=== PATIENT | female | born 1940 | race Caucasian/White ===

== ENCOUNTER 2016-06-27 14:27 | Emergency (ER) | payer MEDICARE ==
[~2016-06-27] VITALS: Ht 215.9 cm; Wt 92.4 kg
[~2016-06-27 14:27] MED LIST: CHOL200047 PO; CITA10TA7 PO; DICL100G5 TOP; GLIP5TAB PO; INSU100V12 SQ; LOSA100T44 PO; METO-277 PO; POTA-81 PO; SPIR25TA PO
[2016-06-27 14:30] VITALS: Ht 215.9 cm; Wt 92.4 kg
--- OUTSIDE RECORDS SUMMARY | 2016-06-27 14:31 | XMS REPORT | Continuity of Care Document ---
Author Author [place] [facility] Organization [facility] Address Unknown Phone Unavailable Support Name Relationship Address Phone JUNE, JOHNATHON Yeager DO Caregiver [address] [facility] [address] [facility] [place] [address] Unavailable MUSTAPHALUIS ALFREDO Matos Caregiver [address] [facility] [place] [address] Unavailable PAT BEATTY Next Of Kin [address] [place] [address] Insurance Providers Guarantor La Beatty Address [address] [place] [address] Email DENIED/NO TO PT PORTAL Payer Medicareadvantra Ppo Policy Number [id number] Subscriber's Name La Beatty Relationship 18 Self Group Number [id number] Advance Directives Directive Response Recorded Date/Time Advanced Directives Type None 11/09/15 8:10am Chief Complaint and Reason for Visit Chief Complaint Diabetic Problem Reason for Visit Adjustment disorder [id number] Problems Active Problems Medical Problem Onset Date Status Acute kidney injury Unknown Resolved CKD (chronic kidney disease), stage III Unknown Chronic Carotid stenosis Unknown Chronic Chronic kidney disease (CKD) Unknown Chronic DMII (diabetes mellitus, type 2) Unknown Chronic Degenerative arthritis of left knee Unknown Chronic Depression Unknown Chronic HTN (hypertension) Unknown Chronic Hyperkalemia Unknown Resolved Hyperlipidemia Unknown Chronic Hyperparathyroidism Unknown Chronic Hypertension Unknown Chronic Hyponatremia Unknown Acute Leukocytosis Unknown Resolved Lumbar spondylosis Unknown Chronic ADRIANA (obstructive sleep apnea) Unknown Chronic Obesity (BMI 30-39.9) Unknown Chronic Past Problems Medical Problem Onset Date Adjustment disorder Unknown Diabetes Unknown Fall on same level Unknown Left knee pain Unknown Low back pain Unknown Medications Current Home Medications Medication Dose Units Route Directions Days Qty Instructions Start Date Cholecalciferol (Vitamin D3) (Vitamin D3) 2,000 Unit Capsule 2,000 Unit Oral Daily 02/28/14 Citalopram Hydrobromide (Citalopram Hbr) 10 Mg Tablet 10 Mg Oral Daily 11/09/15 Diclofenac Sodium (Voltaren) 100 Gm Gel..gram. 1 Applic Topically Three Times A Day as needed for Prn Orders 11/09/15 Glipizide (Glipizide Xl) 5 Mg Tab.er.24 5 Mg Oral Twice A Day 11/15 Insulin Detemir (Levemir) 100 Unit/Ml Inj 40 Unit Sub-Q Bedtime 03/14/15 Losartan Potassium 100 Mg Tablet 100 Mg Oral Daily 11/09/15 Metoprolol Succinate 50 Mg Tab.er.24h 50 Mg Oral Daily 03/14/15 Potassium Chloride 20 Meq Tablet.er 40 Meq Oral Give With Breakfast 11/09/15 Spironolactone (Aldactone) 25 Mg Tablet 25 Mg Oral Daily 08/29/08 Past Home Medications Medication Directions Ordered Status Aspirin (Aspirin Ec) 81 Mg Tablet.dr, 1 Tab Oral Bedtime 03/14/15 Discontinued Losartan/Hydrochlorothiazide (Losartan-Hctz 100-12.5 Mg Tab) 1 Each Tablet, 1 Tab Oral Daily 02/28/14 Discontinued Pioglitazone Hcl 45 Mg Tablet, 1 Tab Oral Daily 02/28/14 Discontinued Potassium Gluconate 500 Mg Tablet, 595 Daily 03/01/14 Discontinued Social History Social History Problem Response Recorded Date/Time Onset Date Status Chewing Tobacco Status No 11/09/2015 8:45am Not Applicable Not Applicable Hx Substance Use No 11/09/2015 8:45am Not Applicable Not Applicable Hx Alcohol Use No 11/09/2015 8:45am Not Applicable Not Applicable Has the pt used tobacco in the last 12 months No 04/17/2015 6:37am Not Applicable Not Applicable Tobacco Usage none 04/18/2015 1:08pm Not Applicable Not Applicable Query Response Start Date Stop Date Smoking Status Unknown if ever smoked Hospital Discharge Instructions No hospital discharge instructions. Plan of Care Discharge Date 11/09/15 12:02pm Disposition 01 DISCHARGED HOME, SELF-CARE Condition at Discharge Improved Instructions/Education Provided Adjustment Disorder Prescriptions See Medication Section Referrals LUIS ALFREDO MAN DO Order Date: 1 Week Address: [address] [place] [address] [address] [place], [place] [phone] Note: Additional Instructions/Education Follow up with your doctor. Care Plan and Goals Physician Care Plan Problem: Adjustment disorder Goal: Follow up with primary care provider Instructions: Take medications and follow care plan as discussed/written Functional Status No functional status results. Allergies, Adverse Reactions, Alerts Allergen Type Severity Reaction Status Last Updated No Known Drug Allergies Allergy Unknown Active 11/09/15 Immunizations Query Response on File Recorded Date/Time Hx Influenza Vaccination Y NOVEMBER 2014 04/17/15 6:37am Hx Pneumococcal Vaccination Y PREVNAR 11 FEB 2015 04/17/15 6:37am Hx Influenza Vaccination Y NOVEMBER 2014 04/17/15 6:37am Influenza Vaccine Hx OCT. 201411/09/15 8:45am Vital Signs Acute Vital Signs Vital Response Date/Time Temperature (Fahrenheit) 98.2 deg F (96.8 - 99.1) 11/09/2015 12:02pm Temperature (Calculated Celsius) 36.03565 degrees C (36.0 - 37.3) 11/09/2015 12:02pm Pulse Rate (adult) 55 bpm (60 - 100) 11/09/2015 12:02pm Respiratory Rate 16 breaths/min (10 - 20) 11/09/2015 12:02pm O2 Sat by Pulse Oximetry 92 % (90 - 100) 11/09/2015 12:02pm Blood Pressure 134/62 mm Hg 11/09/2015 12:02pm Height (Feet) 5 feet 11/09/2015 8:10am Height (Inches) 2.00 inches 11/09/2015 8:10am Weight (Kilograms) 91.100 kg 11/09/2015 8:10am Body Mass Index (BMI) 36.0 11/09/2015 8:10am Results Laboratory Results Test Name Result Units Flags Reference Collection Date/Time Result Date/ Time Comments White Blood Count 8.5 T/MM3 4.5-11.0 11/09/2015 8:51am 11/09/2015 8: 58am Red Blood Count 4.32 M/MM3 4.00-5.20 11/09/2015 8:51am 11/09/2015 8: 58am Hemoglobin 12.6 GM/DL -11/09/2015 8:51am 11/09/2015 8:58am Hematocrit 38.1 % 36-46 11/09/2015 8:51am 11/09/2015 8:58am Mean Corpuscular Volume 88.2 UM3 80-100 11/09/2015 8:51am 11/09/2015 8: 58am Mean Corpuscular Hemoglobin 29.2 UUG 26-34 11/09/2015 8:51am 2015 8:58am Mean Corpuscular Hemoglobin Concent 33.1 GM/DL 31-37 11/09/2015 8:5111/09/2015 8:58am RDW Standard Deviation 37.6 FL 36.9-50.2 11/09/2015 8:51am 11/09/2015 8 :58am Platelet Count 300 T/MM3 130-400 11/09/2015 8:51am 11/09/2015 8:58am Mean Platelet Volume 9.2 UM3 L 9.4-12.4 11/09/2015 8:51am 11/09/2015 8: 58am Neutrophils (%) (Auto) 53.3 % 33-66 11/09/2015 8:51am 11/09/2015 8: 58am Lymphocytes (%) (Auto) 36.0 % 23-45 11/09/2015 8:51am 11/09/2015 8: 58am Monocytes (%) (Auto) 9.4 % H 0-9.0 11/09/2015 8:51am 11/09/2015 8:58am Eosinophils (%) (Auto) 0.7 % 0-4 11/09/2015 8:51am 11/09/2015 8:58am Basophils (%) (Auto) 0.4 % 0-2 11/09/2015 8:51am 11/09/2015 8:58am Immature Granulocyte % (Auto) 0.2 % 0.0-0.5 11/09/2015 8:am 2015 8:58am Absolute Neutrophils (auto) 4.5 T/MM3 1.8-7.7 11/09/2015 8:51am 2015 8:58am Absolute Lymphocytes (auto) 3.1 T/MM3 1-4.8 11/09/2015 8:51am 2015 8:58am Absolute Monocytes (auto) 0.8 T/MM3 0-0.8 11/09/2015 8:51am 11/09/2015 8:58am Absolute Eosinophils (auto) 0.1 T/MM3 0-0.5 11/09/2015 8:51am 2015 8:58am Absolute Basophils (auto) 0.0 T/MM3 0-0.2 11/09/2015 8:51am 11/09/2015 8:58am Absolute Immature Granulocyte (auto 0.02 T/MM3 0.00-0.03 11/09/2015 8: 51am 11/09/2015 8:58am Icterus Index < 2 0-7 11/09/2015 8:51am 11/09/2015 9:10am Chemistry Specimen Hemolysis < 15 0-25 11/09/2015 8:51am 11/09/2015 9 :10am 0-25: Specimen Exhibited No Hemolysis. Turbidity < 20 0-20 11/09/2015 8:51am 11/09/2015 9:10am Sodium Level 137 MEQ/L 134-144 11/09/2015 8:51am 11/09/2015 9:10am Potassium Level 4.0 MEQ/L 3.6-5 11/09/2015 8:51am 11/09/2015 9:10am Chloride Level 99 MEQ/L 98-107 11/09/2015 8:51am 11/09/2015 9:10am Carbon Dioxide Level 26 MEQ/L 22-30 11/09/2015 8:51am 11/09/2015 9: 10am Anion Gap 12 MEQ/L 5-15 11/09/2015 8:51am 11/09/2015 9:10am Blood Urea Nitrogen 19.0 MG/DL H 7-17 11/09/2015 8:51am 11/09/2015 9: 10am Creatinine 0.9 MG/DL 0.7-1.2 11/09/2015 8:51am 11/09/2015 9:10am BUN/Creatinine Ratio 21 RATIO 6-26 11/09/2015 8:51am 11/09/2015 9:10am Glomerular Filtration Rate Calc 61 11/09/2015 8:51am 11/09/2015 9: 10am Glucose Level 110 MG/DL 65-110 11/09/2015 8:51am 11/09/2015 9:10am Calculated Osmolality 267 MOSM/KG 261-280 11/09/2015 8:51am 11/09/2015 9:10am Calcium Level 9.8 MG/DL 8.4-10.2 11/09/2015 8:51am 11/09/2015 9:10am Troponin I < 0.012 ng/ml 0-0.12 11/09/2015 8:51am 11/09/2015 9:21am Troponin values with a difference of 55% increase from orginal troponin value represent a true biological DELTA value. (%increase Calc=Orginal Troponin value, divided by subsequent Troponin value, multiplied by 100) Urine Collection Type CLEANCATCH-MIDSTREAM 11/09/2015 10:46am 11/08 10:57am Urine Color YELLOW YELLOW 11/09/2015 10:46am 11/09/2015 10:57am Urine Turbidity CLEAR CLEAR 11/09/2015 10:46am 11/09/2015 10:57am Urine Specific Shushan <=1.005 L 1.015-1.025 11/09/2015 10:46am 2015 10:57am Urine pH 6.5 5.0-8.0 11/09/2015 10:46am 11/09/2015 10:57am Urine Leukocyte Esterase TRACE A NEGATIVE 11/09/2015 10:46am 2015 10:57am Urine Nitrite NEGATIVE NEGATIVE 11/09/2015 10:46am 11/09/2015 10: 57am Urine Protein NEGATIVE NEGATIVE 11/09/2015 10:46am 11/09/2015 10: 57am Urine Glucose (UA) NEGATIVE NEGATIVE 11/09/2015 10:46am 11/09/2015 10 :57am Urine Ketones NEGATIVE NEGATIVE 11/09/2015 10:46am 11/09/2015 10: 57am Urine Urobilinogen 0.2 EU/DL NORMAL 11/09/2015 10:46am 11/09/2015 10: 57am Urine Bilirubin NEGATIVE NEGATIVE 11/09/2015 10:46am 11/09/2015 10: 57am Urine Blood 2+ A NEGATIVE 11/09/2015 10:46am 11/09/2015 10:57am Urine WBC 1-3 /HPF 0-5 11/09/2015 10:46am 11/09/2015 11:31am Urine RBC 3-5 /HPF H 0-3 11/09/2015 10:46am 11/09/2015 11:31am Urine Squamous Epithelial Cells 0-5 11/09/2015 10:46am 11/09/2015 11:31am Urine Bacteria TRACE H NEGATIVE 11/09/2015 10:46am 11/09/2015 11:31am Urine Culture Indicated CULT NOT INDICATED 11/09/2015 10:46am 11/08 11:31am Glucometer 121 mg/dL H 65-110 11/09/2015 8:20am 11/09/2015 8:23am Name: LA BEATTY Unit #: [id number] : 1940 Sex: F Admit Date: Loc / Svc: ED Discharge Date: DIAGNOSTIC IMAGING REPORT Report #: [id number] [facility] [place] Indication: ITS.REASON: Shakiness PROCEDURE: CHEST 1 VIEW: Encounter: Initial Comparison: None FINDINGS: The lungs are clear. There is no abnormal airspace opacity, pleural effusion or pneumothorax identified. Cardiac silhouette is upper limits of normal to mildly enlarged. Prior sternotomy. Mediastinal contours and pulmonary vascularity appear normal. IMPRESSION: No pneumonia or congestive failure. Enlargement of the cardiac silhouette is probably due to cardiomegaly rather than pericardial effusion. . Procedures No known history of procedures. Encounters Encounter Location Arrival/Admit Date Discharge/Depart Date Attending Provider Departed Emergency Room [facility] 11/09/15 8:03am 11/09/15 12: 02pm JOHNATHON KEYS DO Recent Diagnosis
--- OUTSIDE RECORDS SUMMARY | 2016-06-27 14:31 | XMS REPORT | Continuity of Care Document ---
Author Author [place] [facility] Organization [facility] Address Unknown Phone Unavailable Support Name Relationship Address Phone SUZETTE TATUM MD Caregiver [address] [place] [address] [place] [address] [phone] ROBERTO WAKEFIELD MD Caregiver [address] [place] [address] [place] [address] [phone] PAT BEATTY Next Of Kin [address] [place] [address] Insurance Providers Payer Name Policy Number Subscriber Name Relationship Medicareadvantra Ppo [id number] La Beatty 18 Self Advance Directives Directive Response Recorded Date/Time Ordered Resuscitation Status Full Code, unverified 06/06/14 8:44am Resuscitation Documents on File No 06/05/14 2:35pm Problems No known problems or medical conditions. Medications Medication Dose Route Sig Days/Qty Instructions Order Date Discontinued Date Status Spironolactone 25 Mg PO DAILY 08/29/08 Active Aspirin 81 Mg PO DAILY 08/29/08 Active Insulin Glargine 30 Unit SQ BEDTIME 08/29/08 Active Furosemide 20 Mg PO DAILY 08/29/08 Active Metoprolol Tartrate 50 Mg PO DAILY 08/29/08 Active Pioglitazone HCl 1 Tab PO DAILY 30 Qty 02/28/14 Active Losartan/Hydrochlorothiazide 1 Tab PO DAILY 02/28/14 Active Cholecalciferol (Vitamin D3) 1 Tab PO DAILY 02/28/14 Active Potassium Gluconate 595 DAILY 03/01/14 Active Social History Social History Problem Response Recorded Date/Time Chewing Tobacco Status No 06/07/2014 8:12am Hx Substance Use No 06/07/2014 8:12am Hx Alcohol Use No 06/07/2014 8:12am Has the pt used tobacco in the last 12 months No 06/07/2014 8:12am Query Response Start Date Stop Date Smoking Status Never smoker Hospital Discharge Instructions No hospital discharge instructions. Plan of Care No plan of care. Functional Status No functional status results. Allergies, Adverse Reactions, Alerts Allergen Type Severity Reaction Status Last Updated No Known Drug Allergies Allergy Unknown Active 08/29/08 Immunizations Name Given Type Hx Influenza Vaccination Y FALL 2013 Historical Hx Pneumococcal Vaccination No Historical Hx Influenza Vaccination Y FALL 2013 Historical Vital Signs Acute Vital Signs Vital Response Date/Time Temperature (Fahrenheit) 97.0 deg F (96.8 - 99.1) Temperature (Calculated Celsius) 36.34754 degrees C (36.0 - 37.3) Temperature Source Temporal Pulse Rate (adult) 56 bpm (60 - 100) Respiratory Rate 15 breaths/min (10 - 20) O2 Sat by Pulse Oximetry 96 % (90 - 100) Oxygen Delivery Method Room Air Blood Pressure 125/57 mm Hg Blood Pressure Source Automatic Cuff Height 5 ft 2.5 in Weight 209 lb Body Mass Index 37.0 kg/m^2 Results Test Source Date Result Interp. Ref. Range Comments Activated Partial Thromboplast Time August 29, 2008 6:55pm 23.0 SEC L 25- 36 Alanine Aminotransferase (ALT/SGPT) August 29, 2008 6:55pm 27 U/L N 9-52 Albumin August 29, 2008 6:55pm 4.34 G/DL N 3.5-5.0 Albumin/Globulin Ratio August 29, 2008 6:55pm 1.4 RATIO N 1.1-2.2 Alkaline Phosphatase August 29, 2008 6:55pm 89 U/L N 38-126 Anion Gap June 07, 2014 8:13am 12 MEQ/L N 5-15 COMMENT SCU WILL CALL Aspartate Amino Transf (AST/SGOT) August 29, 2008 6:55pm 25 U/L N 14-36 B-Type Natriuretic Peptide August 29, 2008 6:55pm 116 PG/ML H 15-100 BUN/Creatinine Ratio June 07, 2014 8:13am 20 RATIO N 6-26 COMMENT SCU WILL CALL Band Neutrophils # August 29, 2008 6:55pm 0.2 T/MM3 - Band Neutrophils % August 29, 2008 6:55pm 2.0 % N 0-6 Basophils # (Auto) June 07, 2014 8:13am 0.0 T/MM3 N 0-0.2 Basophils (%) (Auto) June 07, 2014 8:13am 0.5 % N 0-2 Blood Urea Nitrogen June 07, 2014 8:13am 16.0 MG/DL N 7-17 COMMENT SCU WILL CALL Calcium Level June 07, 2014 8:13am 10.4 MG/DL H 8.4-10.2 COMMENT SCU WILL CALL Calculated Osmolality June 07, 2014 8:13am 276 MOSM/KG N 261-280 COMMENT SCU WILL CALL Carbon Dioxide Level June 07, 2014 8:13am 25 MEQ/L N 22-30 COMMENT SCU WILL CALL Chemistry Specimen Hemolysis June 07, 2014 8:13am < 15 0-25 0-25: No Hemolysis.26-70: Slight Hemolysis - can falsely elevate K and Urine Protein. 71-285: Moderate Hemolysis - can falsely elevate K, Troponin I, CA 19-9, PTH, CSF GLucose, and Urine Protein, and can falsely decrease Phenytoin. 286-999: Gross Hemolysis - can falsely elevate K, Troponin I, CA 19-9, PTH, CSF Glucose, and Urine Protine, and can falsely decrease Phenytoin. Recommend specimen recollection. Chloride Level June 07, 2014 8:13am 106 MEQ/L N 98-107 COMMENT SCU WILL CALL Creatinine June 07, 2014 8:13am 0.8 MG/DL N 0.7-1.2 COMMENT SCU WILL CALL Differential Total Cells Counted August 29, 2008 6:55pm 100 % - EKG August 30, 2008 6:20am Complete - Eosinophils # (Auto) June 07, 2014 8:13am 0.1 T/MM3 N 0-0.5 Eosinophils # (Manual) August 29, 2008 6:55pm 0.1 T/MM3 N 0-0.5 Eosinophils % (Manual) August 29, 2008 6:55pm 1.0 % N 0-4 Eosinophils (%) (Auto) June 07, 2014 8:13am 2.2 % N 0-4 Globulin August 29, 2008 6:55pm 3.0 G/DL N 2.4-3.6 Glomerular Filtration Rate Calc June 07, 2014 8:13am 71 - COMMENT SCU WILL CALL Glucometer June 07, 2014 10:34am 86 mg/dL N 65-110 Glucose Level June 07, 2014 8:13am 96 MG/DL N 65-110 COMMENT SCU WILL CALL Hematocrit June 07, 2014 8:13am 37.0 % N 36-46 Hemoglobin June 07, 2014 8:13am 12.0 GM/DL N 12-16 Icterus Index June 07, 2014 8:13am < 2 0-7 COMMENT SCU WILL CALL Immature Granulocyte # (Auto) June 07, 2014 8:13am 0.01 T/MM3 N 0.00- 0.03 Immature Granulocyte % (Auto) June 07, 2014 8:13am 0.2 % N 0.0-0.5 Lab Scanned Report May 04, 2014 7:49pm LAB TEST FORM REQUEST - Lymphocytes # (Auto) June 07, 2014 8:13am 2.7 T/MM3 N 1-4.8 Lymphocytes # (Manual) August 29, 2008 6:55pm 4.4 T/MM3 N 1-4.8 Lymphocytes % (Manual) August 29, 2008 6:55pm 41.0 % N 23-45 Lymphocytes (%) (Auto) June 07, 2014 8:13am 41.8 % N 23-45 Mean Corpuscular Hemoglobin June 07, 2014 8:13am 30.4 UUG N 26-34 Mean Corpuscular Hemoglobin Concent June 07, 2014 8:13am 32.4 GM/DL N 31-37 Mean Corpuscular Volume June 07, 2014 8:13am 93.7 UM3 N 80-100 Mean Platelet Volume June 07, 2014 8:13am 9.3 UM3 L 9.4-12.4 Monocytes # (Auto) June 07, 2014 8:13am 0.8 T/MM3 N 0-0.8 Monocytes # (Manual) August 29, 2008 6:55pm 0.8 T/MM3 N 0-0.8 Monocytes % (Manual) August 29, 2008 6:55pm 7.0 % N 0-9.0 Monocytes (%) (Auto) June 07, 2014 8:13am 12.4 % H 0-9.0 II-Gqf-G-Type Natriuretic Peptide May 04, 2014 10:10am 582 PG/ML H 0- 175 Rule in cut points: <50 years old=450; 50-75 years old=900; >75 years old=1800; When utilizing ProBNP rule-in cut points, adjustment for impaired renal function is typically not required. Neutrophils # (Auto) June 07, 2014 8:13am 2.8 T/MM3 N 1.8-7.7 Neutrophils # (Manual) August 29, 2008 6:55pm 5.3 T/MM3 N 1.8-7.7 Neutrophils % (Manual) August 29, 2008 6:55pm 49.0 % N 33-66 Neutrophils (%) (Auto) June 07, 2014 8:13am 42.9 % N 33-66 Platelet Count June 07, 2014 8:13am 231 T/MM3 N 130-400 Potassium Level June 07, 2014 8:13am 4.4 MEQ/L N 3.6-5 COMMENT SCU WILL CALL Prothromb Time International Ratio August 29, 2008 6:55pm 0.76 L 0.79- 1.23 THERAPUTIC RANGE=2.00-3.00 FOR ANTI-THROMBOSIS THERAPUTIC RANGE=2.50- 3.50 FOR IMPLANTED VALVE RDW Standard Deviation June 07, 2014 8:13am 39.8 FL N 36.9-50.2 Red Blood Count June 07, 2014 8:13am 3.95 M/MM3 L 4.00-5.20 Sodium Level June 07, 2014 8:13am 143 MEQ/L N 134-144 COMMENT SCU WILL CALL Total Bilirubin August 29, 2008 6:55pm 0.27 MG/DL N 0.20-1.30 Total Protein August 29, 2008 6:55pm 7.3 G/DL N 6.3-8.2 Troponin I August 30, 2008 5:30am 0.010 ng/ml N 0-0.12 Turbidity June 07, 2014 8:13am < 20 0-20 COMMENT SCU WILL CALL White Blood Count June 07, 2014 8:13am 6.4 T/MM3 N 4.5-11.0 Procedures Procedure Status Date Provider(s) ROUTINE VENIPUNCTURE completed 04/17/14 ENDOSCOPIC INJECTION/IMPLANT completed 04/17/14 SUZETTE TATUM MD METABOLIC PANEL TOTAL CA completed 04/17/14 COMPLETE CBC W/AUTO DIFF WBC completed 04/17/14 [id number] ITEM OR SERVICE completed 04/17/14 [id number] ITEM OR SERVICE completed 04/17/14 PROPOFOL INJ 500 MG/50ML completed 04/17/14 [id number]"RINGERS LACTATE INFUSION, UP TO 1000 CC" completed 04/17/14 [id number] SHIPPING AND NECESSARY SUPPLIES completed 04/17/14 ASSAY OF NATRIURETIC PEPTIDE completed 05/04/14 Cystoscopy with injection of Coaptite implant completed 06/07/14 SUZETTE TATUM MD Encounters Encounter Location Date/Time Registered Clinic [facility] 05/04/14 10:19am
--- OUTSIDE RECORDS SUMMARY | 2016-06-27 14:32 | XMS REPORT | Referral Summary ---
Author Author [facility], [facility] Organization [facility] Address Unknown Phone Unavailable Care Team Providers Care Community Sports Coordinator Name Role Phone Vipul Jaimes Primary Care Physician [phone] Encounter VC Date(s): 01/28/16 - 01/28/16 [facility] [place], [address] [place] [address] Discharge Disposition: 01-Home or Self Care Attending Physician: Vipul Jaimes DO Admitting Physician: Vipul Jaimes DO Vital Signs No data available for this section Problem List Condition Effective Dates Status Health Status Informant Arthritis(Confirmed) Active patient 1 Benign essential Active hypertension(Confirm ed)2 Hypertensive Active cardiomyopathy(Confi rmed)3 Coronary Active atherosclerosis unspec vessel(Confirmed)4 DDD(Confirmed)5 Active Depressive disorder, 2006 Active not elsewhere classified(Confirmed ) Diabetes w/o Active complication type II(Confirmed)6 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 3mild concentrical VH, mild pulmo. ECHO 06/12/08. See conversion document. 4See conversion document. 5See conversion document. 6See conversion document. 7Rt > Lft. See conversion document. 8See conversion document. 9See conversion document. 10foraminal narrowing L5-S1. See conversion document. 11See conversion document. 12See conversion document. Allergies, Adverse Reactions, Alerts No Known Medication Allergies Medications acetaminophen 650 mg, Oral, QID, 0 Refill(s) Start Date: 04/24/15 Status: Ordered citalopram 10 mg oral tablet See Instructions, TAKE ONE TABLET BY MOUTH DAILY, # 30 tabs, 2 Refill(s), eRx: [facility] #[id number], TAKE ONE TABLET BY MOUTH DAILY Start Date: 12/28/15 Status: Ordered Ecotrin mg, Oral, Daily, 0 Refill(s) Start Date: 04/25/15 Status: Ordered glipiZIDE 5 mg oral tablet 5 mg 1 tabs, Oral, BID, # 180 tabs, 3 Refill(s), Pharmacy: [facility] # [id number], 1 tabs Oral BID,x90 days Start Date: 10/10/15 Stop Date: 10/04/16 Status: Ordered Levemir FlexPen 100 units/mL subcutaneous solution 32 units, SubCutaneous, Bedtime (once a day), 20 units at bedtime, # 2 boxes, 6 Refill(s), Pharmacy: [facility] #[id number], 32 units SubCutaneous Bedtime ( once a day),Instr:32 units at bedtime Start Date: 03/21/15 Status: Ordered losartan 100 mg oral tablet See Instructions, TAKE ONE TABLET BY MOUTH DAILY, # 30 tabs, 2 Refill(s), eRx: [facility] #[id number], TAKE ONE TABLET BY MOUTH DAILY Start Date: 11/13/15 Status: Ordered Metoprolol Succinate ER 50 mg oral tablet, extended release See Instructions, TAKE ONE TABLET BY MOUTH DAILY, # 60 tabs, 2 Refill(s), eRx: [facility] #[id number], TAKE ONE TABLET BY MOUTH DAILY Start Date: 12/19/15 Status: Ordered MiraLax 17 g, Oral, Daily, 0 Refill(s) Start Date: 04/24/15 Status: Ordered Misc Medication Meloxicam/Topiramate/Tramadol/Lidocaine/Prilocaine compunded lotion 0.18/1/0.25 /2/2%, 0 Refill(s) Start Date: 11/01/15 Status: Ordered Miscellaneous DME DME Item One Touch Ultra 2 Glucose Test Strips Test once am & once pm DX - 250.00, See Instructions, # 100 Each, 0 Refill(s), Pharmacy: [id number], One Touch Ultra 2 Glucose Test Strips; Test once am & once pm; DX - 250.00 , Supply Start Date: 06/27/14 Status: Ordered ONETOUCH ULTRA TEST STRIPS See Instructions, USE ONE STRIP TO TEST EVERY MORNING AND EVERY EVENING, # 50 strip, eRx: [facility] #[id number], USE ONE STRIP TO TEST EVERY MORNING AND EVERY EVENING Start Date: 10/26/15 Status: Ordered ONETOUCH ULTRA TEST STRIPS See Instructions, USE ONE STRIP TO TEST EVERY MORNING AND EVERY EVENING, # 50 strip, 2 Refill(s), eRx: [facility] #[id number], USE ONE STRIP TO TEST EVERY MORNING AND EVERY EVENING Start Date: 11/23/15 Status: Ordered ONETOUCH ULTRA TEST STRIPS See Instructions, USE ONE STRIP TO TEST EVERY MORNING AND EVERY EVENING, # 50 strip, 1 Refill(s), eRx: [facility] #[id number], USE ONE STRIP TO TEST EVERY MORNING AND EVERY EVENING Start Date: 08/20/15 Status: Ordered potassium gluconate 595 mg oral tablet 1 tabs, Oral, Daily, # 100 tabs, 0 Refill(s) Start Date: 02/01/14 Status: Ordered spironolactone 25 mg oral tablet See Instructions, TAKE ONE TABLET BY MOUTH DAILY, # 90 tabs, eRx: [facility] #[id number], TAKE ONE TABLET BY MOUTH DAILY Start Date: 11/19/15 Status: Ordered Vitamin D3 2000 intl units oral tablet tabs, Oral, Daily, 0 Refill(s) Start Date: 02/01/14 Status: Ordered Results No data available for this section Immunizations Vaccine Date Refusal Reason influenza virus vaccine, inactivated 01/28/16 influenza virus vaccine, inactivated 02/13/14 pneumococcal 13-valent conjugate vaccine 01/31/15 tetanus-diphth toxoids (Td) adult/adol 09/24/99 Procedures Procedure Date Related Diagnosis Body Site Mammogram - screening1 07/20/15 Parathyroidectomy or exploration of 10/16/14 parathyroid(s);.. Cystoscopy2 06/07/14 Surgery3 04/17/14 CABG x 24 10/2005 Oophorectomy5 1983 Hysterectomy1981 Bladder7 Colonoscopy abnormal8 1done at [facility] [place]. No mammographic evidence of malignancy. See scanned copy 2Third Coaptite suburethral bulking implant. 3Coaptite suburethral bulking implant. 4Dr. Merced. See conversion document. 5She had surgery for ovarian cyst. She reports she has one ovary remaining. 6without SO. See conversion document. 73 bladder implants 8Adenomatous polyp Social History Social History Type Response Smoking Status Never smoker Assessment and Plan No data available for this section
--- OUTSIDE RECORDS SUMMARY | 2016-06-27 14:33 | XMS REPORT | Referral Summary ---
Author Author [facility] Organization [facility] Address Unknown Phone Unavailable Care Team Providers Care Inspector Insulation Name Role Phone Vipul Jaimes Primary Care Physician [phone] Encounter Date(s): 12/31/15 - 12/31/15 [facility] [address] [place] [address] [facility] Discharge Diagnosis: Diabetes type 2, uncontrolled Discharge Diagnosis: Mixed hyperlipidemia Discharge Diagnosis: senior living current use of insulin Discharge Diagnosis: Benign essential hypertension Discharge Diagnosis: Screening for thyroid disorder Discharge Disposition: 01-Home or Self Care Attending Physician: Shonna Lopez APRN Admitting Physician: Shonna Lopez APRN Vital Signs Most recent to 1 oldest [Reference Range]: Peripheral Pulse 72 bpm Rate [60-100 bpm] (12/31/15 2:56 PM) Blood Pressure 120/68 mmHg [90-140/60-90 mmHg] (12/31/15 2:56 PM) Problem List Condition Effective Dates Status Health Status Informant Arthritis(Confirmed) Active patient 1 Benign essential Active hypertension(Confirm ed)2 Hypertensive Active cardiomyopathy(Confi rmed)3 Coronary Active atherosclerosis unspec vessel(Confirmed)4 DDD(Confirmed)5 Active Depressive disorder, 2006 Active not elsewhere classified(Confirmed ) Diabetes w/o Active complication type II(Confirmed)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) Bilateral carotid [...] DAILY, # 30 tabs, 2 Refill(s), eRx: [facility] #[id number], TAKE ONE TABLET BY MOUTH DAILY Start Date: 12/28/15 Status: Ordered Ecotrin mg, Oral, Daily, 0 Refill(s) Start Date: 04/25/15 Status: Ordered glipiZIDE 5 mg oral tablet 5 mg 1 tabs, Oral, BID, # 180 tabs, 3 Refill(s), Pharmacy: [facility] # [id number], 1 tabs Oral BID,x90 days Start Date: 10/10/15 Stop Date: 10/04/16 Status: Ordered Levemir FlexPen 100 units/mL subcutaneous solution 32 units, SubCutaneous, Bedtime (once a day), 20 units at bedtime, # 2 boxes, 6 Refill(s), Pharmacy: [facility] #[id number], 32 units SubCutaneous Bedtime ( once a day),Instr:32 units at bedtime Start Date: 03/21/15 Status: Ordered losartan 100 mg oral tablet See Instructions, TAKE ONE TABLET BY MOUTH DAILY, # 30 tabs, 2 Refill(s), eRx: [facility] #[id number], TAKE ONE TABLET BY MOUTH DAILY Start Date: 11/13/15 Status: Ordered Metoprolol Succinate ER 50 mg oral tablet, extended release See Instructions, TAKE ONE TABLET BY MOUTH DAILY, # 60 tabs, 2 Refill(s), eRx: [facility] #[id number], TAKE ONE TABLET BY MOUTH DAILY Start [...] Instructions, # 100 Each, 0 Refill(s), Pharmacy: [id number], One Touch Ultra 2 Glucose Test Strips; Test once am & once pm; DX - 250.00 , Supply Start Date: 06/27/14 Status: Ordered ONETOUCH ULTRA TEST STRIPS See Instructions, USE ONE STRIP TO TEST EVERY MORNING AND EVERY EVENING, # 50 strip, eRx: [facility] #[id number], USE ONE STRIP TO TEST EVERY MORNING AND EVERY EVENING Start Date: 10/26/15 Status: Ordered ONETOUCH ULTRA TEST STRIPS See Instructions, USE ONE STRIP TO TEST EVERY MORNING AND EVERY EVENING, # 50 strip, 2 Refill(s), eRx: [facility] #[id number], USE ONE STRIP TO TEST EVERY MORNING AND EVERY EVENING Start Date: 11/23/15 Status: Ordered ONETOUCH ULTRA TEST STRIPS See Instructions, USE ONE STRIP TO TEST EVERY MORNING AND EVERY EVENING, # 50 strip, 1 Refill(s), eRx: [facility] #[id number], USE ONE STRIP TO TEST EVERY MORNING AND EVERY EVENING Start Date: 08/20/15 Status: Ordered potassium gluconate 595 mg oral tablet 1 tabs, Oral, Daily, # 100 tabs, 0 Refill(s) Start Date: 02/01/14 Status: Ordered spironolactone 25 mg oral tablet See Instructions, TAKE ONE TABLET BY MOUTH DAILY, # 90 tabs, eRx: [facility] #[id number], TAKE ONE TABLET BY MOUTH DAILY Start Date: 11/19/15 Status: Ordered Vitamin D3 2000 intl units oral tablet tabs, Oral, Daily, 0 Refill(s) Start Date: 02/01/14 Status: Ordered Results No data available for this section Immunizations Vaccine Date Refusal Reason influenza virus vaccine, inactivated 02/13/14 pneumococcal 13-valent conjugate vaccine 01/31/15 tetanus-diphth toxoids (Td) adult/adol 09/24/99 Procedures Procedure Date Related Diagnosis Body Site Mammogram - screening1 07/20/15 Parathyroidectomy or exploration of 10/16/14 parathyroid(s);.. Cystoscopy2 06/07/14 Surgery3 04/17/14 CABG x 24 10/2005 Oophorectomy5 1983 Hysterectomy6 1981 Bladder7 Colonoscopy abnormal8 1done at [facility]. No mammographic evidence of malignancy. See scanned copy 2Third Coaptite suburethral bulking implant. 3Coaptite suburethral bulking implant. 4Dr. Merced. See conversion document. 5She had surgery for ovarian cyst. She reports she has one ovary remaining. 6without SO. See conversion document. 73 bladder implants 8Adenomatous polyp Social History Social History Type Response Smoking Status Never smoker Assessment and Plan Extracted from: Title: Office Visit Note Author: Shonna Lopez BREAKFAST BAR ATTENDANT Date: 12/31/15 Assessment/Plan 1.Diabetes type 2, uncontrolled 1. check blood sugars fasting and 2 hours after meals 3-7 days per week 2. increase levemir 17-22 units 3. drug assistance forms for insulin provided 4. continue same dose of glipizide 5. rotate injection sites 6. monitor diet and exercise 7. monitor feet daily I discussed the patient with the preceptor. Ordered: insulin detemir, 32 units, SubCutaneous, Bedtime (once a day), 20 units at bedtime, # 2 boxes, 6 Refill(s), Pharmacy: [facility] #[id number], 32 units SubCutaneous Bedtime (once a day),Instr:32 units at bedtime Free T4 Hemoglobin A1c Office Visit Level 4 Est [id number] Return to Clinic TSH 3rd Generation 2.termite exterminator current use of insulin Ordered: insulin detemir, 32 units, SubCutaneous, Bedtime (once a day), 20 units at bedtime, # 2 boxes, 6 Refill(s), [facility]: [facility] #[id number], 32 units SubCutaneous Bedtime (once a day),Instr:32 units at bedtime Free T4 Hemoglobin A1c Office Visit Level 4 Est 54752 Return to Clinic TSH 3rd Generation 3.Benign essential hypertension Ordered: Free T4 Hemoglobin A1c Office Visit Level 4 Est 70185 Return to Clinic TSH 3rd Generation 4.Mixed hyperlipidemia Ordered: Free T4 Hemoglobin A1c Office Visit Level 4 Est 67520 Return to Clinic TSH 3rd Generation 5.Screening for thyroid disorder Ordered: Free T4 Hemoglobin A1c Office Visit Level 4 Est 89120 Return to Clinic TSH 3rd Generation Extracted from: Title: Ambulatory Patient Education Author: Shonna Lopez APRN Date: 12/31/15 Home Health Care Diabetes and Exercise Exercising regularly is important. It is not just about losing weight. It has many health benefits, such as: Improving your overall fitness, flexibility, and endurance. Increasing your bone density. Helping with weight control. Decreasing your body fat. Increasing your muscle strength. Reducing stress and tension. Improving your overall health. People with diabetes who exercise gain additional benefits because exercise: Reduces appetite. Improves the body's use of blood sugar (glucose). Helps lower or control blood glucose. Decreases blood pressure. Helps control blood lipids (such as cholesterol and triglycerides). Improves the body's use of the hormone insulin by: Increasing the body's insulin sensitivity. Reducing the body's insulin needs. Decreases the risk for heart disease because exercising: Lowers cholesterol and triglycerides levels. Increases the levels of good cholesterol (such as high-density lipoproteins [HDL]) in the body. Lowers blood glucose levels. YOUR ACTIVITY PLAN Choose an activity that you enjoy, and set realistic goals. To exercise safely, you should begin practicing any new physical activity slowly, and gradually increase the intensity of the exercise over time. Your health care provider or simulation educator can help create an activity plan that works for you. General recommendations include: Encouraging children to engage in at least 60 minutes of physical activity each day. Stretching and performing strength training exercises, such as yoga or weight lifting, at least 2 times per week. Performing a total of at least 150 minutes of moderate-intensity exercise each week, such as brisk walking or water aerobics. Exercising at least 3 days per week, making sure you allow no more than 2 consecutive days to pass without exercising. Avoiding long periods of inactivity (90 minutes or more). When you have to spend an extended period of time sitting down, take frequent breaks to walk or stretch. RECOMMENDATIONS FOR EXERCISING WITH TYPE 1 OR TYPE 2 DIABETES Check your blood glucose before exercising. If blood glucose levels are greater than 240 mg/dL, check for urine ketones. Do not exercise if ketones are present. Avoid injecting insulin into areas of the body that are going to be exercised. For example, avoid injecting insulin into: The arms when playing tennis. The legs when jogging. Keep a record of: Food intake before and after you exercise. Expected peak times of insulin action. Blood glucose levels before and after you exercise. The type and amount of exercise you have done. Review your records with your health care provider. Your health care provider will help you to develop guidelines for adjusting food intake and insulin amounts before and after exercising. If you take insulin or oral hypoglycemic agents, watch for signs and symptoms of hypoglycemia. They include: Dizziness. Shaking. Sweating. Chills. Confusion. Drink plenty of water while you exercise to prevent dehydration or heat stroke. Body water is lost during exercise and must be replaced. Talk to your health care provider before starting an exercise program to make sure it is safe for you. Remember, almost any type of activity is better than none. This information is not intended to replace advice given to you by your health care provider. Make sure you discuss any questions you have with your health care provider. Document Released: 05/08/2004 Document Revised: 07/03/2015 Document Reviewed: [employer] Interactive Patient Education 2016 [employer] No follow up information was provided. Referrals to Other Providers Referred by: Shonna Lopez APRN
--- OUTSIDE RECORDS SUMMARY | 2016-06-27 14:33 | XMS REPORT | Continuity of Care Document ---
Author Author [facility] Organization [facility] Address Unknown Phone Unavailable Support Name Relationship Address Phone SUZETTE TATUM MD Caregiver [address] [place] [address] [place] [address] [phone] ROBERTO WAKEFIELD MD Caregiver [address] [place] [address] [place] [address] [phone] PAT BEATTY Next Of Kin [address] [place] [address] Insurance Providers Payer Name Policy Number Subscriber Name Relationship Medicareadvantra Ppo [id number] [place] 18 Self Advance Directives Directive Response Recorded Date/Time Ordered Resuscitation Status Full Code, unverified 04/14/14 6:06pm Resuscitation Documents on File No 04/14/14 2:23pm Problems No known problems or medical conditions. Medications Medication Dose Route Sig Days/Qty Instructions Order Date Discontinued Date Status Spironolactone 25 Mg PO DAILY 08/29/08 Active Aspirin 81 Mg PO DAILY 08/29/08 Active Insulin Glargine 1-50 Unit SQ NEEDED 08/29/08 Active Furosemide 20 Mg PO DAILY 08/29/08 Active Metoprolol Tartrate 50 Mg PO DAILY 08/29/08 Active Pioglitazone HCl 1 Tab PO DAILY 30 Qty 02/28/14 Active Losartan/Hydrochlorothiazide 1 Tab PO DAILY 02/28/14 Active Cholecalciferol (Vitamin D3) 1 Tab PO DAILY 02/28/14 Active Ezetimibe DAILY 03/01/14 Active Potassium Gluconate 595 DAILY 03/01/14 Active Social History Social History Problem Response Recorded Date/Time Chewing Tobacco Status No 04/17/2014 8:25am Hx Substance Use No 04/17/2014 8:25am Hx Alcohol Use No 04/17/2014 8:25am Has the pt used tobacco in the last 12 months No 04/17/2014 8:25am Query Response Start Date Stop Date Smoking [...] Vital Signs Vital Response Date/Time Temperature (Fahrenheit) 96.9 deg F (96.8 - 99.1) Temperature (Calculated Celsius) 36.15133 degrees C (36.0 - 37.3) Temperature Source Temporal Pulse Rate (adult) 58 bpm (60 - 100) Respiratory Rate 16 breaths/min (10 - 20) O2 Sat by Pulse Oximetry 96 % (90 - 100) Oxygen Delivery Method Room Air Blood Pressure 123/57 mm Hg Blood Pressure Source Automatic Cuff Height 5 ft 2.5 in Weight 206 lb Body Mass Index 37.0 kg/m^2 Results [...] 6:55pm 89 U/L N 38-126 Anion Gap April 17, 2014 8:41am 9 MEQ/L N 5-15 Aspartate Amino Transf (AST/SGOT) August 29, 2008 6:55pm 25 U/L N 14-36 B-Type Natriuretic Peptide August 29, 2008 6:55pm 116 PG/ML H 15-100 BUN/Creatinine Ratio April 17, 2014 8:41am 30 RATIO H 6-26 Band Neutrophils # August 29, 2008 6:55pm 0.2 T/MM3 - Band Neutrophils % August 29, 2008 6:55pm 2.0 % N 0-6 Basophils # (Auto) April 17, 2014 8:41am 0.0 T/MM3 N 0-0.2 COMMENT SCU WILL CALL Basophils (%) (Auto) April 17, 2014 8:41am 0.7 % N 0-2 COMMENT SCU WILL CALL Blood Urea Nitrogen April 17, 2014 8:41am 30.0 MG/DL H 7-17 Calcium Level April 17, 2014 8:41am 10.8 MG/DL H 8.4-10.2 Calculated Osmolality April 17, 2014 8:41am 275 MOSM/KG N 261-280 Carbon Dioxide Level April 17, 2014 8:41am 29 MEQ/L N 22-30 Chemistry Specimen Hemolysis April 17, 2014 8:41am < 15 0-25 0-25 : No Hemolysis.26-70: Slight Hemolysis - can falsely elevate K and Urine Protein. 71-285: Moderate Hemolysis - can falsely elevate K, Troponin I, CA 19-9, PTH, CSF GLucose, and Urine Protein, and can falsely decrease Phenytoin. 286-999: Gross Hemolysis - can falsely elevate K, Troponin I, CA 19-9, PTH, CSF Glucose, and Urine Protine, and can falsely decrease Phenytoin. Recommend specimen recollection. Chloride Level April 17, 2014 8:41am 101 MEQ/L N 98-107 Creatinine April 17, 2014 8:41am 1.0 MG/DL N 0.7-1.2 Differential Total Cells Counted August 29, 2008 6:55pm 100 % - EKG August 30, 2008 6:20am Complete - Eosinophils # (Auto) April 17, 2014 8:41am 0.1 T/MM3 N 0-0.5 COMMENT SCU WILL CALL Eosinophils # (Manual) August 29, 2008 6:55pm 0.1 T/MM3 N 0-0.5 Eosinophils % (Manual) August 29, 2008 6:55pm 1.0 % N 0-4 Eosinophils (%) (Auto) April 17, 2014 8:41am 1.7 % N 0-4 COMMENT SCU WILL CALL Globulin August 29, 2008 6:55pm 3.0 G/DL N 2.4-3.6 Glomerular Filtration Rate Calc April 17, 2014 8:41am 55 - Glucometer August 30, 2008 2:12pm 204 mg/dL - Glucose Level April 17, 2014 8:41am 116 MG/DL H 65-110 Hematocrit April 17, 2014 8:41am 34.8 % L 36-46 COMMENT SCU WILL CALL Hemoglobin April 17, 2014 8:41am 11.2 GM/DL L 12-16 COMMENT SCU WILL CALL Icterus Index April 17, 2014 8:41am < 2 0-7 Immature Granulocyte # (Auto) April 17, 2014 8:41am 0.02 T/MM3 N 0.00 -0.03 COMMENT SCU WILL CALL Immature Granulocyte % (Auto) April 17, 2014 8:41am 0.3 % N 0.0-0.5 COMMENT SCU WILL CALL Lymphocytes # (Auto) April 17, 2014 8:41am 2.5 T/MM3 N 1-4.8 COMMENT SCU WILL CALL Lymphocytes # (Manual) August 29, 2008 6:55pm 4.4 T/MM3 N 1-4.8 Lymphocytes % (Manual) August 29, 2008 6:55pm 41.0 % N 23-45 Lymphocytes (%) (Auto) April 17, 2014 8:41am 43.5 % N 23-45 COMMENT SCU WILL CALL Mean Corpuscular Hemoglobin April 17, 2014 8:41am 29.9 UUG N 26-34 COMMENT SCU WILL CALL Mean Corpuscular Hemoglobin Concent April 17, 2014 8:41am 32.2 GM/DL N 31-37 COMMENT SCU WILL CALL Mean Corpuscular Volume April 17, 2014 8:41am 93.0 UM3 N 80-100 COMMENT SCU WILL CALL Mean Platelet Volume April 17, 2014 8:41am 9.0 UM3 L 9.4-12.4 COMMENT SCU WILL CALL Monocytes # (Auto) April 17, 2014 8:41am 0.6 T/MM3 N 0-0.8 COMMENT SCU WILL CALL Monocytes # (Manual) August 29, 2008 6:55pm 0.8 T/MM3 N 0-0.8 Monocytes % (Manual) August 29, 2008 6:55pm 7.0 % N 0-9.0 Monocytes (%) (Auto) April 17, 2014 8:41am 11.0 % H 0-9.0 COMMENT SCU WILL CALL Neutrophils # (Auto) April 17, 2014 8:41am 2.4 T/MM3 N 1.8-7.7 COMMENT SCU WILL CALL Neutrophils # (Manual) August 29, 2008 6:55pm 5.3 T/MM3 N 1.8-7.7 Neutrophils % (Manual) August 29, 2008 6:55pm 49.0 % N 33-66 Neutrophils (%) (Auto) April 17, 2014 8:41am 42.8 % N 33-66 COMMENT SCU WILL CALL Platelet Count April 17, 2014 8:41am 250 T/MM3 N 130-400 COMMENT SCU WILL CALL Potassium Level April 17, 2014 8:41am 4.6 MEQ/L N 3.6-5 Prothromb Time International Ratio August 29, 2008 6:55pm 0.76 L 0.79- 1.23 THERAPUTIC RANGE=2.00-3.00 FOR ANTI-THROMBOSIS THERAPUTIC RANGE=2.50- 3.50 FOR IMPLANTED VALVE RDW Standard Deviation April 17, 2014 8:41am 40.1 FL N 36.9-50.2 COMMENT SCU WILL CALL Red Blood Count April 17, 2014 8:41am 3.74 M/MM3 L 4.00-5.20 COMMENT SCU WILL CALL Sodium Level April 17, 2014 8:41am 139 MEQ/L N 134-144 Total Bilirubin August 29, 2008 6:55pm 0.27 MG/DL N 0.20-1.30 Total Protein August 29, 2008 6:55pm 7.3 G/DL N 6.3-8.2 Troponin I August 30, 2008 5:30am 0.010 ng/ml N 0-0.12 Turbidity April 17, 2014 8:41am < 20 0-20 White Blood Count April 17, 2014 8:41am 5.7 T/MM3 N 4.5-11.0 COMMENT SCU WILL CALL Procedures Procedure Status Date Provider(s) ROUTINE VENIPUNCTURE completed 03/01/14 ENDOSCOPIC INJECTION/IMPLANT completed 03/01/14 SUZETTE TATUM MD METABOLIC PANEL TOTAL CA completed 03/01/14 COMPLETE CBC W/AUTO DIFF WBC completed 03/01/14 [id number] ITEM OR SERVICE completed 03/01/14 [id number] ITEM OR SERVICE completed 03/01/14 [id number]"RINGERS LACTATE INFUSION, UP TO 1000 CC" completed 03/01/14 [id number] SHIPPING AND NECESSARY SUPPLIES completed 03/01/14 Cystoscopy with injection of Coaptite implant completed 04/17/14 SUZETTE TATUM MD
--- OUTSIDE RECORDS SUMMARY | 2016-06-27 14:33 | XMS REPORT | Referral Summary ---
Author Author [facility], Family [facility] Organization [facility] Address Unknown Phone Unavailable Care Team Providers Care Executive Talent Acquisition Consultant Name Role Phone Vipul Jaimes Primary Care Physician [phone] Encounter VC Date(s): 11/01/15 - 11/01/15 [facility] [place], [address] [place] [address] [[email or web address]] Discharge Diagnosis: Reactive inflammatory arthritis Discharge Diagnosis: Anxiety and depression Discharge Disposition: 01-Home or Self Care Attending Physician: Vipul Jaimes DO Vital Signs Most recent to 1 oldest [Reference Range]: Temperature Tympanic 36.3 degC [36.6-38.1 degC] *LOW* (11/01/15 10:11 AM) Peripheral Pulse 68 bpm Rate [60-100 bpm] (11/01/15 10:11 AM) Blood Pressure 118/52 mmHg [90-140/60-90 mmHg] (11/01/15 10:11 AM) Problem List Condition Effective Dates Status Health Status Informant Arthritis(Confirmed) Active patient 1 Benign essential Active hypertension(Confirm ed)2 Hypertensive Active cardiomyopathy(Confi rmed)3 Coronary Active atherosclerosis unspec vessel(Confirmed)4 DDD(Confirmed)5 Active Depressive disorder, 2006 Active not elsewhere classified(Confirmed ) Diabetes w/o Active complication type II(Confirmed)6 USP current Active use of insulin(Confirmed) Bilateral carotid [...] Status: Ordered citalopram 10 mg oral tablet 10 mg 1 tabs, Oral, Daily, # 30 tabs, 1 Refill(s), Pharmacy: [facility] # [id number], 1 tabs Oral Daily Start Date: 10/24/15 Status: Ordered Ecotrin mg, Oral, Daily, 0 Refill(s) Start Date: 04/25/15 Status: Ordered glipiZIDE 5 mg oral tablet 5 mg 1 tabs, Oral, BID, # 180 tabs, 3 Refill(s), Pharmacy: [facility] # [id number], 1 tabs Oral BID,x90 days Start Date: 10/10/15 Stop Date: 10/04/16 Status: Ordered Levemir FlexPen 100 units/mL subcutaneous solution 32 units, SubCutaneous, Bedtime (once a day), 32 units at bedtime, # 2 boxes, 6 Refill(s), Pharmacy: [facility] #[id number], 32 units SubCutaneous Bedtime ( once a day),Instr:32 units at bedtime Start Date: 03/21/15 Status: Ordered losartan 100 mg oral tablet See Instructions, TAKE ONE TABLET BY MOUTH ONCE DAILY, # 30 tabs, 5 Refill(s), eRx: [id number], TAKE ONE TABLET BY MOUTH ONCE DAILY Start Date: 03/08/15 Status: Ordered Metoprolol Succinate ER 50 mg oral tablet, extended release See Instructions, TAKE ONE TABLET BY MOUTH ONCE DAILY, # 60 tabs, 2 Refill(s), Pharmacy: [facility] #[id number] Start Date: 06/01/15 Status: Ordered MiraLax 17 g, Oral, Daily, 0 Refill(s) Start Date: 04/24/15 Status: Ordered Misc Medication Meloxicam/Topiramate/Tramadol/Lidocaine/Prilocaine compunded lotion 0.18/1/0.25 /2/2%, 0 Refill(s) Start Date: 11/01/15 Status: Ordered Miscellaneous DME DME Item One Touch Ultra 2 Glucose Test Strips Test once am & once pm DX - 250.00, See Instructions, # 100 Each, 0 Refill(s), Pharmacy: [id number], One Touch Ultra 2 Glucose Test Strips; Test once am & once pm; DX - 250.00 , Supply Start Date: 06/27/14 Status: Ordered ONETOUCH ULTRA TEST STRIPS See Instructions, USE ONE STRIP TO TEST EVERY MORNING AND EVERY EVENING, # 50 strip, eRx: [facility] #[id number], USE ONE STRIP TO TEST EVERY MORNING AND EVERY EVENING Start Date: 10/26/15 Status: Ordered ONETOUCH ULTRA TEST STRIPS See Instructions, USE ONE STRIP TO TEST EVERY MORNING AND EVERY EVENING, # 50 strip, 1 Refill(s), eRx: [facility] #[id number], USE ONE STRIP TO TEST EVERY MORNING AND EVERY EVENING Start Date: 08/20/15 Status: Ordered potassium gluconate 595 mg oral tablet 1 tabs, Oral, Daily, # 100 tabs, 0 Refill(s) Start Date: 02/01/14 Status: Ordered spironolactone 25 mg oral tablet See Instructions, TAKE ONE TABLET BY MOUTH DAILY, # 90 tabs, eRx: [facility] #[id number], TAKE ONE TABLET BY MOUTH DAILY Start Date: 08/20/15 Status: Ordered Vitamin D3 2000 intl units oral tablet tabs, Oral, Daily, 0 Refill(s) Start Date: 02/01/14 Status: Ordered Results No data available for this section Immunizations Vaccine Date Refusal Reason influenza virus vaccine, inactivated 02/13/14 pneumococcal 13-valent conjugate vaccine 01/31/15 tetanus-diphth toxoids (Td) adult/adol 09/24/99 Procedures Procedure Date Related Diagnosis Body Site Arthrocentesis, aspiration and/or injection, 11/01/15 small joint or bursa (eg, fingers, toes); without ultrasound guidance Mammogram - screening1 07/20/15 Parathyroidectomy or exploration of 10/16/14 parathyroid(s);.. Cystoscopy2 06/07/14 Surgery3 04/17/14 CABG x 24 10/2005 Oophorectomy5 1984 Hysterectomy6 1982 Bladder7 Colonoscopy abnormal8 1done at [facility]. No mammographic evidence of [...] Extracted from: Title: Office Visit Note Author: Vipul Jaimes DO Date: 11/01/15 Assessment/Plan 1.Reactive inflammatory arthritis Since this appears to be reactive arthritis to the first metatarsophalangeal joint of the right foot, I recommended joint injection. Patient was agreeable. Using sterile technique, the joint was injected using 40 mg of Kenalog and 1 mL of Marcaine. Patient tolerated treatment well and had improvement in her discomfort prior to dismissal. Ordered: Arthro/Asp Small Joint or Bursa Inj Office Visit Level 4 Est 27332 2.Anxiety and depression, Other mixed anxiety disorders Her shakiness is likely anxiety/stress related. Continue with citalopram as previous. Follow-up if worsening presentation. Recommended counseling. Recommended discussing treatment plan of her 's care with the oncologist. Ordered: Office Visit Level 4 Est [id number]
--- OUTSIDE RECORDS SUMMARY | 2016-06-27 14:33 | XMS REPORT | Continuity of Care Document ---
Author Author [facility] Organization [facility] Address Unknown Phone Unavailable Support Name Relationship Address Phone MIGUEL A DIAS MD Caregiver [address] [place] [address] [place] [address] [phone] SUZETTE TATUM MD Caregiver [address] [place] [address] [place] [address] [phone] ROBERTO WAKEFIELD MD Caregiver [address] [place] [address] [place] [address] [phone] PAT BEATTY Next Of Kin [address] [place] [id number] Insurance Providers Payer Name Policy Number Subscriber Name Relationship Medicareadvantra Ppo [id number] [place] Beat[place] 18 Self Advance Directives Directive Response Recorded Date/Time Ordered Resuscitation Status Full Code, unverified 02/28/14 2:17pm Resuscitation Documents on File No 02/28/14 9:41am Problems No known problems or medical conditions. Medications Medication Dose Route Sig Days/Qty Instructions Order Date Discontinued Date Status Spironolactone 25 Mg PO DAILY 08/29/08 Active Aspirin 81 Mg PO DAILY 08/29/08 Active Insulin Glargine 50 Unit SUBCUT NEEDED 08/29/08 Active Furosemide 20 Mg PO DAILY 08/29/08 Active Metoprolol Tartrate 50 Mg PO DAILY 08/29/08 Active Metformin Hcl 500 Mg PO TWICE A DAY 08/29/08 Active Pioglitazone HCl 1 Tab PO DAILY 30 Qty 02/28/14 Active Losartan/Hydrochlorothiazide 1 Tab PO DAILY 02/28/14 Active Cholecalciferol (Vitamin D3) 1 Tab PO DAILY 02/28/14 Active Ezetimibe DAILY 03/01/14 Active Potassium Gluconate 595 DAILY 03/01/14 Active Social History Social History Problem Response Recorded Date/Time Chewing Tobacco Status No 02/28/2014 9:32am Hx Substance Use No 02/28/2014 9:32am Hx Alcohol Use No 02/28/2014 9:32am Has the pt used tobacco in the last 12 months No 02/28/2014 9:32am Query Response Start Date Stop Date Smoking [...] Vital Signs Vital Response Date/Time Temperature (Fahrenheit) 97.1 deg F (96.8 - 99.1) Temperature (Calculated Celsius) 36.24762 degrees C (36.0 - 37.3) Temperature Source Temporal Pulse Rate (adult) 51 bpm (60 - 100) Respiratory Rate 12 breaths/min (10 - 20) O2 Sat by Pulse Oximetry 95 % (90 - 100) Oxygen Delivery Method Room Air Blood Pressure 125/61 mm Hg Blood Pressure Source Automatic Cuff Height 5 ft 2.5 in Weight 203 lb Body Mass Index 36.0 kg/m^2 Results Test Source Date Result Interp. [...] 6:55pm 89 U/L N 38-126 Anion Gap March 01, 2014 7:24am 7 MEQ/L N 5-15 Aspartate Amino Transf (AST/SGOT) August 29, 2008 6:55pm 25 U/L N 14-36 B-Type Natriuretic Peptide August 29, 2008 6:55pm 116 PG/ML H 15-100 BUN/Creatinine Ratio March 01, 2014 7:24am 31 RATIO H 6-26 Band Neutrophils # August 29, 2008 6:55pm 0.2 T/MM3 - Band Neutrophils % August 29, 2008 6:55pm 2.0 % N 0-6 Basophils # (Auto) March 01, 2014 7:24am 0.0 T/MM3 N 0-0.2 COMMENT SCU WILL CALL Basophils (%) (Auto) March 01, 2014 7:24am 0.6 % N 0-2 COMMENT SCU WILL CALL Blood Urea Nitrogen March 01, 2014 7:24am 34.0 MG/DL H 7-17 Calcium Level March 01, 2014 7:24am 10.9 MG/DL H 8.4-10.2 Calculated Osmolality March 01, 2014 7:24am 278 MOSM/KG N 261-280 Carbon Dioxide Level March 01, 2014 7:24am 28 MEQ/L N 22-30 Chemistry Specimen Hemolysis March 01, 2014 7:24am < 15 0-25 0-25 : No Hemolysis.26-70: [...] decrease Phenytoin. Recommend specimen recollection. Chloride Level March 01, 2014 7:24am 105 MEQ/L N 98-107 Creatinine March 01, 2014 7:24am 1.1 MG/DL N 0.7-1.2 Differential Total Cells Counted August 29, 2008 6:55pm 100 % - EKG August 30, 2008 6:20am Complete - Eosinophils # (Auto) March 01, 2014 7:24am 0.2 T/MM3 N 0-0.5 COMMENT SCU WILL CALL Eosinophils # (Manual) August 29, 2008 6:55pm 0.1 T/MM3 N 0-0.5 Eosinophils % (Manual) August 29, 2008 6:55pm 1.0 % N 0-4 Eosinophils (%) (Auto) March 01, 2014 7:24am 2.1 % N 0-4 COMMENT SCU WILL CALL Globulin August 29, 2008 6:55pm 3.0 G/DL N 2.4-3.6 Glomerular Filtration Rate Calc March 01, 2014 7:24am 49 - Glucometer August 30, 2008 2:12pm 204 mg/dL - Glucose Level March 01, 2014 7:24am 117 MG/DL H 65-110 Hematocrit March 01, 2014 7:24am 36.9 % N 36-46 COMMENT SCU WILL CALL Hemoglobin March 01, 2014 7:24am 11.8 GM/DL L 12-16 COMMENT SCU WILL CALL Icterus Index March 01, 2014 7:24am < 2 0-7 Immature Granulocyte # (Auto) March 01, 2014 7:24am 0.02 T/MM3 N 0.00 -0.03 COMMENT SCU WILL CALL Immature Granulocyte % (Auto) March 01, 2014 7:24am 0.3 % N 0.0-0.5 COMMENT SCU WILL CALL Lymphocytes # (Auto) March 01, 2014 7:24am 2.4 T/MM3 N 1-4.8 COMMENT SCU WILL CALL Lymphocytes # (Manual) August 29, 2008 6:55pm 4.4 T/MM3 N 1-4.8 Lymphocytes % (Manual) August 29, 2008 6:55pm 41.0 % N 23-45 Lymphocytes (%) (Auto) March 01, 2014 7:24am 34.7 % N 23-45 COMMENT SCU WILL CALL Mean Corpuscular Hemoglobin March 01, 2014 7:24am 29.9 UUG N 26-34 COMMENT SCU WILL CALL Mean Corpuscular Hemoglobin Concent March 01, 2014 7:24am 32.0 GM/DL N 31-37 COMMENT SCU WILL CALL Mean Corpuscular Volume March 01, 2014 7:24am 93.7 UM3 N 80-100 COMMENT SCU WILL CALL Mean Platelet Volume March 01, 2014 7:24am 9.6 UM3 N 9.4-12.4 COMMENT SCU WILL CALL Monocytes # (Auto) March 01, 2014 7:24am 0.9 T/MM3 H 0-0.8 COMMENT SCU WILL CALL Monocytes # (Manual) August 29, 2008 6:55pm 0.8 T/MM3 N 0-0.8 Monocytes % (Manual) August 29, 2008 6:55pm 7.0 % N 0-9.0 Monocytes (%) (Auto) March 01, 2014 7:24am 12.5 % H 0-9.0 COMMENT SCU WILL CALL Neutrophils # (Auto) March 01, 2014 7:24am 3.5 T/MM3 N 1.8-7.7 COMMENT SCU WILL CALL Neutrophils # (Manual) August 29, 2008 6:55pm 5.3 T/MM3 N 1.8-7.7 Neutrophils % (Manual) August 29, 2008 6:55pm 49.0 % N 33-66 Neutrophils (%) (Auto) March 01, 2014 7:24am 49.8 % N 33-66 COMMENT SCU WILL CALL Platelet Count March 01, 2014 7:24am 238 T/MM3 N 130-400 COMMENT SCU WILL CALL Potassium Level March 01, 2014 7:24am 4.4 MEQ/L N 3.6-5 Prothromb Time International Ratio August 29, 2008 6:55pm 0.76 L 0.79- 1.23 THERAPUTIC RANGE=2.00-3.00 FOR ANTI-THROMBOSIS THERAPUTIC RANGE=2.50- 3.50 FOR IMPLANTED VALVE RDW Standard Deviation March 01, 2014 7:24am 40.1 FL N 36.9-50.2 COMMENT SCU WILL CALL Red Blood Count March 01, 2014 7:24am 3.94 M/MM3 L 4.00-5.20 COMMENT SCU WILL CALL Sodium Level March 01, 2014 7:24am 140 MEQ/L N 134-144 Total Bilirubin August 29, 2008 6:55pm 0.27 MG/DL N 0.20-1.30 Total Protein August 29, 2008 6:55pm 7.3 G/DL N 6.3-8.2 Troponin I August 30, 2008 5:30am 0.010 ng/ml N 0-0.12 Turbidity March 01, 2014 7:24am < 20 0-20 White Blood Count March 01, 2014 7:24am 7.0 T/MM3 N 4.5-11.0 COMMENT SCU WILL CALL Procedures Procedure Status Date Provider(s) Cystoscopy with injection of Coaptite implant completed 03/01/14 SUZETTE TATUM MD
[2016-06-27] MEDS ORDERED: SULF1TAB3 PO (14:51)
[2016-06-27] MEDS ORDERED: NYST15CR2 TOP (14:51)
--- NOTE | 2016-06-27 15:24 | NUR ---
PROVIDER DR HAMPTON IN TO SEE PATIENT.
[2016-06-27] MEDS ORDERED: NORMAL SALINE 1,000 ML IV ONE (15:36)
--- OUTSIDE RECORDS SUMMARY | 2016-06-27 15:44 | XMS REPORT | Continuity of Care Document ---
Author Author [facility] Organization [facility] Address Unknown Phone Unavailable Support Name Relationship Address Phone SUZETTE TATUM MD Caregiver [address] [place] [address] [place] [address] [phone] ROBERTO WAKEFIELD MD Caregiver [address] [place] [address] [place] [address] [phone] PAT BEATTY Next Of Kin [address] [place] [address] Insurance Providers Payer Name Policy Number Subscriber Name Relationship Medicareadvantra Ppo [id number] [place] Beatty 18 Self Advance Directives Directive [...] F (96.8 - 99.1) Temperature (Calculated Celsius) 36.56324 degrees C (36.0 - 37.3) Temperature Source [...] 07, 2014 8:13am 12.4 % H 0-9.0 UC-Orc-T-Type Natriuretic Peptide May 04, 2014 10:10am 582 [...] COMPLETE CBC W/AUTO DIFF WBC completed 04/17/14 [id number] ITEM OR SERVICE completed 04/17/14 [id number] ITEM OR SERVICE completed 04/17/14 PROPOFOL INJ 500 MG/50ML completed 04/17/14 [id number]"RINGERS LACTATE INFUSION, UP TO 1000 CC" completed 04/17/14 [id number] SHIPPING AND NECESSARY SUPPLIES completed 04/17/14 ASSAY OF NATRIURETIC PEPTIDE completed 05/04/14 Cystoscopy with injection of Coaptite implant completed 06/07/14 SUZETTE TATUM MD Encounters Encounter Location Date/Time Registered Clinic [facility] 05/04/14 10:19am
--- OUTSIDE RECORDS SUMMARY | 2016-06-27 15:46 | XMS REPORT | Continuity of Care Document ---
Author Author [facility] Organization [facility] Address Unknown Phone Unavailable Support Name Relationship Address Phone SUZETTE TATUM MD Caregiver [address] [place] [address] [place] [address] [phone] ROBERTO WAKEFIELD MD Caregiver [address] [place] [address] [place] [address] [phone] PAT BEATTY Next Of Kin [address] [place] [address] Insurance Providers Payer Name Policy Number Subscriber Name Relationship Medicareadvantra Ppo [id number] La Beatty 18 Self Advance Directives Directive [...] F (96.8 - 99.1) Temperature (Calculated Celsius) 36.04996 degrees C (36.0 - 37.3) Temperature Source [...] COMPLETE CBC W/AUTO DIFF WBC completed 03/01/14 [id number] ITEM OR SERVICE completed 03/01/14 [id number] ITEM OR SERVICE completed 03/01/14 [id number]"RINGERS LACTATE INFUSION, UP TO 1000 CC" completed 03/01/14 [id number] SHIPPING AND NECESSARY SUPPLIES completed 03/01/14 Cystoscopy with injection of Coaptite implant completed 04/17/14 SUZETTE TATUM MD
--- OUTSIDE RECORDS SUMMARY | 2016-06-27 15:47 | XMS REPORT | Continuity of Care Document ---
Author Author [place] [facility] Organization [facility] Address Unknown Phone Unavailable Support Name Relationship Address Phone MIGUEL A DIAS MD Caregiver [address] [place] [address] [place] [address] [phone] SUZETTE TATUM MD Caregiver [address] [place] [address] [place] [address] [phone] ROBERTO WAKEFIELD MD Caregiver [address] [place] [address] [place] [address] [phone] PAT BEATTY Next Of Kin [address] [place] [id number] Insurance Providers Payer Name Policy Number Subscriber Name Relationship Medicareadvantra Ppo [id number] La Beatty 18 Self Advance Directives Directive [...] F (96.8 - 99.1) Temperature (Calculated Celsius) 36.87765 degrees C (36.0 - 37.3) Temperature Source [...]
[2016-06-27 16:01] LABS: BLOOD, URINE 1+ (NEGATIVE); COLOR,URINE YELLOW (YELLOW); LEUKOCYTE ESTERASE ,URINE NEGATIVE (NEGATIVE); NITRITE,URINE NEGATIVE (NEGATIVE); UROBILINOGEN,URINE 0.2 EU/DL (NORMAL)
--- NOTE | 2016-06-27 16:08 | ERPDOC ---
Departure Disposition Decision Date: Jun 27, 2016 Disposition Decision Time: 17:52 Disposition: 01 DISCHARGED HOME, SELF-CARE Impression Impression Impression: Primary Impression: Exhaustion Additional Impression: UTI (urinary tract infection) Severity: Moderate Condition: Improved Seen By: Physician only Referrals: LUIS ALFREDO MAN DO (Family) Patient Instructions: Fatigue (ED), Parkinson Disease (ED) Problems/Meds/Labs Reviewed?: Yes Medications reviewed and manag: Yes Additional Instructions: Increase fluids, rest for the weekend. Continue your antibiotics. Please see your primary care provider next week and ask about the potential of Parkinson's disease being a diagnosis for you. Follow up care ordered?: Yes HPI - General Medical General Chief Complaint: General Stated Complaint: SICK GENERAL Time Seen by Provider: 15:22 HPI - General Medical Initial Comments 75-year-old female presents with shakiness. Patient was diagnosed with UTI 2 days ago and started on Bactrim. She was very active and busy yesterday and "probably did too much". She went shopping today, feeling tired. Most she was shopping she began to feel shaky. This worsened throughout the time she was in the store and ultimately EMS was called as other shoppers noticed that she was not feeling well. She has a normal tremor, but feels like it is worsening lately. No family history of Parkinson's disease. Allergies: Coded Allergies: No Known Drug Allergies (Verified Allergy, Unknown, 11/09/15) Past History Patient Surgical History Left knee total arthroplasty on April 17, 2015, Dr. Bailey Echocardiogram April 09, 2015: EF 63%, diastolic dysfunction I, mild aortic valve sclerosis Carotid duplex on April 09, 2015: Less than 20% stenosis bilaterally Parathyroidectomy, September 2014 CABG 2005 Oopherectomy 1984 Hysterectomy, 1981 Past Medical History Metabolic: diabetes ENMT: sleep apnea Cardiac: CAD, CHF Musculoskeletal: osteoarthritis Psychological: depression Surgical History General: colonoscopy Cardiac: cardiac bypass, cardiac cath Reproductive/: hysterectomy, other Joint: knee Family History Family PMH: FOUND: hypertension Vaccines Hx Influenza Vaccination: Yes (NOVEMBER 2014) Hx Pneumococcal Vaccination: Yes (PREVNAR 11 FEB 2015) Social History Smoking Status: Never smoker Does patient use chewing tobac: No Substance Use Type: does not use Alcohol Intake: none Record Review Pertinent history updated: Yes Review of Systems GI Upper Abdomen: see HPI General: see HPI Musculoskeletal General: see HPI Neurological General: see HPI All other Systems All Other Systems: Reviewed and Negative Physical Exam General General Nourishment: well nourished, well developed, appears stated age General Body Habitus: well groomed Vitals and Pain First Documented Vital Signs Date Time Temp Pulse Resp B/P Pulse Ox O2 Delivery O2 Flow Rate FiO2 06/27/16 14:30 98.3 73 20 180/80 94 Weight: Kilograms: 92.400 Height (feet): 5 Height (inches): 25.00 Triage Pain Scale: Normal Exams: Head: Normocephalic w/o trauma Chest/Resp: Clear all orellana, with good airflow, and symmetry bilaterally CV: Regular rate and rhythm, without murmur or gallop, Pulses 2+ all extremities, capillary refill, <2 seconds all ext., no pedal edema noted Abdomen: Bowel sounds positive, non-distended, no hepatosplenomegaly, masses or bruits noted Neurologic: Patient is alert, and oriented, cranial nerves, motor/sensory/ cerebellar, exams w/o gross deficits, to observation Psychiatric: Patient exhibits, appropriate attention, emotion and affect Neurologic (brief) Neurological Brief: FOUND: CN w/o gross def to obs Comments Patient has fine tremor in both hands were held on. Right hand seems somewhat worse than left Differential Diagnoses Considering: Alcohol Intoxication, Depression, Drug Overdose, Encephalitis, Hypo/Hyperglycemia, Metabolic, Pneumonia, Poisoning/Accidental OD Progress Results/Orders Orders Procedure Category Date Status Time Iv Lock (Ed Only) EDM 06/27/16 Transmitted 15:36 Cbc W/Auto LAB 06/27/16 Complete Diff-Reflex Manual 15:36 Cmp - Comprehensive LAB 06/27/16 Complete Metabolic 15:36 Acetaminophen LAB 06/27/16 Complete 15:36 Salicylate LAB 06/27/16 Complete 15:36 Tsh - Thyroid Stim LAB 06/27/16 Complete Hormone 15:36 Chest, Pa & Lateral RAD 06/27/16 Resulted 15:36 Normal Saline (Normal PHA 06/27/16 Complete Saline Iv) 15:36 UA, LAB 06/27/16 Complete Dip&Micro(Complete) & 15:56 Lab Results Laboratory Tests Test 06/27/16 15:56 White Blood Count 9.9T/MM3 Red Blood Count 4.59M/MM3 Hemoglobin 13.5GM/DL Hematocrit 40.3% Mean Corpuscular Volume 87.8UM3 Mean Corpuscular Hemoglobin 29.4UUG Mean Corpuscular Hemoglobin Concent 33.5GM/DL RDW Standard Deviation 38.6FL Platelet Count 280T/MM3 Mean Platelet Volume 9.4UM3 Immature Granulocyte % (Auto) 0.3% Neutrophils (%) (Auto) 56.7% Lymphocytes (%) (Auto) 32.2% Monocytes (%) (Auto) 9.1% Eosinophils (%) (Auto) 1.2% Basophils (%) (Auto) 0.5% Absolute Immature Granulocyte (auto 0.03T/MM3 Absolute Neutrophils (auto) 5.6T/MM3 Absolute Lymphocytes (auto) 3.2T/MM3 Absolute Monocytes (auto) 0.9T/MM3 Absolute Eosinophils (auto) 0.1T/MM3 Absolute Basophils (auto) 0.1T/MM3 Urine Collection Type Cleancatch-midstream Urine Color Yellow Urine Turbidity Clear Urine pH 5.5 Urine Specific [place] 1.010 Urine Protein Negative Urine Glucose (UA) 2+ Urine Ketones Negative Urine Blood 1+ Urine Nitrite Negative Urine Bilirubin Negative Urine Urobilinogen 0.2EU/DL Urine Leukocyte Esterase Negative Urine RBC 0-1/HPF Urine WBC 0-1/HPF Urine Squamous Epithelial Cells 0-5 Urine Bacteria Trace Urine Culture Indicated Cult not indicated Turbidity < 20 Sodium Level 140MEQ/L Potassium Level 4.3MEQ/L Chloride Level 101MEQ/L Carbon Dioxide Level 25MEQ/L Anion Gap 14MEQ/L Blood Urea Nitrogen 20.0MG/DL Creatinine 1.2MG/DL Glomerular Filtration Rate Calc 44 BUN/Creatinine Ratio 17RATIO Glucose Level 216MG/DL Calculated Osmolality 279MOSM/KG Calcium Level 10.0MG/DL Total Bilirubin 0.80MG/DL Icterus Index < 2 Aspartate Amino Transf (AST/SGOT) 23U/L Alanine Aminotransferase (ALT/SGPT) 36U/L Alkaline Phosphatase 76U/L Total Protein 7.5G/DL Albumin 4.4G/DL Globulin 3.1G/DL Albumin/Globulin Ratio 1.4RATIO Thyroid Stimulating Hormone (TSH) 1.00MIU/L Chemistry Specimen Hemolysis < 15 Salicylates Level < 1.0MG/DL Acetaminophen Level < 10UG/ML Medications Current ED Medications Sodium Chloride (Normal Saline IV) 1,000 ml @ 500 mls/hr Q2H ONCE IV Last administered on 06/27/16t 16:15; Start 06/27/16 at 15:36; Stop 06/27/16 at 17:35 ; Status DC Progress Progress CBC Returned normal as did essentially all the other labs. Patient has no obvious cause of the weakness while shopping, except for the fact that she has a UTI, is 75 years old and really exerted herself yesterday. Exhaustion may be enough to have done it. I do have some concerns about this patient potentially having Parkinson's disease. She has very flat affect, intentional tremor, wide- based gait. I asked that she and her son see her physician next week and ask about the potential as Parkinson's being a diagnosis. I explained to her wasn't necessarily saying that I was convinced that she had it, but that I was suspicious and I wanted a medical provider that maneuver better to do an evaluation of her. She'll go home, increase fluids and rest tonight. Continue with antibiotics. ROSAURA HAMPTON MD Jun 27, 2016 16:08
[2016-06-27 16:09] LABS: BASOPHILS # (AUTO) 0.1 T/MM3 (0-0.2); BASOPHILS % (AUTO) 0.5 % (0-2); EOSINOPHILS # (AUTO) 0.1 T/MM3 (0-0.5); EOSINOPHILS % (AUTO) 1.2 % (0-4); HCT - HEMATOCRIT 40.3 % (36-46); HGB - HEMOGLOBIN 13.5 GM/DL (12-16); IMMATURE GRANULOCYTE # (AUTO) 0.03 T/MM3 (0.00-0.03); IMMATURE GRANULOCYTE % (AUTO) 0.3 % (0.0-0.5); LYMPHOCYTES # (AUTO) 3.2 T/MM3 (1-4.8); LYMPHOCYTES % (AUTO) 32.2 % (23-45); MEAN CORPUSCULAR HGB 29.4 UUG (26-34); MEAN CORPUSCULAR HGB CONC(MCHC 33.5 GM/DL (31-37); MEAN CORPUSCULAR VOLUME 87.8 UM3 (80-100); MEAN PLATELET VOLUME 9.4 UM3 (9.4-12.4); MONOCYTES # (AUTO) 0.9 T/MM3 (0-0.8); MONOCYTES % (AUTO) 9.1 % (0-9.0); NEUTROPHILS #(AUTO)-ABSOLUTE 5.6 T/MM3 (1.8-7.7); NEUTROPHILS % (AUTO) 56.7 % (33-66); RED BLOOD COUNT 4.59 M/MM3 (4.00-5.20); WBC - WHITE BLOOD COUNT 9.9 T/MM3 (4.5-11.0)
[2016-06-27 16:10] LABS: BACTERIA,URINE TRACE (NEGATIVE); RBC,URINE 0-1 /HPF (0-3); SQUAMOUS EPITHELIAL CELL,UR 0-5; WBC,URINE 0-1 /HPF (0-5)
[2016-06-27 16:13] LABS: ALBUMIN 4.4 G/DL (3.5-5.0); ALBUMIN/GLOBULIN RATIO 1.4 RATIO (1.1-2.2); ALKALINE PHOSPHATASE 76 U/L (38-126); ALT (SGPT) 36 U/L (9-52); ANION GAP 14 MEQ/L (5-15); AST (SGOT) 23 U/L (14-36); BUN/CREATININE RATIO 17 RATIO (6-26); CHLORIDE 101 MEQ/L (98-107); CO2 - CARBON DIOXIDE 25 MEQ/L (22-30); CREATININE 1.2 MG/DL (0.7-1.2); GLOMERULAR FILTRATION RATE 44; GLUCOSE 216 MG/DL (65-110); POTASSIUM 4.3 MEQ/L (3.6-5); SODIUM 140 MEQ/L (134-144); TOTAL PROTEIN 7.5 G/DL (6.3-8.2)
--- NOTE | 2016-06-27 16:14 | DI ---
INDICATION: ITS.REASON: weakness PROCEDURE: CHEST 2-VIEWS UPRIGHT (PA \T\ LAT) Encounter: Initial Comparison: November 09, 2015 Findings: The lungs are stable in appearance without new focal airspace consolidation. There is no pleural effusion or pneumothorax. The heart size, pulmonary vascularity and mediastinal contours are unchanged. Prior CABG. IMPRESSION: Stable appearance of the chest without acute cardiopulmonary disease. .
[2016-06-27 16:26] LABS: ACETAMINOPHEN < 10 UG/ML (10-30); SALICYLATE < 1.0 MG/DL (2-20)
--- NOTE | 2016-06-27 17:15 | NUR ---
ELIMINATION ASSISTED PT. UP TO THE COMMODE TO URINATE.
[2016-06-27 17:52] VITALS: TEMP 98.3
[2016-06-27 18:00] VITALS: BP 136/65; PULSE 65; RESP 17; O2SAT 98
== END 2016-06-27 18:26 | disposition home or self-care (01) ==
LOC: ED 14:27
DX: R25.1 Tremor, unspecified (principal); R53.83 Other fatigue; N39.0 Urinary tract infection, site not specified
CPT/HCPCS: 36415; 71020; 80053; 80307; 81001; 84443; 85025; 96360; 99284; J7030

== ENCOUNTER 2016-11-23 09:34 | Observation (INO) ==
[2016-11-23] MEDS ORDERED: SALINE FLUSH 10ml SYRINGE IVF PRN (09:43)
--- NOTE | 2016-11-23 09:45 | Emergency Department Report ---
General Adult HPI - General Stated complaint: fall Time Seen by Provider: 11/23/16 09:42 Source: patient Mode of arrival: EMS Limitations: no limitations - History of Present Illness HPI narrative: 76-year-old female presents to the emergency Department following a mechanical fall. Patient was on her porch watering her amaya when she leaned over and lost her balance and fell. Patient denies loss of consciousness but does note striking her head on a plow sculpture which is below her porch. Patient believes she may have also hit her abdomen which she has noted a bruise on the anterior surface of the abdomen. Pain is moderate. Pain is dull. No radiation. Patient was at home when her symptoms began at approximately 0855 this morning when she fell. Immediately following the fall, the patient was able to push her life alert. No other injuries. No other complaints or associated symptoms. - Related Data Home Medications Medication Instructions Recorded Confirmed Spironolactone [Aldactone] 25 mg PO DAILY #0 08/29/08 11/23/16 Citalopram Hydrobromide 10 mg PO DAILY #0 11/09/15 11/23/16 [Citalopram HBr] Losartan Potassium 100 mg PO DAILY #0 11/09/15 11/23/16 glipizide 5 mg tablet 5 mg PO BID 90 Days #180 tab 09/08/16 11/23/16 Tresiba FlexTouch U-100 (insulin 36 unit SQ HS ml 09/18/16 11/23/16 degludec) 100 unit/mL (3 mL) PEN Acetaminophen 1,000 mg PO HS 11/23/16 11/23/16 Aspirin [Jacki Chewable Aspirin] 81 mg PO DAILY 11/23/16 11/23/16 Atorvastatin [Lipitor] 40 mg PO HS 11/23/16 11/23/16 Cholecalciferol (Vitamin D3) 1,000 unit PO DAILY 11/23/16 11/23/16 [Vitamin D3] Metoprolol Tartrate [Lopressor] 50 mg PO BID 11/23/16 11/23/16 Nitroglycerin 0.4 mg SL Q5M PRN 11/23/16 11/23/16 Potassium 99 mg PO DAILY 11/23/16 11/23/16 Previous Rx's Medication Instructions Recorded carbidopa 25 mg-levodopa 100 mg 1 tab PO TID #90 tab 09/18/16 tablet Allergies Allergy/AdvReac Type Severity Reaction Status Date / Time No Known Drug Allergies Allergy Unknown Verified 11/23/16 10:07 Review of Systems Constitutional: Denies: fever, chills Eyes: Denies: eye pain, vision change ENT: Denies: ear pain, throat pain Cardiovascular: Denies: chest pain, palpitations Respiratory: Denies: cough, dyspnea Gastrointestinal: Reports: abdominal pain. Denies: nausea, vomiting, diarrhea Genitourinary: Denies: urgency, dysuria Musculoskeletal: Denies: back pain, arthralgia Integumentary: Denies: erythema, rash Neurological: Reports: headache. Denies: numbness Psychiatric: Denies: anxiety, depression Endocrine: Denies: fatigue, heat or cold intolerance Hematological/Lymphatic: Denies: easy bleeding, easy bruising Allergic/Immunologic: Denies: facial swelling, urticaria PFSH Patient Stated Medical History Parkinson's Disease Yes Hypertension Yes Myocardial Infarction Yes Bronchitis Yes Diabetes Mellitus Type 2 Yes Other GI Yes: CONSTIPATION AND DIARRHEA Hx Urinary Tract Infection Yes Osteoarthritis Yes Clinic Medical History Acute arthritis (Acute Medical) Cancer of face (Acute Medical) Diabetes (Acute Medical) HTN (hypertension) (Acute Medical) Heart disease (Acute Medical) Parathyroid abnormality (Acute Medical) Surgical History: Parathyroidectomy 09/2014. Cystoscopy 05/2014. Bypass graft x2 10/2005. Oophorectomy 1983. Colonoscopy. Hysterectomy 1981 Family History: Family History Mother Breast cancer Father Coronary artery disease High blood pressure Sister Coronary artery disease High blood pressure Diabetes - Social History Smoking status: Never smoker Substance use type: does not use Alcohol intake frequency: does not drink Physical Exam - Limitations Limitations: no limitations - General General appearance: alert, in no apparent distress - Normal Exams: Head:: Normocephalic without trauma (no raccoon eyes, Miller sign, hemotympanum or CSF leak. The midface is stable. No malocclusion of the jaw. 2 cm laceration to the left supraorbital region. Linear. Clean. No active bleeding. No tendon involvement. Distal neurovascular intact. No foreign body.) Eyes:: Pupils are PERRLA w/ EOMI, No scleral icterus, irritation, or foreign bodies noted ENMT:: No facial trauma, nasal exudates, pharyngeal erythema, or exudates are noted Dental: No fractured, loose, or missing teeth noted Neck:: Full range of motion, without adenopathy, JVD, bruits or thyromegaly (no midline tenderness or deformity to palpation of the cervical spine. Generalized neck tenderness.) Chest/Respirations:: Clear all orellana, with good airflow, and symmetry bilaterally Cardiovascular:: Regular rate and rhythm, without murmur or gallop, Pulses 2+ all extremities, capillary refill, <2 seconds all extremities Abdomen:: Bowel sounds positive, non-distended, no hepatosplenomegaly, masses or bruits noted (soft. Mildly tender to palpation diffusely. Positive ecchymosis noted over anterior abdomen. No rebound or guarding. No CVA tenderness.) Lymphatic:: No lymphadenopathy, or lymphedema noted Musculoskeletal:: No tenderness (pelvis stable to compression and nontender. No midline tenderness or deformity to the thoracic/lumbar spine.), or deformity noted (right pinky finger - full range of motion. Generalized tenderness to palpation. Skin is intact. Pulses intact. Sensation intact. Capillary refill less than 2. No focal bony tenderness. Skin is intact. All other extremities are unremarkable. No other tenderness in the right upper extremity. ), good range of motion, all extremities Integumentary:: No rashes, hives, or bruising noted, hair and nails, without abnormality Neurological:: Patient is alert, and oriented, cranial nerves, motor/sensory/ cerebellar, exams w/o gross deficits, to observation Psychiatric:: Patient exhibits, appropriate attention, emotion and affect Course Vital Signs Pulse Rate 74 11/23/16 09:50 Respiratory Rate 29 H 11/23/16 09:50 Pulse Oximetry 96 11/23/16 09:50 Pulse Rate 65 11/23/16 11:46 Respiratory Rate 24 11/23/16 11:46 Blood Pressure 135/62 11/23/16 11:46 Pulse Oximetry 96 11/23/16 10:14 Procedures - Laceration Laceration 1 Site: face Side (If applicable): left Size (cm): 2 Description: linear Depth: simple, single layer Local Anesthetic: lidocaine 1% Amount of anesthesia used (mL): 5 Pre-repair: wound explored, irrigated extensively, deep structures intact Skin layer closed with: nylon Size (cm): 5-0 Number of sutures: 6 Technique: simple, interrupted Medical Decision Making - MDM Narrative Medical decision making narrative: Labs / imaging were discussed in detail with the patient and family and questions are answered. Patient is placed in a metal foam finger splint with good alignment to the right 5th finger by RN. Patient is distal neurovascular intact post-application of splint. Patient declines offered analgesic pain medication in the emergency department. Patient is discussed with the hospitalist Dr. Joseph and will be admitted to his service for further evaluation and treatment as the patient is slightly fuzzy regarding the details of her closed head injury after striking her head. She will be observed as she is at risk for delayed bleeding. Patient and family are in agreement with the current plan of management. Patient is admitted to the hospital in improved condition. No further orders from accepting physician is in agreement with the current plan of management. Sutures are to remain in place for 5 days. Tetanus status was updated in the ED. patient is admitted to the hospital in improved condition. Temperature: 97.6 F - Differential Diagnosis laceration, contusion, closed head injury, fracture - Lab Data Result diagrams: 11/23/16 09:41 11/23/16 09:41 Lab Results 11/23/16 11/23/16 Range/Units 09:41 09:41 WBC 9.7 (4.5-11.0) T/MM3 RBC 4.51 (4.00-5.20) M/MM3 Hgb 13.0 (12-16) GM/DL Hct 40.3 (36-46) % MCV 89.4 (80-100) UM3 MCH 28.8 (26-34) UUG MCHC 32.3 (31-37) GM/DL RDW Std Deviation 38.7 (36.9-50.2) FL Plt Count 280 (130-400) T/MM3 MPV 9.6 (9.4-12.4) UM3 Immature Gran % (Auto) 0.4 (0.0-0.5) % Neut % (Auto) 38.8 (33-66) % Lymph % (Auto) 47.3 H (23-45) % Cotton % (Auto) 11.2 H (0-9.0) % Eos % (Auto) 1.7 (0-4) % Baso % (Auto) 0.6 (0-2) % Neut # 3.8 (1.8-7.7) T/MM3 Lymph # 4.6 (1-4.8) T/MM3 Cotton # 1.1 H (0-0.8) T/MM3 Eos # 0.2 (0-0.5) T/MM3 Baso # 0.1 (0-0.2) T/MM3 Abs Immat Gran (auto) 0.04 H (0.00-0.03) T/MM3 Turbidity < 20 (0-20) Sodium 141 (134-144) MEQ/L Potassium 4.3 (3.6-5) MEQ/L Chloride 101 (98-107) MEQ/L Carbon Dioxide 28 (22-30) MEQ/L Anion Gap 12 (5-15) MEQ/L BUN 15.0 (7-17) MG/DL Creatinine 0.9 (0.7-1.2) MG/DL GFR Calculation 61 BUN/Creatinine Ratio 17 (6-26) RATIO Glucose 168 H (65-110) MG/DL Calculated Osmolality 276 (261-280) MOSM/KG Calcium 9.6 (8.4-10.2) MG/DL Total Bilirubin 0.70 (0.20-1.30) MG/DL Icterus Index < 2 (0-7) AST 23 (14-36) U/L ALT 32 (9-52) U/L Alkaline Phosphatase 78 (38-126) U/L Total Protein 7.6 (6.3-8.2) G/DL Albumin 4.4 (3.5-5.0) G/DL Globulin 3.2 (2.4-3.6) G/DL Albumin/Globulin Ratio 1.4 (1.1-2.2) RATIO Lipase 109 (23-300) U/L Specimen Hemolysis < 15 (0-25) - Radiology Data CT head: No acute processes. CT cervical spine: Negative. CT abdomen pelvis: No acute processes. Right hand x-ray: Closed nondisplaced Fracture of 5th finger. Disposition Clinical Impression: Laceration Closed head injury Qualifiers: Encounter type: initial encounter Qualified Code(s): S09.90XA - Unspecified injury of head, initial encounter Blunt abdominal trauma Qualifiers: Encounter type: initial encounter Qualified Code(s): S39.81XA - Other specified injuries of abdomen, initial encounter [facility]position: [facility] Condition: Stable Time of Disposition: 10:55 (Admit. Dr. Joseph. ) - Seen By: physician
--- OUTSIDE RECORDS SUMMARY | 2016-11-23 09:52 | External Medical Summary | Continuity of Care Document ---
:1940 Author Organization [facility] Support Name Relationship Address Phone SUZETTE TATUM MD Unavailable [address] [place] [address] [place] [address] ROBERTO WAKEFIELD MD Unavailable [address] [place] [address] [place] [address] PAT BEATTY Unavailable [address] [place] [address] Insurance Providers Payer Name Policy Number Subscriber Name Relationship Medicareadvantra Ppo [id number] [place] Beatty 18 Self Advance Directives Directive Response Recorded Date/Time Ordered Resuscitation Status Full Code, unverified 06/06/14 8:44am Resuscitation Documents on File No 06/05/14 2:35pm Problems No known problems or medical conditions. Medications Medication Dose Route Sig Days/Qty Instructions Order Discontinued Status Date Date Spironolactone 25 Mg PO DAILY 08/29/ Active 09 Aspirin 81 Mg PO DAILY 08/29/ Active 09 Insulin Glargine 30 SQ BEDTIME 08/29/ Active Unit 09 Furosemide 20 Mg PO DAILY 08/29/ Active 09 Metoprolol 50 Mg PO DAILY 08/29/ Active Tartrate 09 Pioglitazone HCl 1 Tab PO DAILY 30 Qty 02/28/ Active 14 Losartan/Hydrochl 1 Tab PO DAILY 02/28/ Active orothiazide 14 Cholecalciferol 1 Tab PO DAILY 02/28/ Active (Vitamin D3) 14 Potassium 595 DAILY 03/01/ Active Gluconate 14 Social History Social History Problem Response Recorded [...] F (96.8 - 99.1) Temperature (Calculated Celsius) 36.41807 degrees C (36.0 - 37.3) Temperature Source [...] Result Interp. Ref. Range Comments Activated Partial August 29, 23.0 SEC L 25-36 Thromboplast Time 2008 6:55pm Alanine August 29 27 U/L N 9-52 Aminotransferase 2008 (ALT/SGPT) 6:55pm Albumin August 29, 4.34 G/DL N 3.5-5.0 2008 6:55pm Albumin/Globulin Ratio August 29, 1.4 RATIO N 1.1-2.2 2008 6:55pm Alkaline Phosphatase August 29, 89 U/L N 38-126 2008 6:55pm Anion Gap June 07, 12 MEQ/L N 5-15 COMMENT SCU 2015 WILL CALL 8:13am Aspartate Amino Transf August 29, 25 U/L N 14-36 (AST/SGOT) 2008 6:55pm B-Type Natriuretic August 29, 116 PG/ML H 15-100 Peptide 2008 6:55pm BUN/Creatinine Ratio June 07 20 RATIO N 6-26 COMMENT SCU 2015 WILL CALL 8:13am Band Neutrophils # August 29, 0.2 T/MM3 - 2008 6:55pm Band Neutrophils % August 29, 2.0 % N 0-6 2008 6:55pm Basophils # (Auto) June 07, 0.0 T/MM3 N 0-0.2 2014 8:13am Basophils (%) (Auto) June 07, 0.5 % N 0-2 2014 8:13am Blood Urea Nitrogen June 07, 16.0 MG/DL N 7-17 COMMENT SCU 2014 WILL CALL 8:13am Calcium Level June 07, 10.4 MG/DL H 8.4-10.2 COMMENT SCU 2015 WILL CALL 8:13am Calculated Osmolality June 07, 276 MOSM/KG N 261-280 COMMENT SCU 2015 WILL CALL 8:13am Carbon Dioxide Level June 07, 25 MEQ/L N 22-30 COMMENT SCU 2015 WILL CALL 8:13am Chemistry Specimen June 07, < 15 0-25 0-25: No Hemolysis.26-70: Slight Hemolysis - can falsely elevate K and Urine Hemolysis 2015 Protein. 8:13am 71-285: Moderate Hemolysis - can falsely elevate K, Troponin I, CA 19-9, PTH, CSF GLucose, and Urine Protein, and can falsely decrease Phenytoin. 286-999: Gross Hemolysis - can falsely elevate K, Troponin I, CA 19-9, PTH, CSF Glucose, and Urine Protine, and can falsely decrease Phenytoin. Recommend specimen recollection. Chloride Level June 07, 106 MEQ/L N 98-107 COMMENT SCU 2015 WILL CALL 8:13am Creatinine June 07, 0.8 MG/DL N 0.7-1.2 COMMENT SCU 2015 WILL CALL 8:13am Differential Total August 29, 100 % - Cells Counted 2008 6:55pm EKG August 30, Complete - 2008 6:20am Eosinophils # (Auto) June 07, 0.1 T/MM3 N 0-0.5 2014 8:13am Eosinophils # (Manual) August 29, 0.1 T/MM3 N 0-0.5 2008 6:55pm Eosinophils % (Manual) August 29, 1.0 % N 0-4 2008 6:55pm Eosinophils (%) (Auto) June 07, 2.2 % N 0-4 2014 8:13am Globulin August 29, 3.0 G/DL N 2.4-3.6 2008 6:55pm Glomerular Filtration June 07, - COMMENT SCU Rate Calc 2014 WILL CALL 8:13am Glucometer June 07, 86 mg/dL N 65-110 2014 10:34am Glucose Level June 07, 96 MG/DL N 65-110 COMMENT SCU 2015 WILL CALL 8:13am Hematocrit June 07, 37.0 % N 36-46 2014 8:13am Hemoglobin June 07, 12.0 GM/DL N 12-16 2014 8:13am Icterus Index June 07, < 2 0-7 COMMENT SCU 2015 WILL CALL 8:13am Immature Granulocyte # June 07, 0.01 T/MM3 N 0.00-0.03 (Auto) 2014 8:13am Immature Granulocyte % June 07, 0.2 % N 0.0-0.5 (Auto) 2014 8:13am Lab Scanned Report May 04, LAB TEST FORM - 2015 REQUEST 7:49pm Lymphocytes # (Auto) June 07, 2.7 T/MM3 N 1-4.8 2014 8:13am Lymphocytes # (Manual) August 29, 4.4 T/MM3 N 1-4.8 2008 6:55pm Lymphocytes % (Manual) August 29, 41.0 % N 23-45 2008 6:55pm Lymphocytes (%) (Auto) June 07, 41.8 % N 23-45 2014 8:13am Mean Corpuscular June 07, 30.4 UUG N 26-34 Hemoglobin 2014 8:13am Mean Corpuscular June 07, 32.4 GM/DL N 31-37 Hemoglobin Concent 2014 8:13am Mean Corpuscular June 07, 93.7 UM3 N 80-100 Volume 2014 8:13am Mean Platelet Volume June 07, 9.3 UM3 L 9.4-12.4 2014 8:13am Monocytes # (Auto) June 07, 0.8 T/MM3 N 0-0.8 2014 8:13am Monocytes # (Manual) August 29, 0.8 T/MM3 N 0-0.8 2008 6:55pm Monocytes % (Manual) August 29, 7.0 % N 0-9.0 2008 6:55pm Monocytes (%) (Auto) June 07, 12.4 % H 0-9.0 2014 8:13am UU-Yiw-O-Type May 04, 582 PG/ML H 0-175 Rule in cut points: <50 years old=450; Natriuretic Peptide 2014 50-75 years old=900; 10:10am >75 years old=1800; When utilizing ProBNP rule-in cut points, adjustment for impaired renal function is typically not required. Neutrophils # (Auto) June 07, 2.8 T/MM3 N 1.8-7.7 2014 8:13am Neutrophils # (Manual) August 29, 5.3 T/MM3 N 1.8-7.7 2008 6:55pm Neutrophils % (Manual) August 29, 49.0 % N 33-66 2008 6:55pm Neutrophils (%) (Auto) June 07, 42.9 % N 33-66 2014 8:13am Platelet Count June 07, 231 T/MM3 N 306-253 5590 8:13am Potassium Level June 07, 4.4 MEQ/L N 3.6-5 COMMENT SCU 2014 WILL CALL 8:13am Prothromb Time August 29, 0.76 L 0.79-1.23 THERAPUTIC International Ratio 2008 RANGE=2.00-3.00 6:55pm FOR ANTI-THROMBOSIS THERAPUTIC RANGE=2.50-3.50 FOR IMPLANTED VALVE RDW Standard Deviation June 07, 39.8 FL N 36.9-50.2 2014 8:13am Red Blood Count June 07, 3.95 M/MM3 L 4.00-5.20 2014 8:13am Sodium Level June 07, 143 MEQ/L N 134-144 COMMENT SCU 2014 WILL CALL 8:13am Total Bilirubin August 29, 0.27 MG/DL N 0.20-1.30 2008 6:55pm Total Protein August 29, 7.3 G/DL N 6.3-8.2 2008 6:55pm Troponin I August 30, 0.010 ng/ml N 0-0.12 2008 5:30am Turbidity June 07, < 20 0-20 COMMENT SCU 2014 WILL CALL 8:13am White Blood Count June 07, 6.4 T/MM3 N 4.5-11.0 2014 8:13am Procedures Procedure Status Date Provider(s) ROUTINE VENIPUNCTURE completed 04/17/14 ENDOSCOPIC INJECTION/IMPLANT completed 04/17/14 SUZETTE TATUM MD METABOLIC PANEL TOTAL CA completed 04/17/14 COMPLETE CBC W/AUTO DIFF WBC completed 04/17/14 [id number] ITEM OR SERVICE completed 04/17/14 [id number] ITEM OR SERVICE completed 04/17/14 PROPOFOL INJ 500 MG/50ML completed 04/17/14 [id number]"RINGERS LACTATE INFUSION, UP TO completed 04/17/14 1000 CC" [id number] SHIPPING AND NECESSARY completed 04/17/14 SUPPLIES ASSAY OF NATRIURETIC PEPTIDE completed 05/04/14 Cystoscopy with injection of Coaptite implant completed 06/07/14 SUZETTE TATUM MD Encounters Encounter Location Date/Time Registered Clinic [facility] 05/04/14 10:19am
--- OUTSIDE RECORDS SUMMARY | 2016-11-23 09:52 | External Medical Summary | Referral Summary ---
:1940 Author Organization [facility] Address [address] [place] [address] Care Team Providers Name Role Phone Vipul Jaimes Primary Care Physician Encounter [facility] [id number] Date(s): 10/24/14 - 10/24/14 [facility] [address] [place] [address]- [place] Discharge Diagnosis: Dysphagia Discharge Diagnosis: Postoperative follow-up Discharge Disposition: -Home or Self Care Attending Physician: Natanael Yadav MD Admitting Physician: Natanael Yadav MD Vital Signs No data available for this section Problem List Condition Effective Dates Status Health Status Informant Arthritis(Confirmed)1 Active patient Benign essential Active hypertension(Confirmed)2 Hypertensive Active cardiomyopathy(Confirmed)3 Coronary atherosclerosis unspec Active vessel(Confirmed)4 DDD(Confirmed)5 Active Depressive disorder, 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 Active classified(Confirmed) Diabetes w/o complication type Active II(Confirmed)6 longterm current use of Active insulin(Confirmed) Bilateral carotid artery Active disease(Confirmed)7 HNP(Confirmed)8 Active Hypercalcemia(Confirmed) Active Hyperparathyroidism(Confirmed) Active Low back pain(Confirmed)9 Active Lumbar spondylosis(Confirmed)10 Active Mixed hyperlipidemia(Confirmed)11 Active Morbid obesity(Confirmed) Active patient Overweight(Confirmed) Active Post-surgical Active hypothyroidism(Confirmed) Pure hypercholesterolemia(Confirmed)12 Active Sleep apnea(Confirmed) Active patient Diabetes type 2, Active uncontrolled(Confirmed) Vitamin D deficiency(Confirmed) Active [id number] conversion document.3mild concentrical VH, mild pulmo. ECHO 06/12/08. See conversion document.4See conversion document.5See conversion document.6See conversion document.7Rt > Lft. See conversion document.8See conversion document.9See conversion document.10foraminal narrowing L5-S1. See conversion document.11See conversion document.12See conversion document. Allergies, Adverse Reactions, Alerts No Known Medication Allergies Medications acetaminophen 650 mg, Oral, QID, 0 Refill(s) Start Date: 04/24/15 Status: OrderedEcotrin mg, Oral, Daily, 0 Refill(s) Start Date: 04/25/15 Status: OrderedJanuvia 50 mg oral tablet See Instructions, TAKE ONE TABLET BY MOUTH ONCE DAILY, # 30 tabs, 5 Refill(s), eRx: [place] [id number], TAKE ONE TABLET BY MOUTH ONCE DAILY Start Date: 03/08/15 Status: OrderedLasix 20 mg oral tablet 20 mg 1 tabs, Oral, Daily, # 30 tabs, 0 Refill(s), Pharmacy: [facility] # [id number], 1 tabs Oral Daily Start Date: 04/25/15 Status: OrderedLevemir FlexPen 100 units/mL subcutaneous solution 32 units, SubCutaneous, Bedtime (once a day), 32 units at bedtime, # 2 boxes, 6 Refill(s), Pharmacy:[facility] #[id number], 32 units SubCutaneous Bedtime ( once a day),Instr:32 units at bedtime Start Date: 03/21/15 Status: Orderedlosartan 100 mg oral tablet See Instructions, TAKE ONE TABLET BY MOUTH ONCE DAILY, # 30 tabs, 5 Refill(s), eRx: [place] [id number], TAKE ONE TABLET BY MOUTH ONCE DAILY Start Date: 03/08/15 Status: OrderedMetoprolol Succinate ER 50 mg oral tablet, extended release See Instructions, TAKE ONE TABLET BY MOUTH ONCE DAILY, # 60 tabs, 0 Refill(s), Pharmacy: [place] [id number] Start Date: 03/08/15 Status: OrderedMiraLax 17 g, Oral, Daily, 0 Refill(s) Start Date: 04/24/15 Status: OrderedMiscellaneous DME DME Item One Touch Ultra blue test strip. To test in am and evening and prn Diag - E11.65, See Instructions, # 50 Each, 1 Refill(s), Pharmacy: [place] [id number], One Touch Ultra blue test strip.To test in am and evening and prn ; Diag - E11.65,... Start Date: 03/08/15 Status: OrderedMiscellaneous DME DME Item One Touch Ultra 2 Glucose Test Strips Test once am & once pm DX - 250.00, See Instructions, # 100 Each, 0 Refill(s), Pharmacy: [id number], One Touch Ultra 2 Glucose Test Strips; Test once am & once pm ; DX - 250.00, Supply Start Date: 06/27/14 Status: Orderedomeprazole 20 mg oral delayed release tablet 20 mg 1 tabs, Oral, Daily, # 30 tabs, 3 Refill(s), Pharmacy: [facility] # [id number], 1 tabs Oral Daily,x30 days Start Date: 05/03/15 Stop Date: 08/31/15 Status: Orderedpotassium gluconate 595 mg oral tablet 1 tabs, Oral, Daily, # 100 tabs, 0 Refill(s) Start Date: 02/01/14 Status: OrderedRoxicodone 5 mg oral tablet 1-3 tabs, Oral, q3hr, as needed for pain, 0 Refill(s) Start Date: 04/24/15 Status: Orderedspironolactone 25 mg oral tablet See Instructions, TAKE ONE TABLET BY MOUTH ONCE DAILY, # 90 tabs, 0 Refill(s), Pharmacy: [facility] #[id number], TAKE ONE TABLET BY MOUTH ONCE DAILY Start Date: 04/06/15 Status: OrderedtraMADol 50 mg oral tablet 1-2 tabs, Oral, q4hr, as needed for pain, 0 Refill(s) Start Date: 04/24/15 Status: OrderedVitamin D3 2000 intl units oral tablet tabs, Oral, Daily, 0 Refill(s) Start Date: 02/01/14 Status: OrderedZofran 4 mg oral tablet 4 mg 1 tabs, Oral, q6hr, Nausea or Vomiting, # 30 tabs, 0 Refill(s), Pharmacy: [facility] #[id number], 1 tabs Oral q6hr,PRN:Nausea or Vomiting Start Date: 04/25/15 Stop Date: 05/24/15 Status: Ordered Results No data available for this section Immunizations Vaccine Date Refusal Reason influenza virus vaccine, inactivated 02/13/14 pneumococcal 13-valent conjugate vaccine 01/31/15 tetanus-diphth toxoids (Td) adult/adol 09/24/99 Procedures Procedure Date Related Diagnosis Body Site Laryngoscopy, flexible fiberoptic; diagnostic 10/24/14 Laryngoscopy, flexible fiberoptic; diagnostic 10/24/14 Laryngoscopy, flexible fiberoptic; diagnostic 10/24/14 Parathyroidectomy or exploration of 10/16/14 parathyroid(s);.. Cystoscopy1 06/07/14 Surgery2 04/17/14 CABG x 23 10/2005 Oophorectomy4 1983 Hysterectomy1981 Bladder6 Colonoscopy abnormal7 1Third Coaptite suburethral bulking implant.2Coaptite suburethral bulking implant.3Dr. Merced. See conversion document.4She had surgery for ovarian cyst. She reports she has one ovary remaining.5without SO. See conversion document.63 bladder [id number] polyp Social History Social History Type Response Smoking Status Never smoker Assessment and Plan Extracted from: Title: Office Visit Note Author: Natanael Yadav MD Date: 10/24/14 Assessment/Plan 1.Dysphagia Mild muscular dysphagia which is resolving nicely. Ordered: Laryngoscopy, Flexible Fiberoptic; Diagnostic 23733 Postoperative Est [id number] 2.Postoperative follow-up Patient is doing very well postoperative hyper parathyroid resection. She will follow-up with Dr. Baptiste.
--- OUTSIDE RECORDS SUMMARY | 2016-11-23 09:53 | External Medical Summary | Referral Summary ---
:1940 Author Organization [facility] Address [address] [place] [address] Care Team Providers Name Role Phone Vipul Jaimes Primary Care Physician Encounter VC Date(s): 10/16/14 - 10/16/14 [facility] [address] [place] [address]- [place] Discharge Diagnosis: Hyperparathyroidism Discharge Diagnosis: Hyperparathyroidism Discharge Disposition: 01-Home or Self Care Attending Physician: Natanael Yadav MD Admitting Physician: Natanael Yadav MD Vital Signs Most recent to oldest [Reference Range]: 1 Temperature Temporal Artery [36.3-37.8 degC] 36.0 degC *LOW* (10/16/14 6:42 AM) Peripheral Pulse Rate [60-100 bpm] 60 bpm (10/16/14 6:42 AM) Respiratory Rate [14-20 br/min] 16 br/min (10/16/14 6:42 AM) Blood Pressure [90-140/60-90 mmHg] 160/81 mmHg *HI* (10/16/14 6:42 AM) SpO2 93 % (10/16/14 6:42 AM) Problem List Condition Effective Dates Status Health Status Informant Arthritis(Confirmed)1 Active patient Benign essential Active hypertension(Confirmed)2 Hypertensive Active cardiomyopathy(Confirmed)3 Coronary atherosclerosis unspec Active vessel(Confirmed)4 DDD(Confirmed)5 Active Depressive disorder, 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 Active classified(Confirmed) Diabetes w/o complication type Active II(Confirmed)6 [facility] current use of Active insulin(Confirmed) Bilateral carotid artery Active disease(Confirmed)7 HNP(Confirmed)8 Active Hypercalcemia(Confirmed) Active Hyperparathyroidism(Confirmed) Active Low back pain(Confirmed)9 Active Lumbar spondylosis(Confirmed)10 Active Mixed hyperlipidemia(Confirmed)11 Active Morbid obesity(Confirmed) Active patient Overweight(Confirmed) Active Post-surgical Active hypothyroidism(Confirmed) Pure hypercholesterolemia(Confirmed)12 Active Sleep apnea(Confirmed) Active patient Diabetes type 2, Active uncontrolled(Confirmed) Vitamin D deficiency(Confirmed) Active [id number] conversion document.3mild concentrical VH, mild pulmo. ECHO [...] DAILY, # 30 tabs, 5 Refill(s), eRx: [facility], TAKE ONE TABLET BY MOUTH ONCE DAILY Start Date: 03/08/15 Status: OrderedLasix 20 mg oral tablet 20 mg 1 tabs, Oral, Daily, # 30 tabs, 0 Refill(s), Pharmacy: [facility] # [id number], 1 tabs Oral Daily Start Date: 04/25/15 Status: OrderedLevemir FlexPen 100 units/mL subcutaneous solution 32 units, SubCutaneous, Bedtime (once a day), 32 units at bedtime, # 2 boxes, 6 Refill(s), Pharmacy:[facility] #[id number], 32 units SubCutaneous Bedtime ( once a day),Instr:32 units at bedtime Start Date: 03/21/15 Status: Orderedlosartan 100 mg oral tablet See Instructions, TAKE ONE TABLET BY MOUTH ONCE DAILY, # 30 tabs, 5 Refill(s), eRx: [facility], TAKE ONE TABLET BY MOUTH ONCE DAILY Start Date: 03/08/15 Status: OrderedMetoprolol Succinate ER 50 mg oral tablet, extended release See Instructions, TAKE ONE TABLET BY MOUTH ONCE DAILY, # 60 tabs, 0 Refill(s), Pharmacy: [facility] 2428 Start Date: 03/08/15 Status: OrderedMiraLax 17 g, Oral, Daily, 0 Refill(s) Start Date: 04/24/15 Status: OrderedMiscellaneous DME DME Item One Touch Ultra blue test strip. To test in am and evening and prn Diag - E11.65, See Instructions, # 50 Each, 1 Refill(s), Pharmacy: [facility] 242, One Touch Ultra blue test strip.To test in am and evening and prn ; Diag - E11.65,... Start Date: 03/08/15 Status: OrderedMiscellaneous DME DME Item One Touch Ultra 2 Glucose Test Strips Test once am & once pm DX - 250.00, See Instructions, # 100 Each, 0 Refill(s), Pharmacy: [facility] 2428, One Touch Ultra 2 Glucose Test Strips; Test once am & once pm ; DX - 250.00, Supply Start Date: 06/27/14 Status: Orderedpotassium gluconate 595 mg oral tablet 1 tabs, Oral, Daily, # 100 tabs, 0 Refill(s) Start Date: 02/01/14 Status: OrderedRoxicodone 5 mg oral tablet 1-3 tabs, Oral, q3hr, as needed for pain, 0 Refill(s) Start Date: 04/24/15 Status: Orderedspironolactone 25 mg oral tablet See Instructions, TAKE ONE TABLET BY MOUTH ONCE DAILY, # 90 tabs, 0 Refill(s), Pharmacy: [facility] #[id number], TAKE ONE TABLET BY MOUTH ONCE DAILY [...] Vomiting, # 30 tabs, 0 Refill(s), Pharmacy: [facility] #[id number], 1 tabs Oral q6hr,PRN:Nausea or Vomiting Start Date: 04/25/15 Stop Date: 05/24/15 Status: Ordered Results Chemistry Most recent to oldest [Reference Range]: 1 Surg. Parathyroid Hormone [11-67 pg/mL] 14 pg/mL (10/16/14 8:28 AM) Potassium Venous [3.5-5.1 mEq/L] 4.1 mEq/L 1 (10/16/14 6:55 AM) 1Result Comment: This test was performed on a whole blood specimen. The presence or absence of hemolysis cannot be assessed. Hemolysis can falsely elevate potassium levels. Normals are for venous specimens only. Immunizations Vaccine Date Refusal Reason influenza virus vaccine, inactivated 02/13/14 pneumococcal 13-valent conjugate vaccine 01/31/15 tetanus-diphth toxoids (Td) adult/adol 09/24/99 Procedures Procedure Date Related Diagnosis Body Site Collection of venous blood by venipuncture 10/16/14 Collection of venous blood by venipuncture 10/16/14 Parathyroidectomy or exploration of 10/16/14 parathyroid(s); Parathyroidectomy or exploration of 10/16/14 parathyroid(s); Parathyroidectomy or exploration of 10/16/14 parathyroid(s); Parathyroidectomy or exploration of 10/16/14 parathyroid(s);.. Parathyroidectomy or exploration of 10/16/14 parathyroid(s);.. Parathyroidectomy or exploration of 10/16/14 parathyroid(s);.. Parathyroidectomy or exploration of 10/16/14 parathyroid(s);.. Parathyroidectomy or exploration of 10/16/14 parathyroid(s);.. Cystoscopy1 06/07/14 Surgery2 04/17/14 CABG x 23 10/2005 Oophorectomy4 1983 Hysterectomy5 1981 Bladder6 Colonoscopy abnormal7 1Third Coaptite suburethral bulking implant.2Coaptite suburethral bulking implant.3Dr. Merced. See conversion document.4She had surgery for ovarian cyst. She reports she has one ovary remaining.5without SO. See conversion document.63 bladder [id number] polyp Social History Social History Type Response Smoking Status Never smoker Assessment and Plan Extracted from: Title: Ambulatory Patient Education Author: Hazel Holloway RN Date: 10/16 [facility] [place] [phone] Post Operative Instructions Activities Ambulate _X_ Unrestricted Exercise __ None _x_ Light __ Unrestricted Other: 1 weeks Do not strain or lift more than 15 lbs. for 1 week. Diet __ Liquids (Jell-O, soups, etc., if you are nauseated) _X_ Begin with liquids and light foods then progress to regular diet. __ Regular diet __ No alcoholic beverages for 24 hours or while taking pain medication. Personal hygiene __ Bath _X_ Shower after _24_ hours __ Sponge Bath __ Sitz Baths [facility] Home care __ Remove dressing in ___hours __ Change dressing as necessary. __ Keep dressing clean and dry. __ Do not change dressing until you see your doctor. __ Elevate affected area above level of your heart. _X_ Apply ice to area for _24__ hours ___Remove drain in ___ hours __ Other: If any problems occur or if you have any further questions, please contact your physician. In an emergency, call [phone] ([phone]), if you cannot reach your physician. If you find that you cannot contact your physician, but feel that your signs and symptoms warrant a physicians attention, go to an Emergency room which is the closest to you. Activities: Call your surgeon promptly if you have: __ Take Tylenol/Advil as needed for discomfort _X_ If fever over _ 101__ _X_ Prescription given for discomfort. Use as directed. _X_ Pain not relieved by pain medication _X_ Bleeding or unexpected drainage from incision. _X_ Cleanse incision with Hydrogen peroxide twice daily and apply Polysporin ointment _X_ Resume routine medications. _X_ Extreme redness or swelling around incision. Other: __ Inability to urinate by: _X_ Next dose of pain medicine may be given at _ _X_ Persistent nausea and vomiting. (Take with food to prevent stomach upset.) _X_ Stool softener _X_ Cough develops or difficulty breathing. Do NOT drive or operate hazardous machinery for 24 hours or while taking pain medication. Do not sign any important documents or make important decisions for 24 hours following surgery. When taking pain medicine, be careful as you walk or climb stairs as dizziness is not unusual. Check temperature every four hours during the day for two days. Follow Up With: Where: When: Natanael Yadav [address] [place] [address] [facility] (1) 10/23/2014 02:00:00 Comments: Extracted from: Title: Admission H & P Author: Natanael Yadav MD Date: 10/16/14 Assessment/Plan Hyperparathyroidism. Patient booked for parathyroid exploration with intraoperative parathyroid hormone assay.
--- OUTSIDE RECORDS SUMMARY | 2016-11-23 09:53 | External Medical Summary | Referral Summary ---
:1940 Author Organization [facility] Address [address] [place] [address] Care Team Providers Name Role Phone Theodore Vipul Primary Care Physician Encounter VC Date(s): 02/14/15 - 02/14/15 [facility] [address] [place] [address] - [place] Discharge Diagnosis: Benign essential hypertension Discharge Diagnosis: Post-surgical hypothyroidism Discharge Diagnosis: Diabetes type 2, uncontrolled Discharge Diagnosis: Mixed hyperlipidemia Discharge Diagnosis: toucher up current use of insulin Discharge Disposition: 01-Home or Self Care Attending Physician: Shonna Lopez APRN Admitting Physician: Shonna Lopez APRN Vital Signs Most recent to oldest [Reference Range]: 1 Peripheral Pulse Rate [60-100 bpm] 80 bpm (02/14/15 10:07 AM) Blood Pressure [90-140/60-90 mmHg] 120/70 mmHg (02/14/15 10:07 AM) Problem List Condition Effective Dates Status Health Status Informant Arthritis(Confirmed)1 Active patient Benign essential Active hypertension(Confirmed)2 Hypertensive Active cardiomyopathy(Confirmed)3 Coronary atherosclerosis unspec Active vessel(Confirmed)4 DDD(Confirmed)5 Active Depressive disorder, 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 Active classified(Confirmed) Diabetes w/o complication type Active II(Confirmed)6 toucher up current use of Active insulin(Confirmed) Bilateral carotid artery Active disease(Confirmed)7 HNP(Confirmed)8 Active Hypercalcemia(Confirmed) Active Hyperparathyroidism(Confirmed) Active Low back pain(Confirmed)9 Active Lumbar spondylosis(Confirmed)10 Active Mixed hyperlipidemia(Confirmed)11 Active Morbid obesity(Confirmed) Active patient Overweight(Confirmed) Active Post-surgical Active hypothyroidism(Confirmed) Pure hypercholesterolemia(Confirmed)12 Active Sleep apnea(Confirmed) Active patient Diabetes type 2, Active uncontrolled(Confirmed) Vitamin D deficiency(Confirmed) Active [id number] conversion document.3mild concentrical VH, mild pulmo. ECHO 06/12/08. See conversion document.4See conversion document.5See conversion document.6See conversion document.7Rt > Lft. See conversion document.8See conversion document.9See conversion document.10foraminal narrowing L5-S1. See conversion document.11See conversion document.12See conversion document. Allergies, Adverse Reactions, Alerts No Known Medication Allergies Medications Januvia 50 mg oral tablet See Instructions, TAKE ONE TABLET BY MOUTH ONCE DAILY, # 30 tabs, eRx: [facility], TAKE ONE TABLET BY MOUTH ONCE DAILY Start Date: 01/22/15 Status: OrderedLevemir FlexPen 100 units/mL subcutaneous solution 32 units, SubCutaneous, Bedtime (once a day), 32 units at bedtime, # 2 boxes, 6 Refill(s), Pharmacy:[facility], 32 units SubCutaneous Bedtime (once a day),Instr:32 units at bedtime Start Date: 02/14/15 Status: Orderedlosartan 100 mg oral tablet See Instructions, TAKE ONE TABLET BY MOUTH ONCE DAILY, # 30 tabs, eRx: [facility], TAKE ONE TABLET BY MOUTH ONCE DAILY Start Date: 01/22/15 Status: OrderedMetoprolol Succinate ER 50 mg oral tablet, extended release See Instructions, TAKE TWO TABLETS BY MOUTH ONCE DAILY, # 60 tabs, eRx: [facility]28, TAKETWO TABLETS BY MOUTH ONCE DAILY Start Date: 12/25/14 Status: OrderedMiscellaneous DME DME Item One Touch Ultra 2 Glucose Test Strips Test once am & once pm DX - 250.00, See Instructions, # 100 Each, 0 Refill(s), Pharmacy: [facility] 2428, One Touch Ultra 2 Glucose Test Strips; Test once am & once pm ; DX - 250.00, Supply Start Date: 06/27/14 Status: Orderedpotassium gluconate 595 mg oral tablet 1 tabs, Oral, 5x/Day, # 100 tabs, 0 Refill(s) Start Date: 02/01/14 Status: Orderedspironolactone 25 mg oral tablet See Instructions, TAKE ONE TABLET BY MOUTH ONCE DAILY, # 90 tabs, eRx: [facility]28, TAKE ONE TABLET BY MOUTH ONCE DAILY Start Date: 12/25/14 Status: OrderedVitamin D3 2000 intl units oral tablet tabs, Oral, Daily, 0 Refill(s) Start Date: 02/01/14 Status: Ordered Results No data available for this section Immunizations Vaccine Date Refusal Reason influenza virus vaccine, inactivated 02/13/14 pneumococcal 13-valent conjugate vaccine 01/31/15 tetanus-diphth toxoids (Td) adult/adol 09/24/99 Procedures Procedure Date Related Diagnosis Body Site Parathyroidectomy or exploration of 10/16/14 parathyroid(s);.. Cystoscopy1 06/07/14 Surgery2 04/17/14 CABG x 23 10/2005 Oophorectomy4 1983 Hysterectomy1981 Bladder6 Colonoscopy abnormal7 1Third Coaptite suburethral bulking implant.2Coaptite suburethral bulking implant.3Dr. Merced. See conversion document.4She had surgery for ovarian cyst. She reports she has one ovary remaining.5without SO. See conversion document.63 bladder [id number] polyp Social History Social History Type Response Smoking Status Never smoker Assessment and Plan Extracted from: Title: Office Visit Note Author: Shonna Lopez CODING TECHNICIAN Date: 02/14/15 Assessment/Plan 1.Diabetes type 2, uncontrolled 1. check blood sugars fasting and 2 hours after meals 3-7 days per week 2. increase levemir to 32 units at hs 3. continue januvia 4. rotate injection sites 5. monitor diet and exercise 6. monitor feet daily I discussed the patient with the preceptor. Ordered: Albumin/Creatinine Ratio, Urine Hemoglobin A1c Office Visit Level 4 Est 03096 2.prison current use of insulin Ordered: Hemoglobin A1c Office Visit Level 4 Est 40441 3.Post-surgical hypothyroidism Ordered: Hemoglobin A1c Office Visit Level 4 Est 70821 4.Benign essential hypertension Ordered: Hemoglobin A1c Office Visit Level 4 Est 11710 5.Mixed hyperlipidemia Orders: insulin detemir, 32 units, SubCutaneous, Bedtime (once a day), 32 units at bedtime, # 2 boxes, 6 Refill(s), [facility], 32 units SubCutaneous Bedtime (once a day),Instr:32 units at bedtime Extracted from: Title: Ambulatory Patient Education Author: Shonna Lopez APRN Date: Family Medicine Diabetes and Sick Day Management Blood sugar (glucose) can be more difficult to control when you are sick. Colds , fever, flu, nausea, vomiting, and diarrhea are all examples of common illnesses that can cause problems for people with d iabetes. Loss of body fluids (dehydration) from fever, vomiting, diarrhea, infection, and the stress of a sickness can all cause blood glucose levels to increase. Because of this, it is very important t o take your diabetes medicines and to eat some form of carbohydrate food when you are sick. Liquid or soft foods are often tolerated, and they help to replace fluids. HOME CARE INSTRUCTIONS These main guidelines are intended for managing a short-term (24 hours or less ) sickness: Take your usual dose of insulin or oral diabetes medicine. An exception would be if you take any form of metformin. If you cannot eat or drink, you can become dehydrated and should not take this medicine. Continue to take your insulin even if you are unable to eat solid foods or are vomiting. Your insulin dose may stay the same, or it may need to be increased when you are sick. You will need to test your blood glucose more often, generally every 2 4 hours. If you have type 1 diabetes, test your urine for ketones every 4 hours. If you have type 2 diabetes, test your urin e for ketones as directed by your health care provider. Eat some form of food that contains carbohydrates. The carbohydrates can be in solid or liquid form. You should eat 4550 g of carbohydrates every 3 4 hours. Replace fluids if you have a fever, vomit, or have diarrhea. Ask your health care provider for specific rehydration instructions. Watch carefully for the signs of ketoacidosis if you have type 1 diabetes. Call your health care provider if any of the following symptoms are present, especially in children: Moderate to large ketones in the urine along with a high blood glucose level. Severe nausea. Vomiting. Diarrhea. Abdominal pain. Rapid breathing. Drink extra liquids that do not contain sugar such as water. Be careful with vqrt-xyx-mypxzge medicines. Read the labels. They may contain sugar or types of sugars that can increase your blood glucose level. Food Choices for Illness All of the food choices below contain about 15 g of carbohydrates. Plan ahead and keep some of these foods around. to cup carbonated beverage containing sugar. Carbonated beverages will usually be better tolerated if they are opened and left at room temperature for a few minutes. of a twin frozen ice pop. cup regular gelatin. cup juice. cup ice cream or frozen yogurt. cup cooked cereal. cup sherbet. 1 cup clear broth or soup. 1 cup cream soup. cup regular custard. cup regular pudding. 1 cup sports drink. 1 cup plain yogurt. 1 slice toast. 6 squares saltine crackers. 5 vanilla wafers. SEEK MEDICAL CARE IF: You are unable to drink fluids, even small amounts. You have nausea and vomiting for more than 6 hours. You have diarrhea for more than 6 hours. Your blood glucose level is more than 240 mg/dL, even with additional insulin. There is a change in mental status. You develop an additional serious sickness. You have been sick for 2 days and are not getting better. You have a fever. SEEK IMMEDIATE MEDICAL CARE IF: You have difficulty breathing. You have moderate to large ketone levels. MAKE SURE YOU: Understand these instructions. Will watch your condition. Will get help right away if you are not doing well or get worse. Document Released: 02/19/2004 Document Revised: 07/03/2014 Document Reviewed: 07/26/2013 ExitCare Patient Information 2015 [employer], [employer]. This information is not intended to replace advice given to you by your health care provider. Make sure you discuss any questions you have with your health care provider. No follow up information was provided.
--- OUTSIDE RECORDS SUMMARY | 2016-11-23 09:53 | External Medical Summary | Referral Summary ---
:1940 Author Organization [facility] Address [address] [place] [address] Care Team Providers Name Role Phone NicoleelliottVipul Primary Care Physician Encounter VC Date(s): 09/05/14 - 09/05/14 [facility] [address] [place] [address]- [place] Discharge Diagnosis: Preop testing Discharge Diagnosis: Hyperparathyroidism Discharge Disposition: 01-Home or Self Care Attending Physician: Natanael Yadav MD Admitting Physician: Natanael Yadav MD Referring Physician: Masoud Baptiste MD Vital Signs Most recent to oldest [Reference Range]: 1 Temperature Tympanic [36.6-38.1 degC] 37.3 degC (09/05/14 1:23 PM) Problem List Condition Effective Dates Status Health Status Informant Arthritis(Confirmed)1 Active patient Benign essential Active hypertension(Confirmed)2 Hypertensive Active cardiomyopathy(Confirmed)3 Coronary atherosclerosis unspec Active vessel(Confirmed)4 DDD(Confirmed)5 Active Depressive disorder, not elsewhere 2005 Active classified(Confirmed) Diabetes w/o complication type Active II(Confirmed)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) Bilateral carotid artery Active disease(Confirmed)7 HNP(Confirmed)8 Active Hypercalcemia(Confirmed) Active Hyperparathyroidism(Confirmed) Active Low back pain(Confirmed)9 Active Lumbar spondylosis(Confirmed)10 Active Mixed hyperlipidemia(Confirmed)11 Active Morbid obesity(Confirmed) Active patient Overweight(Confirmed) Active Post-surgical Active hypothyroidism(Confirmed) Pure hypercholesterolemia(Confirmed)12 Active Sleep apnea(Confirmed) Active patient Diabetes type 2, Active uncontrolled(Confirmed) Vitamin D deficiency(Confirmed) Active [id number] conversion document.3mild concentrical VH, mild pulmo. ECHO 4/13/09. See conversion document.4See conversion document.5See conversion document.6See conversion document.7Rt > Lft. See conversion document.8See conversion document.9See conversion document.10foraminal narrowing L5-S1. See conversion document.11See conversion document.12See conversion document. Allergies, Adverse Reactions, Alerts No Known Medication Allergies Medications Januvia 50 mg oral tablet See Instructions, TAKE ONE TABLET BY MOUTH ONCE DAILY, # 30 tabs, 5 Refill(s), eRx: [place] [id number], TAKE ONE TABLET BY MOUTH ONCE DAILY Start Date: 03/08/15 Status: OrderedLevemir FlexPen 100 units/mL subcutaneous solution 32 units, SubCutaneous, Bedtime (once a day), 32 units at bedtime, # 2 boxes, 6 Refill(s), Pharmacy:[place] [facility] [id number], 32 units SubCutaneous Bedtime (once a day),Instr:32 units at bedtime Start Date: 02/14/15 Status: Orderedlosartan 100 mg oral tablet See Instructions, TAKE ONE TABLET BY MOUTH ONCE DAILY, # 30 tabs, 5 Refill(s), eRx: [place] [id number], TAKE ONE TABLET BY MOUTH ONCE DAILY Start Date: 03/08/15 Status: OrderedMetoprolol Succinate ER 50 mg oral tablet, extended release See Instructions, TAKE TWO TABLETS BY MOUTH ONCE DAILY, # 60 tabs, 0 Refill(s), Pharmacy: [place] [id number] Start Date: 03/08/15 Status: OrderedMiscellaneous DME DME Item One Touch Ultra blue test strip. To test in am and evening and prn Diag - E11.65, See Instructions, # 50 Each, 1 Refill(s), Pharmacy: [place] [id number], One Touch Ultra blue test strip.To test in am and evening and prn ; Diag - E11.65,... Start Date: 03/08/15 Status: OrderedMiscellaneous DME DME Item One Touch Ultra 2 Glucose Test Strips Test once am & once pm DX - 250.00, See Instructions, # 100 Each, 0 Refill(s), Pharmacy: [place] [id number], One Touch Ultra 2 Glucose Test Strips; Test once am & once pm ; DX - 250.00, Supply Start Date: 06/27/14 Status: OrderedMobic 15 mg oral tablet 15 mg 1 tabs, Oral, Daily, # 15 tabs, 0 Refill(s), Pharmacy: [facility], 1 tabs Oral Daily Start Date: 03/15/15 Status: Orderedpotassium gluconate 595 mg oral tablet 1 tabs, Oral, 5x/Day, # 100 tabs, 0 Refill(s) Start Date: 02/01/14 Status: Orderedspironolactone 25 mg oral tablet See Instructions, TAKE ONE TABLET BY MOUTH ONCE DAILY, # 90 tabs, eRx: [facility], TAKE ONE TABLET [...] Site Parathyroidectomy or exploration of 10/16/14 parathyroid(s);.. Laryngoscopy, flexible fiberoptic; diagnostic 09/05/14 Laryngoscopy, flexible fiberoptic; diagnostic 09/05/14 Laryngoscopy, flexible fiberoptic; diagnostic 09/05/14 Cystoscopy1 06/07/14 Surgery2 04/17/14 CABG x 23 10/2005 Oophorectomy4 1983 Hysterectomy5 1981 Bladder6 Colonoscopy abnormal7 1Third Coaptite suburethral bulking implant.2Coaptite suburethral bulking implant.3Dr. Merced. See conversion document.4She had surgery for ovarian cyst. She reports she has one ovary remaining.5without SO. See conversion document.63 bladder [id number] polyp Social History Social History Type Response Smoking Status Never smoker Assessment and Plan Extracted from: Title: Office Visit Note Author: Natanael Yadav MD Date: 09/05/14 Assessment/Plan 1.Hyperparathyroidism Evaluation is in keeping with primary hyperparathyroidism. Patient would benefit from excision of parathyroid with intraoperative PTH assay. I went over the surgical proc edure with the patient describing a small anterior skin crease incision. We discussed recurrent laryngeal nerve function and remote possibility of damage to same. We discussed the possibility of req uiring calcium and vitamin D postoperative. We discussed possibility of removing more than one abnormal gland or possibly not finding an abnormal gland. She appears to understand all concepts and wi shes to proceed. Surgery has been scheduled in surgery center for 10/10/2014. Ordered: Laryngoscopy, Flexible Fiberoptic; Diagnostic 10093 Office Visit Level 4 New [id number] Surg. Parathyroid Hormone Surg. Parathyroid Hormone Surg. Parathyroid Hormone Surg. Parathyroid Hormone Surg. Parathyroid Hormone Orders: sitaGLIPtin, 50 mg 1 tabs, Oral, Daily, i 25 mg tab po qd, # 30 tabs , 3 Refill(s), Pharmacy: [id number]
--- OUTSIDE RECORDS SUMMARY | 2016-11-23 09:53 | External Medical Summary | Referral Summary ---
:1940 Author Organization [facility] Address [address] [place] [address] [place] [address] Care Team Providers Name Role Phone Pool Marie Primary Care Physician Encounter VC Date(s): 01/31/15 - 01/31/15 [facility] [address] [place] [address] [place] [phone] Discharge Disposition: 01-Home or Self Care Attending Physician: Pool Marie MD Admitting Physician: Pool Marie MD Vital Signs No data available for this section Problem List Condition Effective Dates Status Health Status Informant Arthritis(Confirmed)1 Active patient Benign essential Active hypertension(Confirmed)2 Hypertensive Active cardiomyopathy(Confirmed)3 Coronary atherosclerosis unspec Active vessel(Confirmed)4 DDD(Confirmed)5 Active Depressive disorder, not elsewhere 2005 Active classified(Confirmed) Diabetes w/o complication type Active II(Confirmed)6 Bilateral carotid artery Active disease(Confirmed)7 HNP(Confirmed)8 Active Hypercalcemia(Confirmed) Active Hyperparathyroidism(Confirmed) Active Low back pain(Confirmed)9 Active Lumbar spondylosis(Confirmed)10 Active Mixed hyperlipidemia(Confirmed)11 Active Morbid obesity(Confirmed) Active patient Overweight(Confirmed) Active Pure hypercholesterolemia(Confirmed)12 Active Sleep apnea(Confirmed) Active patient Diabetes type 2, Active uncontrolled(Confirmed) Vitamin D deficiency(Confirmed) Active [id number] conversion document.3mild concentrical VH, mild pulmo. ECHO 06/12/08. See conversion document.4See conversion document.5See conversion document.6See conversion document.7Rt > Lft. See conversion document.8See conversion document.9See conversion document.10foraminal narrowing L5-S1. See conversion document.11See conversion document.12See conversion document. Allergies, Adverse Reactions, Alerts No Known Medication Allergies Medications Januvia 50 mg oral tablet See Instructions, TAKE ONE TABLET BY MOUTH ONCE DAILY, # 30 tabs, eRx: [facility], TAKE ONE TABLET BY MOUTH ONCE DAILY Start Date: 01/22/15 Status: OrderedLevemir FlexPen 100 units/mL subcutaneous solution 30 units, SubCutaneous, Bedtime (once a day), 30 units at bedtime, # 2 boxes, 1 Refill(s), Pharmacy:[facility], 30 units SubCutaneous Bedtime (once a day),Instr:30 units at bedtime Start Date: 08/17/14 Status: Orderedlosartan 100 mg oral tablet See Instructions, TAKE ONE TABLET BY MOUTH ONCE DAILY, # 30 tabs, eRx: [facility], TAKE ONE TABLET BY MOUTH ONCE DAILY Start Date: 01/22/15 Status: OrderedMetoprolol Succinate ER 50 mg oral tablet, extended release See Instructions, TAKE TWO TABLETS BY MOUTH ONCE DAILY, # 60 tabs, eRx: [place] [id number], TAKETWO TABLETS BY MOUTH ONCE DAILY Start Date: 12/25/14 Status: OrderedMiscellaneous DME DME Item One Touch Ultra 2 Glucose Test Strips Test once am & once pm DX - 250.00, See Instructions, # 100 Each, 0 Refill(s), Pharmacy: [place] [id number], One Touch Ultra 2 Glucose Test Strips; Test once am & once pm ; DX - 250.00, Supply Start Date: 08/21/14 Status: OrderedMiscellaneous DME See Instructions, One Touch Ultra 2 Glucose Test Strips; Test once am & once pm; DX - 250.02, # 100 Each, eRx: [facility], One Touch Ultra 2 Glucose Test Strips; Test once am & oncepm; DX - 250.00 Start Date: 10/23/14 Status: OrderedMiscellaneous DME See Instructions, One Touch Ultra 2 Glucose Test Strips; Test once am & once pm; DX - 250.00, # 100 Each, eRx: [facility], One Touch Ultra 2 Glucose Test Strips; Test once am & oncepm; DX - 250.00 Start Date: 12/25/14 Status: OrderedMiscellaneous DME DME Item One Touch Ultra 2 Glucose Test Strips Test once am & once pm DX - 250.00, See Instructions, # 100 Each, 0 Refill(s), Pharmacy: [facility], One Touch Ultra 2 Glucose Test Strips; Test once am & once pm ; DX - 250.00, Supply Start Date: 06/27/14 Status: Orderedpotassium gluconate 595 mg oral tablet 1 tabs, Oral, 5x/Day, # 100 tabs, 0 Refill(s) Start Date: 02/01/14 Status: Orderedspironolactone 25 mg oral tablet See Instructions, TAKE ONE TABLET BY MOUTH ONCE DAILY, # 90 tabs, eRx: [facility], TAKE ONE TABLET BY [...] ovary remaining.5without SO. See conversion document.63 bladder [id number] polyp Social History Social History Type Response Smoking Status Never smoker Assessment and Plan No data available for this section
--- OUTSIDE RECORDS SUMMARY | 2016-11-23 09:53 | External Medical Summary | Referral Summary ---
:1940 Author Organization [facility] Address [address] [place] [address] [place] [address] Care Team Providers Name Role Phone Pool Marie Primary Care Physician Encounter VC Date(s): 02/07/15 - 02/07/15 [facility] [address] [place] [address] [place] [phone] [place] Discharge Diagnosis: Viral URI with cough Discharge Disposition: 01-Home or Self Care Attending Physician: Pool Marie MD Vital Signs Most recent to oldest [Reference Range]: 1 Temperature Tympanic [36.6-38.1 degC] 37.0 degC (02/07/15 1:41 PM) Peripheral Pulse Rate [60-100 bpm] 68 bpm (02/07/15 1:41 PM) Respiratory Rate [14-20 br/min] 18 br/min (02/07/15 1:41 PM) Blood Pressure [90-140/60-90 mmHg] 115/78 mmHg (02/07/15 1:41 PM) SpO2 98 % (02/07/15 1:41 PM) Problem List Condition Effective Dates Status [...] 2, Active uncontrolled(Confirmed) Vitamin D deficiency(Confirmed) Active [id number] conversion document.3mild concentrical VH, mild pulmo. ECHO 06/12/08. See conversion document.4See conversion document.5See conversion document.6See conversion document.7Rt > Lft. See conversion document.8See conversion document.9See conversion document.10foraminal narrowing L5-S1. See conversion document.11See conversion document.12See conversion document. Allergies, Adverse Reactions, Alerts No Known Medication Allergies Medications Januvia 50 mg oral tablet See Instructions, TAKE ONE TABLET BY MOUTH ONCE DAILY, # 30 tabs, eRx: [facility], TAKE ONE TABLET BY MOUTH ONCE DAILY Start Date: 01/22/15 Status: OrderedLevemir FlexPen 100 units/mL subcutaneous solution 30 units, SubCutaneous, Bedtime (once a day), 30 units at bedtime, # 2 boxes, 1 Refill(s), Pharmacy:[facility], 30 units SubCutaneous Bedtime (once a day),Instr:30 units at bedtime Start Date: 08/17/14 Status: Orderedlosartan 100 mg oral tablet See Instructions, TAKE ONE TABLET BY MOUTH ONCE DAILY, # 30 tabs, eRx: [facility], TAKE ONE TABLET BY MOUTH ONCE DAILY Start Date: 01/22/15 Status: OrderedMetoprolol Succinate ER 50 mg oral tablet, extended release See Instructions, TAKE TWO TABLETS BY MOUTH ONCE DAILY, # 60 tabs, eRx: [facility], TAKETWO TABLETS BY MOUTH ONCE DAILY Start Date: 12/25/14 Status: OrderedMiscellaneous DME DME Item One Touch Ultra 2 Glucose Test Strips Test once am & once pm DX - 250.00, See Instructions, # 100 Each, 0 Refill(s), Pharmacy: [facility], One Touch Ultra 2 Glucose Test Strips; Test once am & once pm ; DX - 250.00, Supply Start Date: 06/27/14 Status: Orderedpotassium gluconate 595 mg oral tablet 1 tabs, Oral, 5x/Day, # 100 tabs, 0 Refill(s) Start Date: 02/01/14 Status: Orderedspironolactone 25 mg oral tablet See Instructions, TAKE ONE TABLET BY MOUTH ONCE DAILY, # 90 tabs, eRx: [facility], TAKE ONE TABLET BY MOUTH ONCE DAILY Start Date: 12/25/14 Status: OrderedTessalon Perles 100 mg oral capsule 100 mg 1 caps, Oral, TID, as needed for cough, X 7 days, # 21 caps, 0 Refill(s) , Pharmacy: [facility], 1 caps Oral TID,x7 days,PRN:as needed for cough Start Date: 02/07/15 Stop Date: 02/14/15 Status: OrderedVitamin D3 2000 intl units oral [...] ovary remaining.5without SO. See conversion document.63 bladder [id number] polyp Social History Social History Type Response Smoking Status Never smoker Assessment and Plan Extracted from: Title: Ambulatory Patient Education Author: Pool Marie MD Date: Family Medicine Viral Infections A viral infection can be caused by different types of viruses.Most viral infections are not serious and resolve on their own. However, some infections may cause severe symptoms and may lead to further complications. SYMPTOMS Viruses can frequently cause: Minor sore throat. Aches and pains. Headaches. Runny nose. Different types of rashes. Watery eyes. Tiredness. Cough. Loss of appetite. Gastrointestinal infections, resulting in nausea, vomiting, and diarrhea. These symptoms do not respond to antibiotics because the infection is not caused by bacteria. However, you might catch a bacterial infection following the viral infection. This is sometimes called a "tobin perinfection." Symptoms of such a bacterial infection may include: Worsening sore throat with pus and difficulty swallowing. Swollen neck glands. Chills and a high or persistent fever. Severe headache. Tenderness over the sinuses. Persistent overall ill feeling (malaise), muscle aches, and tiredness ( fatigue). Persistent cough. Yellow, green, or brown mucus production with coughing. HOME CARE INSTRUCTIONS Only take [id number] or prescription medicines for pain, discomfort , diarrhea, or fever as directed by your caregiver. Drink enough water and fluids to keep your urine clear or pale yellow. Sports drinks can provide valuable electrolytes, sugars, and hydration. Get plenty of rest and maintain proper nutrition. Soups and broths with crackers or rice are fine. SEEK IMMEDIATE MEDICAL CARE IF: You have severe headaches, shortness of breath, chest pain, neck pain, or an unusual rash. You have uncontrolled vomiting, diarrhea, or you are unable to keep down fluids. You or your child has an oral temperature above 102 F (38.9 C), not controlled by medicine. Your baby is older than 3 months with a rectal temperature of 102 F ( 38.9 C) or higher. Your baby is 3 months old or younger with a rectal temperature of 100.4 F (38 C) or higher. MAKE SURE YOU: Understand these instructions. Will watch your condition. Will get help right away if you are not doing well or get worse. Document Released: 11/26/2005 Document Revised: 05/10/2012 Document Reviewed: 06/23/2011 ExitCare Patient Information 2015 [facility], [facility]. This information is not intended to replace advice given to you by your health care provider. Make sure you discuss any questions you have with your health care provider. Follow Up With: Where: When: Pool Marie [address] [place] [address] [address]; [place] [address] Business (1) Within 3 to 5 days, only if needed Comments: Extracted from: Title: Office Visit Note Author: Pool Marie MD Date: 02/07/15 Assessment/Plan Viral URI with cough She will be placed on Tessalon Perle 100 mg 3 times daily as needed. She will return to clinic as needed. Orders: benzonatate, 100 mg 1 caps, Oral, TID, as needed for cough, X 7 days , # 21 caps, 0 Refill(s), Pharmacy: [id number], 1 caps Oral TID,x7 days,PRN:as needed for cough
--- OUTSIDE RECORDS SUMMARY | 2016-11-23 09:53 | External Medical Summary | Referral Summary ---
:1940 Author Organization [facility] Address [address] [place] [address] Care Team Providers Name Role Phone Vipul Jaimes Primary Care Physician Encounter VC Date(s): 11/01/14 - 11/01/14 [facility] [address] [place] [address] - [place] Discharge Diagnosis: Hyperparathyroidism Discharge Diagnosis: Hypercalcemia Discharge Diagnosis: Diabetes type 2, uncontrolled Discharge Diagnosis: Vitamin D deficiency Discharge Disposition: 01-Home or Self Care Attending Physician: Masoud Baptiste MD Admitting Physician: Masoud Baptiste MD Vital Signs Most recent to oldest [Reference Range]: 1 Peripheral Pulse Rate [60-100 bpm] 60 bpm (11/01/14 10:42 AM) Blood Pressure [90-140/60-90 mmHg] 120/68 mmHg (11/01/14 10:42 AM) Problem List Condition Effective Dates Status Health Status Informant Arthritis(Confirmed)1 Active patient Benign essential Active hypertension(Confirmed)2 Hypertensive Active cardiomyopathy(Confirmed)3 Coronary atherosclerosis unspec Active vessel(Confirmed)4 DDD(Confirmed)5 Active Depressive disorder, 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 Active classified(Confirmed) Diabetes w/o complication type Active II(Confirmed)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) Bilateral carotid artery Active disease(Confirmed)7 HNP(Confirmed)8 Active Hypercalcemia(Confirmed) Active Hyperparathyroidism(Confirmed) Active Low back pain(Confirmed)9 Active Lumbar spondylosis(Confirmed)10 Active Mixed hyperlipidemia(Confirmed)11 Active Morbid obesity(Confirmed) Active patient Overweight(Confirmed) Active Post-surgical Active hypothyroidism(Confirmed) Pure hypercholesterolemia(Confirmed)12 Active Sleep apnea(Confirmed) Active patient Diabetes type 2, Active uncontrolled(Confirmed) Vitamin D deficiency(Confirmed) Active [id number] conversion document.3mild concentrical VH, mild pulmo. ECHO [...] DAILY, # 30 tabs, 5 Refill(s), eRx: [id number], TAKE ONE TABLET BY MOUTH ONCE DAILY Start Date: 03/08/15 Status: OrderedLasix 20 mg oral tablet 20 mg 1 tabs, Oral, Daily, # 30 tabs, 0 Refill(s), Pharmacy: [facility] # [id number], 1 tabs Oral Daily Start Date: 04/25/15 Status: OrderedLevemir FlexPen 100 units/mL subcutaneous solution 32 units, SubCutaneous, Bedtime (once a day), 32 units at bedtime, # 2 boxes, 6 Refill(s), Pharmacy:[facility] #[id number], 32 units SubCutaneous Bedtime ( once a day),Instr:32 units at bedtime Start Date: 03/21/15 Status: Orderedlosartan 100 mg oral tablet See Instructions, TAKE ONE TABLET BY MOUTH ONCE DAILY, # 30 tabs, 5 Refill(s), eRx: [facility], TAKE ONE TABLET BY MOUTH ONCE DAILY Start Date: 03/08/15 Status: OrderedMetoprolol Succinate ER 50 mg oral tablet, extended release See Instructions, TAKE ONE TABLET BY MOUTH ONCE DAILY, # 60 tabs, 0 Refill(s), Pharmacy: [facility] Start Date: 03/08/15 Status: OrderedMiraLax 17 g, Oral, Daily, 0 Refill(s) Start Date: 04/24/15 Status: OrderedMiscellaneous DME DME Item One Touch Ultra blue test strip. To test in am and evening and prn Diag - E11.65, See Instructions, # 50 Each, 1 Refill(s), Pharmacy: [facility], One Touch Ultra blue test strip.To test in am and evening and prn ; Diag - E11.65,... Start Date: 03/08/15 Status: OrderedMiscellaneous DME DME Item One Touch Ultra 2 Glucose Test Strips Test once am & once pm DX - 250.00, See Instructions, # 100 Each, 0 Refill(s), Pharmacy: [facility], One Touch Ultra 2 Glucose Test Strips; Test once am & once pm ; DX - 250.00, Supply Start Date: 06/27/14 Status: Orderedomeprazole 20 mg oral delayed release tablet 20 mg 1 tabs, Oral, Daily, # 30 tabs, 3 Refill(s), Pharmacy: [facility] # [id number], 1 tabs Oral Daily,x30 days Start Date: [...] DAILY, # 90 tabs, 0 Refill(s), Pharmacy: [facility] #[id number], TAKE ONE TABLET BY MOUTH ONCE DAILY [...] Vomiting, # 30 tabs, 0 Refill(s), Pharmacy: [facility] #[id number], 1 tabs Oral q6hr,PRN:Nausea or Vomiting Start Date: 04/25/15 Stop Date: 05/24/15 Status: Ordered Results Chemistry Most recent to oldest [Reference Range]: 1 Sodium Lvl [135-144 mEq/L] 138 mEq/L (11/01/14:27 AM) Potassium Lvl [3.5-5.2 mEq/L] 4.5 mEq/L (11/01/14: AM) Chloride [99-111 mEq/L] 106 mEq/L (11/01/14: AM) CO2 [22-31 mEq/L] 26 mEq/L (11/01/14 11: AM) AGAP [3-20] 6 (11/01/14: AM) BUN [10-20 mg/dL] 16 mg/dL (11/01/14: AM) Glucose Lvl [70-99 mg/dL] 144 mg/dL *HI* (11/01/14: AM) Creatinine Lvl [0.57-1.11 mg/dL] 0.87 mg/dL (11/01/14: AM) eGFR [>60 mL/min] >60 mL/min 1 (11/01/14: AM) Calcium Lvl [8.9-10.5 mg/dL] 9.8 mg/dL (11/01/14: AM) Albumin Lvl [3.4-4.8 gm/dL] 4.2 gm/dL (11/01/14: AM) Total Protein [6.2-8.1 gm/dL] 6.6 gm/dL (11/01/14: AM) Globulin [1.8-4.0 gm/dL] 2.4 gm/dL (11/01/14 11: AM) ALT [0-55 U/L] 19 U/L (11/01/14: AM) AST [5-34 U/L] 20 U/L (11/01/14 11: AM) Alk Phos [40-150 U/L] 63 U/L (11/01/14 11: AM) Bili Total [0.2-1.2 mg/dL] 0.8 mg/dL (11/01/14 11:27 AM) Calcium Ionized [1.19-1.41 mmol/L] 1.29 mmol/L (11/01/14 11:27 AM) 25-Hydroxy D2 15 ng/mL (11/01/14 11:27 AM) 25-Hydroxy D3 32 ng/mL (11/01/14 11:27 AM) 25-Hydroxy D Total [30-74 ng/mL] 47 ng/mL 2 (11/01/14 11:27 AM) PTH (Parathyroid Hormone) [6.6-88.9 pg/mL] 51.7 pg/mL (11/01/14 11:27 AM) T4 Free [0.7-1.5 ng/dL] 1.3 ng/dL (11/01/14 11:27 AM) TSH with Reflex Free T4 [0.35-4.94] 0.18 *LOW* (11/01/14 11:27 AM) Hgb A1c [4.1-5.6 %] 6.3 % *HI* (11/01/14 11:27 AM) eAvg Glucose 134.1 mg/dL (11/01/14 11:27 AM) 1Result Comment: Multiply eGFR results by 1.21 for race.2Result Comment: The desirable level of 25-Hydroxy Vitamin D Total(D2 + D3 ) is 30-74 ng/mL. A level consistently >200 is potentially toxic. Immunizations Vaccine Date Refusal Reason influenza virus [...] ovary remaining.5without SO. See conversion document.63 bladder [id number] polyp Social History Social History Type Response Smoking Status Never smoker Assessment and Plan Extracted from: Title: Office Visit Note Author: Masoud Baptiste MD Date: 11/01/14 Assessment/Plan 1.Diabetes type 2, uncontrolled Continue same diabetes regimen. Check hemoglobin A1c. If A1c is above target we'llstop Januvia and add prandial insulin. Ordered: Calcium Ionized Comprehensive Metabolic Panel Hemoglobin A1c PTH TSH with Reflex Free T4 Vitamin D 25 Hydroxy Level 2.Hypercalcemia Check serum calcium with ionized calcium. This will help us document whether hyper parathyroidism has resolved. Ordered: 3.Hyperparathyroidism Check serum PTH. Ordered: 4.Vitamin D deficiency Check vitamin D level. Follow-up in 3 months. Ordered:
--- OUTSIDE RECORDS SUMMARY | 2016-11-23 09:53 | External Medical Summary | Referral Summary ---
:1940 Author [facility] Address [address] [place] [address] [place] [address] Care Team Providers Name Role Phone Vipul Jaimes Primary Care Physician Encounter VC Date(s): 05/03/15 - 05/03/15 [facility] [place] [place] [address] Discharge Diagnosis: Dependent edema Discharge Diagnosis: GERD (gastroesophageal reflux disease) Discharge Diagnosis: Pain in joint of left knee Discharge Disposition: 01-Home or Self Care Attending Physician: Vipul Jaimes DO Admitting Physician: Vipul Jaimes DO Vital Signs Most recent to oldest [Reference Range]: 1 Temperature Tympanic [36.6-38.1 degC] 36.8 degC (05/03/15 2:02 PM) Peripheral Pulse Rate [60-100 bpm] 88 bpm (05/03/15 2:02 PM) Blood Pressure [90-140/60-90 mmHg] 167/75 mmHg *HI* (05/03/15 2:02 PM) Problem List Condition Effective Dates Status Health Status Informant Arthritis(Confirmed)1 Active patient Benign essential Active hypertension(Confirmed)2 Hypertensive Active cardiomyopathy(Confirmed)3 Coronary atherosclerosis unspec Active vessel(Confirmed)4 DDD(Confirmed)5 Active Depressive disorder, 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 Active classified(Confirmed) Diabetes w/o complication type Active II(Confirmed)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) Bilateral carotid artery Active disease(Confirmed)7 HNP(Confirmed)8 Active Hypercalcemia(Confirmed) Active Hyperparathyroidism(Confirmed) Active Low back pain(Confirmed)9 Active Lumbar spondylosis(Confirmed)10 Active Mixed hyperlipidemia(Confirmed)11 Active Morbid obesity(Confirmed) Active patient Overweight(Confirmed) Active Post-surgical Active hypothyroidism(Confirmed) Pure hypercholesterolemia(Confirmed)12 Active Sleep apnea(Confirmed) Active patient Diabetes type 2, Active uncontrolled(Confirmed) Vitamin D deficiency(Confirmed) Active [id number] conversion document.3mild concentrical VH, mild pulmo. ECHO [...] DAILY, # 30 tabs, 5 Refill(s), eRx: [facility], TAKE ONE TABLET BY MOUTH ONCE DAILY Start Date: 03/08/15 Status: OrderedLasix 20 mg oral tablet 20 mg 1 tabs, Oral, Daily, # 30 tabs, 0 Refill(s), Pharmacy: [facility] # [id number], 1 tabs Oral Daily Start Date: 04/25/15 Status: OrderedLevemir FlexPen 100 units/mL subcutaneous solution 32 units, SubCutaneous, Bedtime (once a day), 32 units at bedtime, # 2 boxes, 6 Refill(s), Pharmacy:[facility] #[id number], 32 units SubCutaneous Bedtime ( once a day),Instr:32 units at bedtime Start Date: 03/21/15 Status: Orderedlosartan 100 mg oral tablet See Instructions, TAKE ONE TABLET BY MOUTH ONCE DAILY, # 30 tabs, 5 Refill(s), eRx: [facility], TAKE ONE TABLET BY MOUTH ONCE DAILY Start Date: 03/08/15 Status: OrderedMetoprolol Succinate ER 50 mg oral tablet, extended release See Instructions, TAKE ONE TABLET BY MOUTH ONCE DAILY, # 60 tabs, 0 Refill(s), Pharmacy: [facility] Start Date: 03/08/15 Status: OrderedMiraLax 17 g, Oral, Daily, 0 Refill(s) Start Date: 04/24/15 Status: OrderedMiscellaneous DME DME Item One Touch Ultra blue test strip. To test in am and evening and prn Diag - E11.65, See Instructions, # 50 Each, 1 Refill(s), Pharmacy: [facility], One Touch Ultra blue test strip.To test in am and evening and prn ; Diag - E11.65,... Start Date: 03/08/15 Status: OrderedMiscellaneous DME DME Item One Touch Ultra 2 Glucose Test Strips Test once am & once pm DX - 250.00, See Instructions, # 100 Each, 0 Refill(s), Pharmacy: [facility], One Touch Ultra 2 Glucose Test Strips; Test once am & once pm ; DX - 250.00, Supply Start Date: 06/27/14 Status: Orderedomeprazole 20 mg oral delayed release tablet 20 mg 1 tabs, Oral, Daily, # 30 tabs, 3 Refill(s), Pharmacy: [facility] # [id number], 1 tabs Oral Daily,x30 days Start Date: [...] DAILY, # 90 tabs, 0 Refill(s), Pharmacy: [facility] #[id number], TAKE ONE TABLET BY MOUTH ONCE DAILY [...] Vomiting, # 30 tabs, 0 Refill(s), Pharmacy: [facility] #[id number], 1 tabs Oral q6hr,PRN:Nausea or Vomiting Start [...] ovary remaining.5without SO. See conversion document.63 bladder [id number] polyp Social History Social History Type Response Smoking Status Never smoker Assessment and Plan Extracted from: Title: Office Visit Note Author: Vipul Jamies DO Date: 05/03/15 Assessment/Plan Dependent edema 1. The edema to the lower extremity has resolved completely. 2. Discontinue Lasix. 3. Continue avoiding salt in her diet. 4. Continue elevating leg when resting. 5. Follow-up if worsening presentation. Ordered: Office Visit Level 4 Est 70968 GERD (gastroesophageal reflux disease) 1. Her abdominal discomfort is likely secondary to poorly controlled acid reflux. 2. Omeprazole 20 mg daily. 3. Follow-up if worsening presentation or no improvement by next week. Ordered: Office Visit Level 4 Est 21719 Pain in joint of left knee 1. Postsurgical pain to the left knee is as expected. 2. Continue with ice compression. 3. Encourage the patient to ensure that she is taking her pain medication as prescribed. At this time concerns for her becoming addicted to the medication is very low. Ordered: Office Visit Level 4 Est 61461 Orders: omeprazole, 20 mg 1 tabs, Oral, Daily, # 30 tabs, 3 Refill(s), Pharmacy: [facility] #[id number], 1 tabs Oral Daily,x30 days
--- OUTSIDE RECORDS SUMMARY | 2016-11-23 09:53 | External Medical Summary | Referral Summary ---
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) Bilateral carotid artery Active disease(Confirmed)7 HNP(Confirmed)8 Active Hypercalcemia(Confirmed) Active Hyperparathyroidism(Confirmed) Active Low back pain(Confirmed)9 Active Lumbar spondylosis(Confirmed)10 Active Mixed hyperlipidemia(Confirmed)11 Active Morbid obesity(Confirmed) Active patient Overweight(Confirmed) Active Post-surgical Active hypothyroidism(Confirmed) Pure hypercholesterolemia(Confirmed)12 Active Sleep apnea(Confirmed) Active patient Diabetes type 2, Active uncontrolled(Confirmed) Vitamin D deficiency(Confirmed) Active [id number] conversion document.3mild concentrical VH, mild pulmo. ECHO 06/12/08. See conversion document.4See conversion document.5See conversion document.6See conversion document.7Rt > Lft. See conversion document.8See conversion document.9See conversion document.10foraminal narrowing L5-S1. See conversion document.11See conversion document.12See conversion document. Allergies, Adverse Reactions, Alerts No Known Medication Allergies Medications acetaminophen 650 mg, Oral, QID, 0 Refill(s) Start Date: 04/24/15 Status: Orderedcitalopram 10 mg oral tablet See Instructions, TAKE ONE TABLET BY MOUTH DAILY, # 30 tabs, 2 Refill(s), eRx: [facility] #[id number], TAKE ONE TABLET BY MOUTH DAILY Start Date: 12/28/15 Status: OrderedEcotrin mg, Oral, Daily, 0 Refill(s) Start Date: 04/25/15 Status: OrderedglipiZIDE 5 mg oral tablet 5 mg 1 tabs, Oral, BID, # 180 tabs, 3 Refill(s), Pharmacy: [facility] # [id number], 1 tabs Oral BID,x90 days Start Date: 10/10/15 Stop Date: 10/04/16 Status: OrderedLevemir FlexPen 100 units/mL subcutaneous solution 32 units, SubCutaneous, Bedtime (once a day), 20 units at bedtime, # 2 boxes, 6 Refill(s), Pharmacy:[facility] #[id number], 32 units SubCutaneous Bedtime ( once a day),Instr:32 units at bedtime Start Date: 03/21/15 Status: Orderedlosartan 100 mg oral tablet See Instructions, TAKE ONE TABLET BY MOUTH DAILY, # 30 tabs, 2 Refill(s), eRx: [facility] #[id number], TAKE ONE TABLET BY MOUTH DAILY Start Date: 11/13/15 Status: OrderedMetoprolol Succinate ER 50 mg oral tablet, extended release See Instructions, TAKE ONE TABLET BY MOUTH DAILY, # 60 tabs, 2 Refill(s), eRx: [facility] #[id number], TAKE ONE TABLET BY MOUTH DAILY Start Date: 12/19/15 Status: OrderedMiraLax 17 g, Oral, Daily, 0 Refill(s) Start Date: 04/24/15 Status: OrderedMisc Medication Meloxicam/Topiramate/Tramadol/Lidocaine/Prilocaine compunded lotion 0.18/1/0.25 /2/2%, 0 Refill(s) Start Date: 11/01/15 Status: OrderedMiscellaneous DME DME Item One Touch Ultra 2 Glucose Test Strips Test once am & once pm DX - 250.00, See Instructions, # 100 Each, 0 Refill(s), Pharmacy: [facility], One Touch Ultra 2 Glucose Test Strips; Test once am & once pm ; DX - 250.00, Supply Start Date: 06/27/14 Status: OrderedONETOUCH ULTRA TEST STRIPS See Instructions, USE ONE STRIP TO TEST EVERY MORNING AND EVERY EVENING, # 50 strip, eRx: [facility] #[id number], USE ONE STRIP TO TEST EVERY MORNING AND EVERY EVENING Start Date: 10/26/15 Status: OrderedONETOUCH ULTRA TEST STRIPS See Instructions, USE ONE STRIP TO TEST EVERY MORNING AND EVERY EVENING, # 50 strip, 2 Refill(s), eRx: [facility] #[id number], USE ONE STRIP TO TEST EVERY MORNING AND EVERY EVENING Start Date: 11/23/15 Status: OrderedONETOUCH ULTRA TEST STRIPS See Instructions, USE ONE STRIP TO TEST EVERY MORNING AND EVERY EVENING, # 50 strip, 1 Refill(s), eRx: [facility] #[id number], USE ONE STRIP TO TEST EVERY MORNING AND EVERY EVENING Start Date: 08/20/15 Status: Orderedpotassium gluconate 595 mg oral tablet 1 tabs, Oral, Daily, # 100 tabs, 0 Refill(s) Start Date: 02/01/14 Status: Orderedspironolactone 25 mg oral tablet See Instructions, TAKE ONE TABLET BY MOUTH DAILY, # 90 tabs, eRx: [facility] #[id number], TAKE ONETABLET BY MOUTH DAILY Start Date: 11/19/15 Status: OrderedVitamin D3 2000 intl units oral [...] CABG x 24 10/2005 Oophorectomy5 1983 Hysterectomy6 1982 Bladder7 Colonoscopy abnormal8 1done at [facility]. No mammographic evidence of malignancy. See scanned [id number] Coaptite suburethral bulking implant.3Coaptite suburethral bulking implant.4Dr. Merced. See conversion document.5She had surgery for ovarian cyst. She reports she has one ovary remaining.6without SO. See conversion document.73 bladder ikzwjadc4Nvobygeygze polyp Social History Social History Type Response Smoking Status Never smoker Assessment and Plan No data available for this section
--- OUTSIDE RECORDS SUMMARY | 2016-11-23 09:53 | External Medical Summary | Referral Summary ---
:1940 Author Organization [facility] Address [address] [place] [address] [place] [address] Care Team Providers Name Role Phone Vipul Jaimes Primary Care Physician Encounter VC Date(s): 07/10/15 - 07/10/15 [facility] [place] [place] [address] Discharge Disposition: 01-Home or Self Care Attending Physician: Vipul Jaimes DO Admitting Physician: Vipul Jaimes DO Vital Signs Most recent to oldest [Reference Range]: 1 Peripheral Pulse Rate [60-100 bpm] 67 bpm (07/10/15 8:48 AM) Blood Pressure [90-140/60-90 mmHg] 122/65 mmHg (07/10/15 8:48 AM) SpO2 97 % (07/10/15 8:48 AM) Problem List Condition Effective Dates Status Health Status Informant Arthritis(Confirmed)1 Active patient Benign essential Active hypertension(Confirmed)2 Hypertensive Active cardiomyopathy(Confirmed)3 Coronary atherosclerosis unspec Active vessel(Confirmed)4 DDD(Confirmed)5 Active Depressive disorder, not elsewhere 2005 Active classified(Confirmed) Diabetes w/o complication type Active II(Confirmed)6 detention current use of Active insulin(Confirmed) Bilateral carotid artery Active disease(Confirmed)7 HNP(Confirmed)8 Active Hypercalcemia(Confirmed) Active Hyperparathyroidism(Confirmed) Active Low back pain(Confirmed)9 Active Lumbar spondylosis(Confirmed)10 Active Mixed hyperlipidemia(Confirmed)11 Active Morbid obesity(Confirmed) Active patient Overweight(Confirmed) Active Post-surgical Active hypothyroidism(Confirmed) Pure hypercholesterolemia(Confirmed)12 Active Sleep apnea(Confirmed) Active patient Diabetes type 2, Active uncontrolled(Confirmed) Vitamin D deficiency(Confirmed) Active [id number] conversion document.3mild concentrical VH, mild pulmo. ECHO [...] Date: 04/25/15 Status: OrderedglipiZIDE 5 mg oral tablet, extended release 5 mg 1 tabs, Oral, Daily, # 90 tabs, 1 Refill(s), Pharmacy: [facility] # [id number], 1 tabs Oral Daily,x90 days Start Date: 07/10/15 Stop Date: 01/06/16 Status: OrderedLevemir FlexPen 100 units/mL subcutaneous solution 32 units, SubCutaneous, Bedtime (once a day), 32 units at bedtime, # 2 boxes, 6 Refill(s), Pharmacy:[facility] #[id number], 32 units SubCutaneous Bedtime ( once a [...] DAILY, # 60 tabs, 2 Refill(s), Pharmacy: [facility] #[id number] Start Date: 06/01/15 Status: OrderedMiraLax 17 g, Oral, Daily, 0 Refill(s) Start Date: 04/24/15 Status: OrderedMiscellaneous DME DME Item One Touch Ultra blue test strip. To test in am and evening and prn Diag - E11.65, See Instructions, # 50 Each, 1 Refill(s), Pharmacy: [facility] #[id number], One Touch Ultra blue test strip. To test in am and evening and prn; Diag - E11.6... Start Date: 05/21/15 Status: OrderedMiscellaneous DME DME Item One Touch Ultra 2 Glucose Test Strips Test once am & once pm DX - 250.00, See Instructions, # 100 Each, 0 Refill(s), Pharmacy: [id number], One Touch Ultra 2 Glucose Test Strips; [...] DAILY, # 90 tabs, 0 Refill(s), Pharmacy: [facility] #[id number], TAKE ONE TABLET BY MOUTH ONCE DAILY Start Date: 04/06/15 Status: OrderedVitamin D3 2000 intl units oral [...] ovary remaining.5without SO. See conversion document.63 bladder [id number] polyp Social History Social History Type Response Smoking Status Never smoker Assessment and Plan Extracted from: Title: Office Visit Note Author: Vipul Jaimes DO Date: 07/10/15 Assessment/Plan Diabetes type 2, controlled 1. Her hemoglobin A1c was 6.8, her diabetes is relatively controlled. 2. Continue with Levemir at 38 units at bedtime. 3. Complete the samples of [place], because of cost and CKD stage III we will hold off on using this medication if possible. 4. He was started on glipizide 5 mg extended release, one tablet daily. Ordered: Office Visit Level 3 Est 62181 HTN (hypertension) 1. Her blood pressures well controlled. 2. Continue with metoprolol, losartan and spironolactone as previous. 3. Low salt diet recommended. Ordered: Office Visit Level 3 Est 47695 Type 2 DM with CKD stage 3 and hypertension 1. GFR consistent with CKD stage III. 2. Repeat renal panel in 3 months, if this worsens then we plan on sending her to nephrology. Ordered: Office Visit Level 3 Est 27002 Orders: glipiZIDE, 5 mg 1 tabs, Oral, Daily, # 90 tabs, 1 Refill(s), Pharmacy : [facility] #[id number], 1 tabs Oral Daily,x90 days
--- OUTSIDE RECORDS SUMMARY | 2016-11-23 09:54 | External Medical Summary | Referral Summary ---
:1940 Author Organization [facility] Address [address] [place] [address] Care Team Providers Name Role Phone Pool Marie Primary Care Physician Encounter [facility] [id number] Date(s): 07/28/14 - 07/28/14 [facility] [address] [place] [address] - [place] Discharge Diagnosis: Hyperparathyroidism Discharge Diagnosis: Diabetes type 2, uncontrolled Discharge Diagnosis: Hypercalcemia Discharge Disposition: 01-Home or Self Care Attending Physician: Masoud Baptiste MD Admitting Physician: Masoud Baptiste MD Vital Signs Most recent to oldest [Reference Range]: 1 Peripheral Pulse Rate [60-100 bpm] 62 bpm (07/28/14 11:40 AM) Blood Pressure [90-140/60-90 mmHg] 100/66 mmHg (07/28/14 11:40 AM) Problem List Condition Effective Dates Status [...] 2, Active uncontrolled(Confirmed) Vitamin D deficiency(Confirmed) Active [id number] conversion document.3mild concentrical VH, mild pulmo. ECHO 06/12/08. See conversion document.4See conversion document.5See conversion document.6See conversion document.7Rt > Lft. See conversion document.8See conversion document.9See conversion document.10foraminal narrowing L5-S1. See conversion document.11See conversion document.12See conversion document. Allergies, Adverse Reactions, Alerts No Known Medication Allergies Medications Januvia 50 mg oral tablet See Instructions, TAKE ONE TABLET BY MOUTH ONCE DAILY, # 30 tabs, eRx: [place] [address], TAKE ONE TABLET BY MOUTH ONCE DAILY Start Date: 12/25/14 Status: OrderedJanuvia 50 mg oral tablet See Instructions, TAKE ONE TABLET BY MOUTH ONCE DAILY, # 30 tabs, 2 Refill(s), eRx: [place] [address], TAKE ONE TABLET BY MOUTH ONCE DAILY Start Date: 09/15/14 Status: OrderedLevemir FlexPen 100 units/mL subcutaneous solution 30 units, SubCutaneous, Bedtime (once a day), 30 units at bedtime, # 2 boxes, 1 Refill(s), Pharmacy:[place] [facility] [address], 30 units SubCutaneous Bedtime (once a day),Instr:30 units at bedtime Start Date: 08/17/14 Status: Orderedlosartan 100 mg oral tablet See Instructions, TAKE ONE TABLET BY MOUTH ONCE DAILY, # 30 tabs, eRx: [place] [address], TAKE ONE TABLET BY MOUTH ONCE DAILY Start Date: 12/25/14 Status: Orderedlosartan 100 mg oral tablet See Instructions, TAKE ONE TABLET BY MOUTH ONCE DAILY, # 30 tabs, 2 Refill(s), eRx: [place] [address], TAKE ONE TABLET BY MOUTH ONCE DAILY Start Date: 09/15/14 Status: OrderedMetoprolol Succinate ER 50 mg oral tablet, extended release See Instructions, TAKE TWO TABLETS BY MOUTH ONCE DAILY, # 60 tabs, eRx: [place] [id number], TAKETWO TABLETS BY MOUTH ONCE DAILY Start Date: 12/25/14 Status: OrderedMiscellaneous DME DME Item One Touch Ultra 2 Glucose Test Strips Test once am & once pm DX - 250.00, See Instructions, # 100 Each, 0 Refill(s), Pharmacy: [place] [address], One Touch Ultra 2 Glucose Test Strips; [...] Instructions, # 100 Each, 0 Refill(s), Pharmacy: [facility], One Touch Ultra 2 Glucose Test [...] Refill(s) Start Date: 02/01/14 Status: Ordered Results Chemistry Most recent to oldest [Reference Range]: 1 Sodium Lvl [135-144 mEq/L] 138 mEq/L (07/28/14 12:37 PM) Potassium Lvl [3.5-5.2 mEq/L] 4.4 mEq/L (07/28/14 12:37 PM) Chloride [99-111 mEq/L] 107 mEq/L (07/28/14 12:37 PM) CO2 [22-31 mEq/L] 21 mEq/L *LOW* (07/28/14 12:37 PM) AGAP [3-20] 10 (07/28/14 12:37 PM) BUN [10-20 mg/dL] 26 mg/dL *HI* (07/28/14 12:37 PM) Glucose Lvl [70-99 mg/dL] 79 mg/dL (07/28/14 12:37 PM) Creatinine Lvl [0.57-1.11 mg/dL] 0.88 mg/dL (07/28/14 12:37 PM) eGFR [>60 mL/min] >60 mL/min 1 (07/28/14 12:37 PM) Calcium Lvl [8.9-10.5 mg/dL] 11.2 mg/dL *HI* (07/28/14 12:37 PM) Albumin Lvl [3.4-4.8 gm/dL] 4.4 gm/dL (07/28/14 12:37 PM) Phosphorus [2.3-4.7 mg/dL] 3.1 mg/dL (07/28/14 12:37 PM) Calcium Ionized [1.19-1.41 mmol/L] 1.51 mmol/L *HI* (07/28/14 12:37 PM) PTH (Parathyroid Hormone) [6.6-88.9 pg/mL] 74.8 pg/mL (07/28/14 12:37 PM) Hgb A1c [4.1-5.6 %] 5.8 % *HI* (07/28/14 12:37 PM) eAvg Glucose 119.8 mg/dL (07/28/14 12:37 PM) 1Result Comment: Multiply eGFR results by 1.21 for race. Immunizations Vaccine Date Refusal Reason influenza virus vaccine, inactivated 02/13/14 tetanus-diphth toxoids (Td) adult/adol 09/24/99 Procedures Procedure Date Related Diagnosis Body Site Parathyroidectomy or exploration of 10/16/14 parathyroid(s);.. Cystoscopy1 06/07/14 Surgery2 04/17/14 CABG x 23 10/2005 Oophorectomy4 1983 Hysterectomy5 1981 Bladder6 Colonoscopy abnormal7 1Third Coaptite suburethral bulking implant.2Coaptite suburethral bulking implant.3Dr. Merced. See conversion document.4She had surgery for ovarian cyst. She reports she has one ovary remaining.5without SO. See conversion document.63 bladder [id number] polyp Social History Social History Type Response Smoking Status Never smoker Assessment and Plan Extracted from: Title: Office Visit Note Author: Masoud Baptiste MD Date: 07/28/14 Assessment/Plan 1.Diabetes type 2, uncontrolled DC Actos. Continue same Levemir dose. Continue Januvia 50 mg daily. We'll repeat serum calcium with no indications at this point for surgery. We'll continue to monitor PTH. If calcium becomes uncontrolled we'll proceed with a sestamibi scan. Ordered: Calcium Ionized Hemoglobin A1c PTH 2.Hypercalcemia Ordered: 3.Hyperparathyroidism Ordered:
--- OUTSIDE RECORDS SUMMARY | 2016-11-23 09:54 | External Medical Summary | Referral Summary ---
:1940 [facility] Address [address] [place] [address] [place] [address] Care Team Providers Name Role Phone Vipul Jaimes Primary Care Physician Encounter [facility] Date(s): 04/25/15 - 04/25/15 [facility] [place] [place] [address] Discharge Disposition: 01-Home or Self Care Attending Physician: Vipul Jaimes DO Admitting Physician: Vipul Jaimes DO Vital Signs Most recent to oldest [Reference Range]: 1 Temperature Tympanic [36.6-38.1 degC] 36.6 degC (04/25/15 1:12 PM) Peripheral Pulse Rate [60-100 bpm] 84 bpm (04/25/15 1:12 PM) Blood Pressure [90-140/60-90 mmHg] 160/65 mmHg *HI* (04/25/15 1:12 PM) Problem List Condition Effective Dates Status Health Status Informant Arthritis(Confirmed)1 Active patient Benign essential Active hypertension(Confirmed)2 Hypertensive Active cardiomyopathy(Confirmed)3 Coronary atherosclerosis unspec Active vessel(Confirmed)4 DDD(Confirmed)5 Active Depressive disorder, not elsewhere 2005 Active classified(Confirmed) Diabetes w/o complication type Active II(Confirmed)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) Bilateral carotid artery Active disease(Confirmed)7 HNP(Confirmed)8 Active Hypercalcemia(Confirmed) Active Hyperparathyroidism(Confirmed) Active Low back pain(Confirmed)9 Active Lumbar spondylosis(Confirmed)10 Active Mixed hyperlipidemia(Confirmed)11 Active Morbid obesity(Confirmed) Active patient Overweight(Confirmed) Active Post-surgical Active hypothyroidism(Confirmed) Pure hypercholesterolemia(Confirmed)12 Active Sleep apnea(Confirmed) Active patient Diabetes type 2, Active uncontrolled(Confirmed) Vitamin D deficiency(Confirmed) Active [id number] conversion document.3mild concentrical VH, mild pulmo. ECHO [...] DAILY, # 30 tabs, 5 Refill(s), eRx: [facility], TAKE ONE TABLET BY MOUTH ONCE DAILY Start Date: 03/08/15 Status: OrderedLasix 20 mg oral tablet 20 mg 1 tabs, Oral, Daily, # 30 tabs, 0 Refill(s), Pharmacy: [facility] # [id number], 1 tabs Oral Daily Start Date: 04/25/15 Status: OrderedLevemir FlexPen 100 units/mL subcutaneous solution 32 units, SubCutaneous, Bedtime (once a day), 32 units at bedtime, # 2 boxes, 6 Refill(s), Pharmacy:[facility] #[id number], 32 units SubCutaneous Bedtime ( once a day),Instr:32 units at bedtime Start Date: 03/21/15 Status: Orderedlosartan 100 mg oral tablet See Instructions, TAKE ONE TABLET BY MOUTH ONCE DAILY, # 30 tabs, 5 Refill(s), eRx: [facility], TAKE ONE TABLET BY MOUTH ONCE DAILY Start Date: 03/08/15 Status: OrderedMetoprolol Succinate ER 50 mg oral tablet, extended release See Instructions, TAKE ONE TABLET BY MOUTH ONCE DAILY, # 60 tabs, 0 Refill(s), Pharmacy: [facility] Start Date: 03/08/15 Status: OrderedMiraLax 17 g, Oral, Daily, 0 Refill(s) Start Date: 04/24/15 Status: OrderedMiscellaneous DME DME Item One Touch Ultra blue test strip. To test in am and evening and prn Diag - E11.65, See Instructions, # 50 Each, 1 Refill(s), Pharmacy: [facility], One Touch Ultra blue test strip.To test in am and evening and prn ; Diag - E11.65,... Start Date: 03/08/15 Status: OrderedMiscellaneous DME DME Item One Touch Ultra 2 Glucose Test Strips Test once am & once pm DX - 250.00, See Instructions, # 100 Each, 0 Refill(s), Pharmacy: [facility], One Touch Ultra 2 [...] DAILY, # 90 tabs, 0 Refill(s), Pharmacy: [facility] #[id number], TAKE ONE TABLET BY MOUTH ONCE DAILY [...] Vomiting, # 30 tabs, 0 Refill(s), Pharmacy: [facility] #[id number], 1 tabs Oral q6hr,PRN:Nausea or Vomiting Start Date: 04/25/15 Stop Date: 05/24/15 Status: Ordered Results Chemistry Most recent to oldest [Reference Range]: 1 Sodium Venous [136-145 mmol/L] 134 mmol/L *LOW* (04/25/15 1:20 PM) Potassium Venous [3.5-5.1 mmol/L] 4.2 mmol/L 1 (04/25/15 1:20 PM) Calcium Ionized Venous [1.10-1.30 mmol/L] 1.17 mmol/L (04/25/15 1:20 PM) Total CO2 Venous [24-29 mmol/L] 23 mmol/L *LOW* (04/25/15 1:20 PM) Glucose Venous [70-100 mg/dL] 180 mg/dL *HI* (04/25/15 1:20 PM) BUN Venous [8-26] 9 (04/25/15 1:20 PM) Creatinine Venous [0.6-1.2 mg/dL] 1.0 mg/dL (04/25/15 1:20 PM) Venous CL [98-109 mmol/L] 95 mmol/L *LOW* (04/25/15 1:20 PM) 1Result Comment: This test was performed on [...] ovary remaining.5without SO. See conversion document.63 bladder cpyaozbe4Kogzeproodm polyp Social History Social History Type Response Smoking Status Never smoker Assessment and Plan Extracted from: Title: Transition of care, left knee replacement Author: Vipul Jaimes DO Date : 04/25/15 Assessment/Plan Constipation 1. Continue with MiraLAX twice a day. She may add prune juice. 2. Follow-up if worsening presentation. Dependent edema 1. The edema is likely secondary to the surgery. No evidence of DVT. 2. Continue elevating the leg. 3. Lasix 20 mg daily. 4. Increased potassium to one tablet twice a day. 5. Follow-up in one week for re-evaluation. Ordered: furosemide, 20 mg 1 tabs, Oral, Daily, # 30 tabs, 0 Refill(s), Pharmacy: [facility] #[id number], 1 tabs Oral Daily Trans Care Mgmt 7 Day Disch [id number] Hyponatremia 1.Basic metabolic profilerepeated today is for improvement in her sodium level. Nausea 1. Zofran 4 mg every 6 hours as needed for nausea. 2. Nausea is likely secondary to the pain medication. Vesicular eruption of skin 1. The vesicular lesion was ruptured today. DuoDERM dressing was applied. 2. Continue with elevation of the extremity. 3. Follow-up if any new concerns otherwise we will see her next week. Orders: metoprolol, See Instructions, TAKE ONE TABLET BY MOUTH ONCE DAILY, # 60 tabs, 0 Refill(s), Pharmacy: [facility]39 ondansetron, 4 mg 1 tabs, Oral, q6hr, Nausea or Vomiting, # 30 tabs, 0 Refill (s), Pharmacy: [facility] #[id number], 1 tabs Oral q6hr,PRN:Nausea or Vomiting
--- OUTSIDE RECORDS SUMMARY | 2016-11-23 09:54 | External Medical Summary | Referral Summary ---
:1940 Author Organization [facility] Address [address] [place] [address] [place] [address] Care Team Providers Name Role Phone Pool Marie Primary Care Physician Encounter [facility] Date(s): 12/11/14 - 12/11/14 [facility] [address] [place] [address] [place] [address] Discharge Disposition: 01-Home [...] 2, Active uncontrolled(Confirmed) Vitamin D deficiency(Confirmed) Active [id number] conversion document.3mild concentrical VH, mild pulmo. ECHO [...] DAILY, # 30 tabs, 2 Refill(s), eRx: [place] [address], TAKE ONE TABLET BY MOUTH ONCE DAILY Start Date: 09/15/14 Status: OrderedLevemir FlexPen 100 units/mL subcutaneous solution 30 units, SubCutaneous, Bedtime (once a day), 30 units at bedtime, # 2 boxes, 1 Refill(s), Pharmacy:[place] [address], 30 units SubCutaneous Bedtime (once a day),Instr:30 units at bedtime Start Date: 08/17/14 Status: Orderedlosartan 100 mg oral tablet See Instructions, TAKE ONE TABLET BY MOUTH ONCE DAILY, # 30 tabs, 2 Refill(s), eRx: [place] [address], TAKE ONE TABLET BY MOUTH ONCE DAILY Start Date: 09/15/14 Status: OrderedMetoprolol Succinate ER 50 mg oral tablet, extended release See Instructions, TAKE TWO TABLETS BY MOUTH ONCE DAILY, # 60 tabs, eRx: [place] [address], TAKETWO TABLETS BY MOUTH ONCE DAILY Start Date: 10/23/14 Status: OrderedMiscellaneous DME DME Item One Touch Ultra 2 Glucose Test Strips Test once am & once pm DX - 250.00, See Instructions, # 100 Each, 0 Refill(s), Pharmacy: [place] [address], One Touch Ultra 2 Glucose Test Strips; Test once am & once pm ; DX - 250.00, Supply Start Date: 08/21/14 Status: OrderedMiscellaneous DME See Instructions, One Touch Ultra 2 Glucose Test Strips; Test once am & once pm; DX - 250.02, # 100 Each, eRx: [place] [address], One Touch Ultra 2 Glucose Test Strips; Test once am & oncepm; DX - 250.00 Start Date: 10/23/14 Status: OrderedMiscellaneous DME DME Item One Touch Ultra 2 Glucose Test Strips Test once am & once pm DX - 250.00, See Instructions, # 100 Each, 0 Refill(s), Pharmacy: [place] [address], One Touch Ultra 2 Glucose Test Strips; Test once am & once pm ; DX - 250.00, Supply Start Date: 06/27/14 Status: Orderedpotassium gluconate 595 mg oral tablet 1 tabs, Oral, 5x/Day, # 100 tabs, 0 Refill(s) Start Date: 02/01/14 Status: Orderedspironolactone 25 mg oral tablet 25 mg 1 tabs, Oral, Daily, # 90 tabs, 0 Refill(s), Pharmacy: [facility], 1 tabs Oral Daily Start Date: 09/15/14 Status: OrderedVitamin D3 2000 intl units oral [...] ovary remaining.5without SO. See conversion document.63 bladder jgoicuud4Uqjqtgrefcv polyp Social History Social History Type Response Smoking Status Never smoker Assessment and Plan No data available for this section
--- OUTSIDE RECORDS SUMMARY | 2016-11-23 09:54 | External Medical Summary | Referral Summary ---
:1940 Author Organization [facility] Address [address] [place] [address] Care Team Providers Name Role Phone Vipul Jaimes Primary Care Physician Encounter [facility] Date(s): 09/05/14 - 09/05/14 [facility] [address] [place] [address]- [place] Discharge Disposition: 01-Home or Self Care Attending Physician: Natanael Yadav MD Admitting Physician: Aaliyah Perdomo MD Vital Signs No data available for this section Problem List Condition Effective Dates Status Health Status Informant Arthritis(Confirmed)1 Active patient Benign essential Active hypertension(Confirmed)2 Hypertensive Active cardiomyopathy(Confirmed)3 Coronary atherosclerosis unspec Active vessel(Confirmed)4 DDD(Confirmed)5 Active Depressive disorder, not elsewhere 2005 Active classified(Confirmed) Diabetes w/o complication type Active II(Confirmed)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) Bilateral carotid artery Active disease(Confirmed)7 HNP(Confirmed)8 Active Hypercalcemia(Confirmed) Active Hyperparathyroidism(Confirmed) Active Low back pain(Confirmed)9 Active Lumbar spondylosis(Confirmed)10 Active Mixed hyperlipidemia(Confirmed)11 Active Morbid obesity(Confirmed) Active patient Overweight(Confirmed) Active Post-surgical Active hypothyroidism(Confirmed) Pure hypercholesterolemia(Confirmed)12 Active Sleep apnea(Confirmed) Active patient Diabetes type 2, Active uncontrolled(Confirmed) Vitamin D deficiency(Confirmed) Active [id number] conversion document.3mild concentrical VH, mild pulmo. ECHO [...] DAILY, # 30 tabs, 5 Refill(s), eRx: [place] [address], TAKE ONE TABLET BY MOUTH ONCE DAILY Start Date: 03/08/15 Status: OrderedLevemir FlexPen 100 units/mL subcutaneous solution 32 units, SubCutaneous, Bedtime (once a day), 32 units at bedtime, # 2 boxes, 6 Refill(s), Pharmacy:[place] [address], 32 units SubCutaneous Bedtime (once a day),Instr:32 units at bedtime Start Date: 02/14/15 Status: Orderedlosartan 100 mg oral tablet See Instructions, TAKE ONE TABLET BY MOUTH ONCE DAILY, # 30 tabs, 5 Refill(s), eRx: [place] [address], TAKE ONE TABLET BY MOUTH ONCE DAILY Start Date: 03/08/15 Status: OrderedMetoprolol Succinate ER 50 mg oral tablet, extended release See Instructions, TAKE TWO TABLETS BY MOUTH ONCE DAILY, # 60 tabs, 0 Refill(s), Pharmacy: [place] [address] Start Date: 03/08/15 Status: OrderedMiscellaneous DME DME Item One Touch Ultra blue test strip. To test in am and evening and prn Diag - E11.65, See Instructions, # 50 Each, 1 Refill(s), Pharmacy: [place] [address], One Touch Ultra blue test strip.To test in am and evening and prn ; Diag - E11.65,... Start Date: 03/08/15 Status: OrderedMiscellaneous DME DME Item One Touch Ultra 2 Glucose Test Strips Test once am & once pm DX - 250.00, See Instructions, # 100 Each, 0 Refill(s), Pharmacy: [place] [address], One Touch Ultra 2 Glucose Test Strips; Test once am & once pm ; DX - 250.00, Supply Start Date: 06/27/14 Status: OrderedMobic 15 mg oral tablet 15 mg 1 tabs, Oral, Daily, # 15 tabs, 0 Refill(s), Pharmacy: [place] [address], 1 tabs Oral Daily Start Date: 03/15/15 Status: Orderedpotassium gluconate 595 mg oral tablet 1 tabs, Oral, 5x/Day, # 100 tabs, 0 Refill(s) Start Date: 02/01/14 Status: Orderedspironolactone 25 mg oral tablet See Instructions, TAKE ONE TABLET BY MOUTH ONCE DAILY, # 90 tabs, eRx: [facility], TAKE ONE TABLET BY [...] ovary remaining.5without SO. See conversion document.63 bladder [id number] polyp Social History Social History Type Response Smoking Status Never smoker Assessment and Plan No data available for this section
--- OUTSIDE RECORDS SUMMARY | 2016-11-23 09:54 | External Medical Summary | Referral Summary ---
:1940 Author Organization [facility] Address [address] [place] [address] Care Team Providers Name Role Phone Pool Marei Claudia Primary Care Physician Encounter [facility] [id number] Date(s): 07/28/14 - 07/28/14 [facility] [address] [place] [address] - [place] Discharge Diagnosis: Hyperparathyroidism [...] 2, Active uncontrolled(Confirmed) Vitamin D deficiency(Confirmed) Active [id number] conversion document.3mild concentrical VH, mild pulmo. ECHO 06/12/08. See conversion document.4See conversion document.5See conversion document.6See conversion document.7Rt > Lft. See conversion document.8See conversion document.9See conversion document.10foraminal narrowing L5-S1. See conversion document.11See conversion document.12See conversion document. Allergies, Adverse Reactions, Alerts No Known Medication Allergies Medications Januvia 50 mg oral tablet See Instructions, TAKE ONE TABLET BY MOUTH ONCE DAILY, # 30 tabs, eRx: [place] [address], TAKE ONE TABLET BY MOUTH ONCE DAILY Start Date: 12/25/14 Status: OrderedJanuvia 50 mg oral tablet See Instructions, TAKE ONE TABLET BY MOUTH ONCE DAILY, # 30 tabs, 2 Refill(s), eRx: [place] [address], TAKE ONE TABLET BY MOUTH ONCE DAILY Start Date: 09/15/14 Status: OrderedLevemir FlexPen 100 units/mL subcutaneous solution 30 units, SubCutaneous, Bedtime (once a day), 30 units at bedtime, # 2 boxes, 1 Refill(s), Pharmacy:[place] [address], 30 units SubCutaneous Bedtime (once a day),Instr:30 units at bedtime Start Date: 08/17/14 Status: Orderedlosartan 100 mg oral tablet See Instructions, TAKE ONE TABLET BY MOUTH ONCE DAILY, # 30 tabs, eRx: [place] [address], TAKE ONE TABLET BY MOUTH ONCE DAILY Start Date: 12/25/14 Status: Orderedlosartan 100 mg oral tablet See Instructions, TAKE ONE TABLET BY MOUTH ONCE DAILY, # 30 tabs, 2 Refill(s), eRx: [place] [address], TAKE ONE TABLET BY MOUTH ONCE DAILY Start Date: 09/15/14 Status: OrderedMetoprolol Succinate ER 50 mg oral tablet, extended release See Instructions, TAKE TWO TABLETS BY MOUTH ONCE DAILY, # 60 tabs, eRx: [place] [address], TAKETWO TABLETS BY MOUTH ONCE DAILY Start Date: 12/25/14 Status: OrderedMiscellaneous DME DME Item One Touch Ultra 2 Glucose Test Strips Test once am & once pm DX - 250.00, See Instructions, # 100 Each, 0 Refill(s), Pharmacy: [place] [address], One Touch Ultra 2 Glucose Test Strips; Test once am & once pm ; DX - 250.00, Supply Start Date: 08/21/14 Status: OrderedMiscellaneous DME See Instructions, One Touch Ultra 2 Glucose Test Strips; Test once am & once pm; DX - 250.02, # 100 Each, eRx: [facility], One Touch Ultra 2 Glucose Test Strips; Test once am & oncepm; DX - 250.00 Start Date: 10/23/14 Status: OrderedMiscellaneous DME See Instructions, One Touch Ultra 2 Glucose Test Strips; Test once am & once pm; DX - 250.00, # 100 Each, eRx: [facility], One Touch Ultra 2 Glucose Test Strips; Test once am & oncepm; DX - 250.00 Start Date: 12/25/14 Status: OrderedMiscellaneous DME DME Item One Touch Ultra 2 Glucose Test Strips Test once am & once pm DX - 250.00, See Instructions, # 100 Each, 0 Refill(s), Pharmacy: [facility], One Touch Ultra 2 Glucose Test Strips; Test once am & once pm ; DX - 250.00, Supply Start Date: 06/27/14 Status: Orderedpotassium gluconate 595 mg oral tablet 1 tabs, Oral, 5x/Day, # 100 tabs, 0 Refill(s) Start Date: 02/01/14 Status: Orderedspironolactone 25 mg oral tablet See Instructions, TAKE ONE TABLET BY MOUTH ONCE DAILY, # 90 tabs, eRx: [facility], TAKE ONE TABLET [...] ovary remaining.5without SO. See conversion document.63 bladder ueoxktaj4Zzjxoqbdqzc polyp Social History Social History Type Response [...]
--- OUTSIDE RECORDS SUMMARY | 2016-11-23 09:54 | External Medical Summary | Referral Summary ---
:1940 Author Organization [facility] Address [address] [place] [address] [place] C[place] [address] Care Team Providers Name Role Phone Vipul Jaimes Primary Care Physician Encounter [facility] Date(s): 03/21/15 - 03/21/15 [facility]AMAR Johnson [place] [place] [address]- [place] Discharge Diagnosis: Diabetes type 2, uncontrolled Discharge Diagnosis: Left knee DJD Discharge Disposition: 01-Home or Self Care Attending Physician: Vipul Jaimes DO Admitting Physician: Vipul Jaimes DO Referring Physician: Neri Bailey MD Vital Signs Most recent to oldest [Reference Range]: 1 Temperature Tympanic [36.6-38.1 degC] 35.4 degC *LOW* (03/21/15 8:16 AM) Peripheral Pulse Rate [60-100 bpm] 77 bpm (03/21/15 8:16 AM) Blood Pressure [90-140/60-90 mmHg] 124/50 mmHg (03/21/15 8:16 AM) Problem List Condition Effective Dates Status Health Status Informant Arthritis(Confirmed)1 Active patient Benign essential Active hypertension(Confirmed)2 Hypertensive Active cardiomyopathy(Confirmed)3 Coronary atherosclerosis unspec Active vessel(Confirmed)4 DDD(Confirmed)5 Active Depressive disorder, 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 Active classified(Confirmed) Diabetes w/o complication type Active II(Confirmed)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) Bilateral carotid artery Active disease(Confirmed)7 HNP(Confirmed)8 Active Hypercalcemia(Confirmed) Active Hyperparathyroidism(Confirmed) Active Low back pain(Confirmed)9 Active Lumbar spondylosis(Confirmed)10 Active Mixed hyperlipidemia(Confirmed)11 Active Morbid obesity(Confirmed) Active patient Overweight(Confirmed) Active Post-surgical Active hypothyroidism(Confirmed) Pure hypercholesterolemia(Confirmed)12 Active Sleep apnea(Confirmed) Active patient Diabetes type 2, Active uncontrolled(Confirmed) Vitamin D deficiency(Confirmed) Active [id number] conversion document.3mild concentrical VH, mild pulmo. ECHO [...] DAILY, # 30 tabs, 5 Refill(s), eRx: [facility], TAKE ONE TABLET BY MOUTH ONCE DAILY Start Date: 03/08/15 Status: OrderedLevemir FlexPen 100 units/mL subcutaneous solution 32 units, SubCutaneous, Bedtime (once a day), 32 units at bedtime, # 2 boxes, 6 Refill(s), Pharmacy:[facility] #[id number], 32 units SubCutaneous Bedtime ( once a day),Instr:32 units at bedtime Start Date: 03/21/15 Status: Orderedlosartan 100 mg oral tablet See Instructions, TAKE ONE TABLET BY MOUTH ONCE DAILY, # 30 tabs, 5 Refill(s), eRx: [facility], TAKE ONE TABLET BY MOUTH ONCE DAILY Start Date: 03/08/15 Status: OrderedMetoprolol Succinate ER 50 mg oral tablet, extended release See Instructions, TAKE TWO TABLETS BY MOUTH ONCE DAILY, # 60 tabs, 0 Refill(s), Pharmacy: [place] [id number] Start Date: 03/08/15 Status: OrderedMiscellaneous DME DME Item One Touch Ultra blue test strip. To test in am and evening and prn Diag - E11.65, See Instructions, # 50 Each, 1 Refill(s), Pharmacy: [place] [address], One Touch Ultra blue test strip.To test in am and evening and prn ; Diag - E11.65,... Start Date: 03/08/15 Status: OrderedMiscellaneous DME DME Item One Touch Ultra 2 Glucose Test Strips Test once am & once pm DX - 250.00, See Instructions, # 100 Each, 0 Refill(s), Pharmacy: [facility], One Touch Ultra 2 Glucose Test Strips; Test once am & once pm ; DX - 250.00, Supply Start Date: 06/27/14 Status: Orderedpotassium gluconate 595 mg oral tablet 1 tabs, Oral, 5x/Day, # 100 tabs, 0 Refill(s) Start Date: 02/01/14 Status: Orderedspironolactone 25 mg oral tablet See Instructions, TAKE ONE TABLET BY MOUTH ONCE DAILY, # 90 tabs, eRx: [facility], TAKE ONE TABLET BY MOUTH ONCE DAILY Start Date: 12/25/14 Status: OrderedVitamin D3 2000 intl units oral tablet tabs, Oral, Daily, 0 Refill(s) Start Date: 02/01/14 Status: Ordered Results Hematology Most recent to oldest [Reference Range]: 1 WBC [4.8-10.8 10*3/uL] 8.6 10*3/uL (03/21/15 9:27 AM) RBC [4.00-5.20] 4.64 (03/21/15 9:27 AM) Hgb [12.0-16.0 gm/dL] 13.5 gm/dL (03/21/15 9:27 AM) Hct [37.0-47.0 %] 40.5 % (03/21/15 9:27 AM) MCV [82.0-99.0 fL] 87.3 fL (03/21/15 9:27 AM) MCH [27.0-32.0 pg] 29.1 pg (03/21/15 9:27 AM) MCHC [32.0-36.0 gm/dL] 33.3 gm/dL (03/21/15 9:27 AM) RDW [11.5-14.5 %] 12.1 % (03/21/15 9:27 AM) Platelet [150-400 10*3/uL] 322 10*3/uL (03/21/15 9:27 AM) MPV [8.8-14.8 fL] 9.6 fL (03/21/15 9:27 AM) Immature Granulocytes [0.0-1.0 %] 0.2 % (03/21/15 9:27 AM) Neutrophils [51-75 %] 62 % (03/21/15 9:27 AM) Lymphocytes [20-46 %] 26 % (03/21/15 9:27 AM) Monocytes [4-11 %] 10 % (03/21/15 9:27 AM) Eosinophils [0-4 %] 2 % (03/21/15 9:27 AM) Basophils [0-2 %] 0 % (03/21/15 9:27 AM) Neutro Absolute [1.90-7.00 10*3] 5.34 10*3 (03/21/15 9:27 AM) Lymph Absolute [0.80-3.30 10*3] 2.22 10*3 (03/21/15 9:27 AM) Jay Absolute [0.30-1.00 10*3] 0.83 10*3 (03/21/15 9:27 AM) Eos Absolute [0.00-0.50 10*3] 0.16 10*3 (03/21/15 9:27 AM) Baso Absolute [0.00-0.20 10*3] 0.03 10*3 (03/21/15 9:27 AM) Chemistry Most recent to oldest [Reference Range]: 1 Sodium Lvl [135-144 mEq/L] 137 mEq/L (03/21/15 9:27 AM) Potassium Lvl [3.5-5.2 mEq/L] 4.6 mEq/L (03/21/15 9:27 AM) Chloride [99-111 mEq/L] 100 mEq/L (03/21/15 9:27 AM) CO2 [22-31 mEq/L] 30 mEq/L (03/21/15 9:27 AM) AGAP [3-20] 7 (03/21/15 9:27 AM) BUN [10-20 mg/dL] 16 mg/dL (03/21/15 9:27 AM) Glucose Lvl [70-99 mg/dL] 182 mg/dL *HI* (03/21/15 9:27 AM) Creatinine Lvl [0.57-1.11 mg/dL] 1.02 mg/dL (03/21/15 9:27 AM) eGFR [>60 mL/min] 53 mL/min 1 *ABN* (03/21/15 9:27 AM) Calcium Lvl [8.9-10.5 mg/dL] 10.3 mg/dL (03/21/15 9:27 AM) Albumin Lvl [3.4-4.8 gm/dL] 4.4 gm/dL (03/21/15 9:27 AM) Total Protein [6.2-8.1 gm/dL] 7.0 gm/dL (03/21/15 9:27 AM) Globulin [1.8-4.0 gm/dL] 2.6 gm/dL (03/21/15 9:27 AM) ALT [0-55 U/L] 19 U/L (03/21/15 9:27 AM) AST [5-34 U/L] 17 U/L (03/21/15 9:27 AM) Alk Phos [40-150 U/L] 63 U/L (03/21/15 9:27 AM) Bili Total [0.2-1.2 mg/dL] 0.7 mg/dL (03/21/15 9:27 AM) 1Result Comment: Multiply eGFR results by [...] ovary remaining.5without SO. See conversion document.63 bladder [id number] polyp Social History Social History Type Response Smoking Status Never smoker Assessment and Plan Extracted from: Title: preoperative visit Author: Vipul Jaimes DO Date: 03/21/15 Assessment/Plan Diabetes type 2, uncontrolled Her diabetes is relatively controlled. Continue with basal insulin as previous. Continue checking blood sugars fasting and 2 hours postprandial. Follow-up in 3 monthsfor diabetes management. Ordered: insulin detemir, 32 units, SubCutaneous, Bedtime (once a day), 32 units at bedtime, # 2 boxes, 6 Refill(s), [facility]: [facility] #[id number], 32 units SubCutaneous Bedtime (once a day),Instr:32 units at bedtime Office Visit Level 5 Est 09863 Left knee DJD She has significant degenerative changesof the left knee. Agree with the need forknee replacement. Continue with Tylenol as needed for pain. Ordered: Office Visit Level 5 Est 93743 Pre-op testing 1. Labs and imaging ordered today, report is pending. 2. EKG is for normal sinus rhythm. 3. Once her get the imaging reports and labs, if they're all normal then we should be able to get this patient for surgery. Ordered: Comprehensive Metabolic Panel Office Visit Level 5 Est 57986
--- OUTSIDE RECORDS SUMMARY | 2016-11-23 09:54 | External Medical Summary | Referral Summary ---
:1940 Author Organization [facility]AMAR [facility], [place] Address [address] [place] [address] Care Team Providers Name Role Phone Pool Marie Claudia Primary Care Physician Encounter [facility] [id number] Date(s): 07/28/14 - 07/28/14 [facility] [address] [place] [address] - [place] Discharge Diagnosis: Hyperparathyroidism [...] 2, Active uncontrolled(Confirmed) Vitamin D deficiency(Confirmed) Active [id number] conversion document.3mild concentrical VH, mild pulmo. ECHO 06/12/08. See conversion document.4See conversion document.5See conversion document.6See conversion document.7Rt > Lft. See conversion document.8See conversion document.9See conversion document.10foraminal narrowing L5-S1. See conversion document.11See conversion document.12See conversion document. Allergies, Adverse Reactions, Alerts No Known Medication Allergies Medications Januvia 50 mg oral tablet See Instructions, TAKE ONE TABLET BY MOUTH ONCE DAILY, # 30 tabs, eRx: [place] [address], TAKE ONE TABLET BY MOUTH ONCE DAILY Start Date: 12/25/14 Status: OrderedJanuvia 50 mg oral tablet See Instructions, TAKE ONE TABLET BY MOUTH ONCE DAILY, # 30 tabs, 2 Refill(s), eRx: [place] [address], TAKE ONE TABLET BY MOUTH ONCE DAILY Start Date: 09/15/14 Status: OrderedLevemir FlexPen 100 units/mL subcutaneous solution 30 units, SubCutaneous, Bedtime (once a day), 30 units at bedtime, # 2 boxes, 1 Refill(s), Pharmacy:[place] [address], 30 units SubCutaneous Bedtime (once a day),Instr:30 units at bedtime Start Date: 08/17/14 Status: Orderedlosartan 100 mg oral tablet See Instructions, TAKE ONE TABLET BY MOUTH ONCE DAILY, # 30 tabs, eRx: [place] [address], TAKE ONE TABLET BY MOUTH ONCE DAILY Start Date: 12/25/14 Status: Orderedlosartan 100 mg oral tablet See Instructions, TAKE ONE TABLET BY MOUTH ONCE DAILY, # 30 tabs, 2 Refill(s), eRx: [place] [address], TAKE ONE TABLET BY MOUTH ONCE DAILY Start Date: 09/15/14 Status: OrderedMetoprolol Succinate ER 50 mg oral tablet, extended release See Instructions, TAKE TWO TABLETS BY MOUTH ONCE DAILY, # 60 tabs, eRx: [place] [address], TAKETWO TABLETS BY MOUTH ONCE DAILY Start Date: 12/25/14 Status: OrderedMiscellaneous DME DME Item One Touch Ultra 2 Glucose Test Strips Test once am & once pm DX - 250.00, See Instructions, # 100 Each, 0 Refill(s), Pharmacy: [place] [address], One Touch Ultra 2 Glucose Test Strips; Test once am & once pm ; DX - 250.00, Supply Start Date: 08/21/14 Status: OrderedMiscellaneous DME See Instructions, One Touch Ultra 2 Glucose Test Strips; Test once am & once pm; DX - 250.02, # 100 Each, eRx: [facility], One Touch Ultra 2 Glucose Test Strips; Test once am & oncepm; DX - 250.00 Start Date: 10/23/14 Status: OrderedMiscellaneous DME See Instructions, One Touch Ultra 2 Glucose Test Strips; Test once am & once pm; DX - 250.00, # 100 Each, eRx: [facility], One Touch Ultra 2 Glucose Test Strips; Test once am & oncepm; DX - 250.00 Start Date: 12/25/14 Status: OrderedMiscellaneous DME DME Item One Touch Ultra 2 Glucose Test Strips Test once am & once pm DX - 250.00, See Instructions, # 100 Each, 0 Refill(s), Pharmacy: [facility], One Touch Ultra 2 Glucose Test Strips; Test once am & once pm ; DX - 250.00, Supply Start Date: 06/27/14 Status: Orderedpotassium gluconate 595 mg oral tablet 1 tabs, Oral, 5x/Day, # 100 tabs, 0 Refill(s) Start Date: 02/01/14 Status: Orderedspironolactone 25 mg oral tablet See Instructions, TAKE ONE TABLET BY MOUTH ONCE DAILY, # 90 tabs, eRx: [facility], TAKE ONE TABLET [...] ovary remaining.5without SO. See conversion document.63 bladder [id number] polyp Social History Social History Type Response [...]
--- OUTSIDE RECORDS SUMMARY | 2016-11-23 09:54 | External Medical Summary | Referral Summary ---
:1940 Author Care Team Providers Name Role Phone Pool Marie Primary Care Physician Encounter [facility] [id number] Date(s): 06/22/14 - 06/22/14 [facility] [place] [address] [place] [address] [place] [address] Discharge Diagnosis: DANIELITO (stress urinary incontinence, female) Discharge Disposition: Home or Self Care Attending Physician: Chapito Jose JR, MD Admitting Physician: Chapito Jose JR, MD Referring Physician: Pool Marie MD Vital Signs Most recent to oldest [Reference Range]: 1 Blood Pressure [90-140/60-90 mmHg] 118/62 mmHg (06/22/14 2:04 PM) Problem List Condition Effective Dates Status Health Status Informant Benign essential Active hypertension(Confirmed)1 Hypertensive Active cardiomyopathy(Confirmed)2 Coronary atherosclerosis unspec Active vessel(Confirmed)3 DDD(Confirmed)4 Active Depressive disorder, not elsewhere 2005 Active classified(Confirmed) Diabetes w/o complication type Active II(Confirmed)5 Bilateral carotid artery Active disease(Confirmed)6 HNP(Confirmed)7 Active Low back pain(Confirmed)8 Active Lumbar spondylosis(Confirmed)9 Active Mixed hyperlipidemia(Confirmed)10 Active Overweight(Confirmed) Active Pure hypercholesterolemia(Confirmed)11 Active 1See conversion document.2mild concentrical VH, mild pulmo. ECHO 06/12/08. See conversion document.3See conversion document.4See conversion document.5See conversion document.6Rt > Lft. See conversion document.7See conversion document.8See conversion document.9foraminal narrowing L5-S1. See conversion document.10See conversion document.11See conversion document. Allergies, Adverse Reactions, Alerts No Known Medication Allergies Medications Actos 15 mg oral tablet 1 tabs, Oral, Daily, # 30 tabs, 3 Refill(s), Pharmacy: [email or web address], 1 tabs Oral Daily Start Date: 04/24/14 Status: OrderedJanuvia 50 mg oral tablet 1 tabs, Oral, Daily, # 30 tabs, 3 Refill(s), Pharmacy: [facility] Start Date: 04/24/14 Status: OrderedLevemir FlexPen 100 units/mL subcutaneous solution 30 units, SubCutaneous, Bedtime (once a day), 30 units at bedtime, # 2 boxes, 1 Refill(s) Special Instructions: 30 units at bedtime Start Date: 05/10/14 Status: Orderedlosartan 100 mg oral tablet 1 tabs, Oral, Daily, # 30 tabs, 3 Refill(s), Pharmacy: [facility], 1 tabs Oral Daily Start Date: 04/24/14 Status: Orderedmetoprolol succinate 50 mg oral tablet, extended release 2 tabs, Oral, Daily, # 60 tabs, 1 Refill(s), Pharmacy: [facility] Start Date: 06/13/14 Status: OrderedMiscellaneous DME DME Item One Touch Ultra 2 Glucose Test Strips Test once am & once pm DX - 250.00, See Instructions, # 100 Each, 0 Refill(s), Pharmacy: [place] [id number], One Touch Ultra 2 Glucose Test Strips; Test once am & once pm ; DX - 250.00, Supply Special Instructions: One Touch Ultra 2 Glucose Test Strips Test once am & amp; once pm DX - 250.00 Start Date: 05/09/14 Status: Orderedpotassium gluconate 595 mg oral tablet 1 tabs, Oral, 5x/Day, # 100 tabs, 0 Refill(s) Start Date: 02/01/14 Status: Orderedspironolactone 25 mg oral tablet 1 tabs, Oral, Daily, # 90 tabs, 0 Refill(s), Pharmacy: 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 Merced. See conversion document.4She had surgery for ovarian cyst. She reports she has one ovary remaining.5without SO. See conversion document.6Adenomatous polyp Social History Social History Type Response Smoking Status Never smoker Assessment and Plan Extracted from: Title: Ambulatory Patient Education Author: Chapito Jose JR, MD Date: Follow Up With: Where: When: Pool Marie [address] [place] [address] Drive; [place] [address] Business (1) Within 3 to 5 days Comments: Follow Up With: Where: When: Chapito Eid[address]; [place] [address] Business (1) In 6 months 12/22/2014 Comments: Extracted from: Title: Office Visit Note Author: Chapito Jose JR, MD Date: 06/22/14 Assessment/Plan DANIELITO (stress urinary incontinence, female) She had her third suburethral bulking implant with good results. Continue doing Kegel's pelvic floor exercises and reduce some more weight. Recheck in my office in 6 months or sooner if needed. . 15 minute face to face visit with 2/3 of the visit devoted to counseling. Ordered: Office Visit Level 3 Est 91733
--- OUTSIDE RECORDS SUMMARY | 2016-11-23 09:55 | External Medical Summary | Referral Summary ---
:1940 Author Organization [facility] Address [address] [place] [address] [place] [address] Care Team Providers Name Role Phone Vipul Jaimes Primary Care Physician Encounter [facility] Date(s): 07/03/15 - 07/03/15 [facility] [place] [place] [address] [place] Discharge Disposition: 01-Home or Self Care Attending Physician: Vipul Jaimes DO Admitting Physician: Vipul Jaimes DO Vital Signs Most recent to oldest [Reference Range]: 1 Peripheral Pulse Rate [60-100 bpm] 94 bpm (07/03/15 1:55 PM) Blood Pressure [90-140/60-90 mmHg] 120/54 mmHg (07/03/15 1:55 PM) Problem List Condition Effective Dates Status Health Status Informant Arthritis(Confirmed)1 Active patient Benign essential Active hypertension(Confirmed)2 Hypertensive Active cardiomyopathy(Confirmed)3 Coronary atherosclerosis unspec Active vessel(Confirmed)4 DDD(Confirmed)5 Active Depressive disorder, 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 Active classified(Confirmed) Diabetes w/o complication type Active II(Confirmed)6 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) Bilateral carotid artery Active disease(Confirmed)7 HNP(Confirmed)8 Active Hypercalcemia(Confirmed) Active Hyperparathyroidism(Confirmed) Active Low back pain(Confirmed)9 Active Lumbar spondylosis(Confirmed)10 Active Mixed hyperlipidemia(Confirmed)11 Active Morbid obesity(Confirmed) Active patient Overweight(Confirmed) Active Post-surgical Active hypothyroidism(Confirmed) Pure hypercholesterolemia(Confirmed)12 Active Sleep apnea(Confirmed) Active patient Diabetes type 2, Active uncontrolled(Confirmed) Vitamin D deficiency(Confirmed) Active [id number] conversion document.3mild concentrical VH, mild pulmo. ECHO [...] DAILY, # 30 tabs, 5 Refill(s), eRx: [facility], TAKE ONE TABLET BY MOUTH ONCE DAILY Start Date: 03/08/15 Status: OrderedLasix 20 mg oral tablet 20 mg 1 tabs, Oral, Daily, # 30 tabs, 0 Refill(s), Pharmacy: [facility] # [id number], 1 tabs Oral Daily Start Date: 04/25/15 Status: OrderedLevemir FlexPen 100 units/mL subcutaneous solution 32 units, SubCutaneous, Bedtime (once a day), 32 units at bedtime, # 2 boxes, 6 Refill(s), Pharmacy:[facility] #[id number], 32 units SubCutaneous Bedtime ( once a day),Instr:32 units at bedtime Start Date: 03/21/15 Status: Orderedlosartan 100 mg oral tablet See Instructions, TAKE ONE TABLET BY MOUTH ONCE DAILY, # 30 tabs, 5 Refill(s), eRx: [facility], TAKE ONE TABLET BY MOUTH ONCE DAILY Start Date: 03/08/15 Status: OrderedMetoprolol Succinate ER 50 mg oral tablet, extended release See Instructions, TAKE ONE TABLET BY MOUTH ONCE DAILY, # 60 tabs, 2 Refill(s), Pharmacy: [facility] #[id number] Start Date: 06/01/15 Status: OrderedMiraLax 17 g, Oral, Daily, 0 Refill(s) Start Date: 04/24/15 Status: OrderedMiscellaneous DME DME Item One Touch Ultra blue test strip. To test in am and evening and prn Diag - E11.65, See Instructions, # 50 Each, 1 Refill(s), Pharmacy: [facility] #[id number], One Touch Ultra blue test strip. To test in am and evening and prn; Diag - E11.6... Start Date: 05/21/15 Status: OrderedMiscellaneous DME DME Item One Touch Ultra 2 Glucose Test Strips Test once am & once pm DX - 250.00, See Instructions, # 100 Each, 0 Refill(s), Pharmacy: [facility], One Touch Ultra [...] DAILY, # 90 tabs, 0 Refill(s), Pharmacy: [facility] #[id number], TAKE ONE TABLET BY MOUTH ONCE DAILY Start Date: 04/06/15 Status: OrderedVitamin D3 2000 intl units oral tablet tabs, Oral, Daily, 0 Refill(s) Start Date: 02/01/14 Status: Ordered Results Chemistry Most recent to oldest [Reference Range]: 1 Sodium Lvl [135-144 mEq/L] 138 mEq/L (07/03/15 2:55 PM) Potassium Lvl [3.5-5.2 mEq/L] 4.3 mEq/L (07/03/15 2:55 PM) Chloride [99-111 mEq/L] 104 mEq/L (07/03/15 2:55 PM) CO2 [22-31 mEq/L] 28 mEq/L (07/03/15 2:55 PM) AGAP [3-20] 6 (07/03/15 2:55 PM) BUN [10-20 mg/dL] 16 mg/dL (07/03/15 2:55 PM) Glucose Lvl [70-99 mg/dL] 169 mg/dL *HI* (07/03/15 2:55 PM) Creatinine Lvl [0.57-1.11 mg/dL] 1.01 mg/dL (07/03/15 2:55 PM) eGFR [>60 mL/min] 54 mL/min 1 *ABN* (07/03/15 2:55 PM) Calcium Lvl [8.9-10.5 mg/dL] 10.0 mg/dL (07/03/15 2:55 PM) Albumin Lvl [3.4-4.8 gm/dL] 4.6 gm/dL (07/03/15 2:55 PM) Total Protein [6.2-8.1 gm/dL] 6.8 gm/dL (07/03/15 2:55 PM) Globulin [1.8-4.0 gm/dL] 2.2 gm/dL (07/03/15 2:55 PM) ALT [0-55 U/L] 15 U/L (07/03/15 2:55 PM) AST [5-34 U/L] 17 U/L (07/03/15 2:55 PM) Alk Phos [40-150 U/L] 83 U/L (07/03/15 2:55 PM) Bili Total [0.2-1.2 mg/dL] 0.5 mg/dL (07/03/15 2:55 PM) Hgb A1c [4.1-5.6 %] 6.8 % *HI* (07/03/15 2:55 PM) eAvg Glucose 148.5 mg/dL (07/03/15 2:55 PM) 1Result Comment: Multiply eGFR results by [...] ovary remaining.5without SO. See conversion document.63 bladder [id number] polyp Social History Social History Type Response Smoking Status Never smoker Assessment and Plan Extracted from: Title: Office Visit Note Author: Vipul Jaimes DO Date: 07/03/15 Assessment/Plan Diabetes type 2, uncontrolled 1. Increase Levemir to 38 units at bedtime. 2. Increase Januvia to 100 mg daily. 3. Recheck hemoglobin A1c and complete metabolic profile today. 4. Follow-up next week to review results, we will titrate the Levemir to get better control of her blood sugars. 5. We may consider discontinuing Januvia and starting Victoza. Ordered: Comprehensive Metabolic Panel Hemoglobin A1c Office Visit Level 4 Est 45913
--- OUTSIDE RECORDS SUMMARY | 2016-11-23 09:55 | External Medical Summary | Referral Summary ---
:1940 Author Organization [facility] Address [address] [place] [address] Care Team Providers Name Role Phone Theodore Vipul Primary Care Physician Encounter [facility] [id number] Date(s): 12/31/15 - 12/31/15 [facility] [address] [place] [address] - [place] Discharge Diagnosis: Diabetes type 2, uncontrolled Discharge Diagnosis: Mixed hyperlipidemia Discharge Diagnosis: FPC current use of insulin Discharge Diagnosis: Benign essential hypertension Discharge Diagnosis: Screening for thyroid disorder Discharge Disposition: 01-Home or Self Care Attending Physician: Shonna Lopez APRN Admitting Physician: Shonna Lopez APRN Vital Signs Most recent to oldest [Reference Range]: 1 Peripheral Pulse Rate [60-100 bpm] 72 bpm (12/31/15 2:56 PM) Blood Pressure [90-140/60-90 mmHg] 120/68 mmHg (12/31/15 2:56 PM) Problem List Condition Effective Dates Status Health Status Informant Arthritis(Confirmed)1 Active patient Benign essential Active hypertension(Confirmed)2 Hypertensive Active cardiomyopathy(Confirmed)3 Coronary atherosclerosis unspec Active vessel(Confirmed)4 DDD(Confirmed)5 Active Depressive disorder, 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 Active classified(Confirmed) Diabetes w/o complication type Active II(Confirmed)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) Bilateral carotid artery Active disease(Confirmed)7 HNP(Confirmed)8 Active Hypercalcemia(Confirmed) Active Hyperparathyroidism(Confirmed) Active Low back pain(Confirmed)9 Active Lumbar spondylosis(Confirmed)10 Active Mixed hyperlipidemia(Confirmed)11 Active Morbid obesity(Confirmed) Active patient Overweight(Confirmed) Active Post-surgical Active hypothyroidism(Confirmed) Pure hypercholesterolemia(Confirmed)12 Active Sleep apnea(Confirmed) Active patient Diabetes type 2, Active uncontrolled(Confirmed) Vitamin D deficiency(Confirmed) Active [id number] conversion document.3mild concentrical VH, mild pulmo. ECHO [...] DAILY, # 30 tabs, 2 Refill(s), eRx: [facility] #[id number], TAKE ONE TABLET BY MOUTH DAILY Start Date: 12/28/15 Status: OrderedEcotrin mg, Oral, Daily, 0 Refill(s) Start Date: 04/25/15 Status: OrderedglipiZIDE 5 mg oral tablet 5 mg 1 tabs, Oral, BID, # 180 tabs, 3 Refill(s), Pharmacy: [facility] # [id number], 1 tabs Oral BID,x90 days Start Date: 10/10/15 Stop Date: 10/04/16 Status: OrderedLevemir FlexPen 100 units/mL subcutaneous solution 32 units, SubCutaneous, Bedtime (once a day), 20 units at bedtime, # 2 boxes, 6 Refill(s), Pharmacy:[facility] #[id number], 32 units SubCutaneous Bedtime ( once a day),Instr:32 units at bedtime Start Date: 03/21/15 Status: Orderedlosartan 100 mg oral tablet See Instructions, TAKE ONE TABLET BY MOUTH DAILY, # 30 tabs, 2 Refill(s), eRx: [facility] #[id number], TAKE ONE TABLET BY MOUTH DAILY Start Date: 11/13/15 Status: OrderedMetoprolol Succinate ER 50 mg oral tablet, extended release See Instructions, TAKE ONE TABLET BY MOUTH DAILY, # 60 tabs, 2 Refill(s), eRx: [facility] #[id number], TAKE ONE TABLET BY MOUTH DAILY Start [...] AND EVERY EVENING, # 50 strip, eRx: [facility] #[id number], USE ONE STRIP TO TEST EVERY MORNING AND EVERY EVENING Start Date: 10/26/15 Status: OrderedONETOUCH ULTRA TEST STRIPS See Instructions, USE ONE STRIP TO TEST EVERY MORNING AND EVERY EVENING, # 50 strip, 2 Refill(s), eRx: [facility] #[id number], USE ONE STRIP TO TEST EVERY MORNING AND EVERY EVENING Start Date: 11/23/15 Status: OrderedONETOUCH ULTRA TEST STRIPS See Instructions, USE ONE STRIP TO TEST EVERY MORNING AND EVERY EVENING, # 50 strip, 1 Refill(s), eRx: [facility] #[id number], USE ONE STRIP TO TEST EVERY MORNING AND EVERY EVENING Start Date: 08/20/15 Status: Orderedpotassium gluconate 595 mg oral tablet 1 tabs, Oral, Daily, # 100 tabs, 0 Refill(s) Start Date: 02/01/14 Status: Orderedspironolactone 25 mg oral tablet See Instructions, TAKE ONE TABLET BY MOUTH DAILY, # 90 tabs, eRx: [facility] #[id number], TAKE ONETABLET BY MOUTH DAILY Start Date: [...] Hysterectomy6 1981 Bladder7 Colonoscopy abnormal8 1done at [facility]. No mammographic evidence of malignancy. See scanned [id number] Coaptite suburethral bulking implant.3Coaptite suburethral bulking implant.4Dr. Merced. See conversion document.5She had surgery for ovarian cyst. She reports she has one ovary remaining.6without SO. See conversion document.73 bladder [id number] polyp Social History Social History Type Response Smoking Status Never smoker Assessment and Plan Extracted from: Title: Office Visit Note Author: Shonna Lopez ALTO SINGER Date: 12/31/15 Assessment/Plan 1.Diabetes type 2, uncontrolled [...] bedtime, # 2 boxes, 6 Refill(s), Pharmacy: [facility] #[id number], 32 units SubCutaneous Bedtime (once a day),Instr:32 units at bedtime Free T4 Hemoglobin A1c Office Visit Level 4 Est 47634 Return to Clinic [facility] 3rd Generation 2.FPC current use of insulin Ordered: insulin detemir, 32 units, SubCutaneous, Bedtime (once a day), 20 units at bedtime, # 2 boxes, 6 Refill(s), Pharmacy: [facility] #[id number], 32 units SubCutaneous Bedtime (once a day),Instr:32 units at bedtime Free T4 Hemoglobin A1c Office Visit Level 4 Est 22830 Return to Clinic [facility] 3rd Generation 3.Benign essential hypertension Ordered: Free T4 Hemoglobin A1c Office Visit Level 4 Est 64876 Return to Clinic [facility] 3rd Generation 4.Mixed hyperlipidemia Ordered: Free T4 Hemoglobin A1c Office Visit Level 4 Est 91164 Return to Clinic [facility] 3rd Generation 5.Screening for thyroid disorder Ordered: Free T4 Hemoglobin A1c Office Visit Level 4 Est 68760 Return to Clinic [facility] 3rd Generation Extracted from: Title: Ambulatory Patient Education Author: Shonna Lopez APRN Date: Home Health Care Diabetes and Exercise Exercising [...] enjoy, and set realistic goals. To exercise safely , you should begin practicing any new physical activity slowly, and gradually increase the intensity of the exercise over ti me. Your health care provider or manager diabetes can help create an activity plan that [...] Released: 05/08/2004 Document Revised: 07/03/2015 Document Reviewed: 07/26/2013 [employer] Patient Education 2016 [employer] No follow up information was provided. Referrals to Other Providers Referred by: Shonna Lopez APRN
--- OUTSIDE RECORDS SUMMARY | 2016-11-23 09:55 | External Medical Summary | Referral Summary ---
:1940 Author Organization [facility] Address [address] [place] [address] Care Team Providers Name Role Phone Pool Marie Claudia Primary Care Physician Encounter [facility] [id number] Date(s): 07/28/14 - 07/28/14 [facility] [address] [place] [address] - [place] Discharge Diagnosis: Hyperparathyroidism [...] 2, Active uncontrolled(Confirmed) Vitamin D deficiency(Confirmed) Active [id number] conversion document.3mild concentrical VH, mild pulmo. ECHO 06/12/08. See conversion document.4See conversion document.5See conversion document.6See conversion document.7Rt > Lft. See conversion document.8See conversion document.9See conversion document.10foraminal narrowing L5-S1. See conversion document.11See conversion document.12See conversion document. Allergies, Adverse Reactions, Alerts No Known Medication Allergies Medications Januvia 50 mg oral tablet See Instructions, TAKE ONE TABLET BY MOUTH ONCE DAILY, # 30 tabs, eRx: [place] [facility] [id number], TAKE ONE TABLET BY MOUTH ONCE DAILY Start Date: 01/22/15 Status: OrderedLevemir FlexPen 100 units/mL subcutaneous solution 30 units, SubCutaneous, Bedtime (once a day), 30 units at bedtime, # 2 boxes, 1 Refill(s), Pharmacy:[place] [id number], 30 units SubCutaneous Bedtime (once a day),Instr:30 units at bedtime Start Date: 08/17/14 Status: Orderedlosartan 100 mg oral tablet See Instructions, TAKE ONE TABLET BY MOUTH ONCE DAILY, # 30 tabs, eRx: [place] [id number], TAKE ONE TABLET BY MOUTH ONCE DAILY Start Date: 01/22/15 Status: OrderedMetoprolol Succinate ER 50 mg oral tablet, extended release See Instructions, TAKE TWO TABLETS BY MOUTH ONCE DAILY, # 60 tabs, eRx: [place] [id number], TAKETWO TABLETS BY MOUTH ONCE DAILY Start Date: 12/25/14 Status: OrderedMiscellaneous DME DME Item One Touch Ultra 2 Glucose Test Strips Test once am & once pm DX - 250.00, See Instructions, # 100 Each, 0 Refill(s), Pharmacy: [place] [id number], One Touch Ultra 2 Glucose Test Strips; Test once am & once pm ; DX - 250.00, Supply Start Date: 08/21/14 Status: OrderedMiscellaneous DME See Instructions, One Touch Ultra 2 Glucose Test Strips; Test once am & once pm; DX - 250.02, # 100 Each, eRx: [place] [id number], One Touch Ultra 2 Glucose Test Strips; Test once am & oncepm; DX - 250.00 Start Date: 10/23/14 Status: OrderedMiscellaneous DME See Instructions, One Touch Ultra 2 Glucose Test Strips; Test once am & once pm; DX - 250.00, # 100 Each, eRx: [facility], One Touch Ultra 2 Glucose Test Strips; Test once am & oncepm; DX - 250.00 Start Date: 12/25/14 Status: OrderedMiscellaneous DME DME Item One Touch Ultra 2 Glucose Test Strips Test once am & once pm DX - 250.00, See Instructions, # 100 Each, 0 Refill(s), Pharmacy: [facility], One Touch Ultra 2 Glucose Test Strips; Test once am & once pm ; DX - 250.00, Supply Start Date: 06/27/14 Status: Orderedpotassium gluconate 595 mg oral tablet 1 tabs, Oral, 5x/Day, # 100 tabs, 0 Refill(s) Start Date: 02/01/14 Status: Orderedspironolactone 25 mg oral tablet See Instructions, TAKE ONE TABLET BY MOUTH ONCE DAILY, # 90 tabs, eRx: [facility], TAKE ONE TABLET BY MOUTH [...] ovary remaining.5without SO. See conversion document.63 bladder [id number] polyp Social History Social History Type Response [...]
--- OUTSIDE RECORDS SUMMARY | 2016-11-23 09:55 | External Medical Summary | Referral Summary ---
:1940 Author [facility] Address [address] [place] [address] [place] [address] Care Team Providers Name Role Phone Vipul Jaimes Primary Care Physician Encounter [facility] Date(s): 11/01/15 - 11/01/15 [facility] [place] [address] Discharge Diagnosis: Reactive inflammatory arthritis Discharge Diagnosis: Anxiety and depression Discharge Disposition: 01-Home or Self Care Attending Physician: Vipul Jaimes DO Vital Signs Most recent to oldest [Reference Range]: 1 Temperature Tympanic [36.6-38.1 degC] 36.3 degC *LOW* (11/01/15 10:11 AM) Peripheral Pulse Rate [60-100 bpm] 68 bpm (11/01/15 10:11 AM) Blood Pressure [90-140/60-90 mmHg] 118/52 mmHg (11/01/15 10:11 AM) Problem List Condition Effective Dates Status Health Status Informant Arthritis(Confirmed)1 Active patient Benign essential Active hypertension(Confirmed)2 Hypertensive Active cardiomyopathy(Confirmed)3 Coronary atherosclerosis unspec Active vessel(Confirmed)4 DDD(Confirmed)5 Active Depressive disorder, 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 Active classified(Confirmed) Diabetes w/o complication type Active II(Confirmed)6 assisted current use of Active insulin(Confirmed) Bilateral carotid artery Active disease(Confirmed)7 HNP(Confirmed)8 Active Hypercalcemia(Confirmed) Active Hyperparathyroidism(Confirmed) Active Low back pain(Confirmed)9 Active Lumbar spondylosis(Confirmed)10 Active Mixed hyperlipidemia(Confirmed)11 Active Morbid obesity(Confirmed) Active patient Overweight(Confirmed) Active Post-surgical Active hypothyroidism(Confirmed) Pure hypercholesterolemia(Confirmed)12 Active Sleep apnea(Confirmed) Active patient Diabetes type 2, Active uncontrolled(Confirmed) Vitamin D deficiency(Confirmed) Active 3epwem0Eml conversion document.3mild concentrical VH, mild pulmo. ECHO 06/12/08. See conversion document.4See conversion document.5See conversion document.6See conversion document.7Rt > Lft. See conversion document.8See conversion document.9See conversion document.10foraminal narrowing L5-S1. See conversion document.11See conversion document.12See conversion document. Allergies, Adverse Reactions, Alerts No Known Medication Allergies Medications acetaminophen 650 mg, Oral, QID, 0 Refill(s) Start Date: 04/24/15 Status: Orderedcitalopram 10 mg oral tablet 10 mg 1 tabs, Oral, Daily, # 30 tabs, 1 Refill(s), Pharmacy: [facility] # [id number], 1 tabs Oral Daily Start Date: 10/24/15 Status: OrderedEcotrin mg, Oral, Daily, 0 Refill(s) Start Date: 04/25/15 Status: OrderedglipiZIDE 5 mg oral tablet 5 mg 1 tabs, Oral, BID, # 180 tabs, 3 Refill(s), Pharmacy: [facility] # [id number], 1 tabs Oral BID,x90 days Start Date: 10/10/15 Stop Date: 10/04/16 Status: OrderedLevemir FlexPen 100 units/mL subcutaneous solution 32 units, SubCutaneous, Bedtime (once a day), 32 units at bedtime, # 2 boxes, 6 Refill(s), Pharmacy:[facility] #[id number], 32 units SubCutaneous Bedtime ( once a day),Instr:32 units at bedtime Start Date: 03/21/15 Status: Orderedlosartan 100 mg oral tablet See Instructions, TAKE ONE TABLET BY MOUTH ONCE DAILY, # 30 tabs, 5 Refill(s), eRx: [facility], TAKE ONE TABLET BY MOUTH ONCE DAILY Start Date: 03/08/15 Status: OrderedMetoprolol Succinate ER 50 mg oral tablet, extended release See Instructions, TAKE ONE TABLET BY MOUTH ONCE DAILY, # 60 tabs, 2 Refill(s), Pharmacy: [facility] #[id number] Start Date: 06/01/15 Status: OrderedMiraLax 17 g, Oral, Daily, 0 Refill(s) Start Date: 04/24/15 Status: OrderedMisc Medication Meloxicam/Topiramate/Tramadol/Lidocaine/Prilocaine compunded lotion 0.18/1/0.25 /2/2%, 0 Refill(s) Start Date: 11/01/15 Status: OrderedMiscellaneous DME DME Item One Touch Ultra 2 Glucose Test Strips Test once am & once pm DX - 250.00, See Instructions, # 100 Each, 0 Refill(s), Pharmacy: [facility], One Touch Ultra 2 Glucose Test Strips; Test once am & once pm ; DX - 250.00, Supply Start Date: 06/27/14 Status: OrderedONETOUCH ULTRA TEST STRIPS See Instructions, USE ONE STRIP TO TEST EVERY MORNING AND EVERY EVENING, # 50 strip, eRx: [facility] #[id number], USE ONE STRIP TO TEST EVERY MORNING AND EVERY EVENING Start Date: 10/26/15 Status: OrderedONETOUCH ULTRA TEST STRIPS See Instructions, USE ONE STRIP TO TEST EVERY MORNING AND EVERY EVENING, # 50 strip, 1 Refill(s), eRx: [facility] #[id number], USE ONE STRIP TO TEST EVERY MORNING AND EVERY EVENING Start Date: 08/20/15 Status: Orderedpotassium gluconate 595 mg oral tablet 1 tabs, Oral, Daily, # 100 tabs, 0 Refill(s) Start Date: 02/01/14 Status: Orderedspironolactone 25 mg oral tablet See Instructions, TAKE ONE TABLET BY MOUTH DAILY, # 90 tabs, eRx: [facility] #[id number], TAKE ONETABLET BY MOUTH DAILY Start Date: 08/20/15 Status: OrderedVitamin D3 2000 intl units oral [...] Hysterectomy6 1981 Bladder7 Colonoscopy abnormal8 1done at [facility]. No mammographic evidence of malignancy. See scanned [id number] Coaptite suburethral bulking implant.3Coaptite suburethral bulking implant.4Dr. Merced. See conversion document.5She had surgery for ovarian cyst. She reports she has one ovary remaining.6without SO. See conversion document.73 bladder [id number] polyp Social History Social History Type Response [...] Bursa Inj Office Visit Level 4 Est 70219 2.Anxiety and depression, Other mixed anxiety disorders Her shakiness is likely anxiety/stress related. Continue with citalopram as previous. Follow-up if worsening presentation. Recommended counseling. Recommended discussing treatment plan of her 's care with the oncologist. Ordered: Office Visit Level 4 Est 90499
--- OUTSIDE RECORDS SUMMARY | 2016-11-23 09:55 | External Medical Summary | Referral Summary ---
:1940 Author Organization [facility] Address [address] [place] [address] [place] [id number] Care Team Providers Name Role Phone Vipul Jaimes Primary Care Physician Encounter VC Date(s): 10/10/15 - 10/10/15 [facility] [address] [place] [phone] [phone] Discharge Disposition: 01-Home or Self Care Attending Physician: Vipul Jaimes DO Admitting Physician: Vipul Jaimes DO Vital Signs Most recent to oldest [Reference Range]: 1 Temperature Tympanic [36.6-38.1 degC] 36.9 degC (10/10/15 9:09 AM) Peripheral Pulse Rate [60-100 bpm] 72 bpm (10/10/15 9:09 AM) Respiratory Rate [14-20 br/min] 17 br/min (10/10/15 9:09 AM) Blood Pressure [90-140/60-90 mmHg] 138/80 mmHg (10/10/15 9:09 AM) SpO2 98 % (10/10/15 9:09 AM) Problem List Condition Effective Dates Status Health Status Informant Arthritis(Confirmed)1 Active patient Benign essential Active hypertension(Confirmed)2 Hypertensive Active cardiomyopathy(Confirmed)3 Coronary atherosclerosis unspec Active vessel(Confirmed)4 DDD(Confirmed)5 Active Depressive disorder, 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 Active classified(Confirmed) Diabetes w/o complication type Active II(Confirmed)6 penitentiary current use of Active insulin(Confirmed) Bilateral carotid artery Active disease(Confirmed)7 HNP(Confirmed)8 Active Hypercalcemia(Confirmed) Active Hyperparathyroidism(Confirmed) Active Low back pain(Confirmed)9 Active Lumbar spondylosis(Confirmed)10 Active Mixed hyperlipidemia(Confirmed)11 Active Morbid obesity(Confirmed) Active patient Overweight(Confirmed) Active Post-surgical Active hypothyroidism(Confirmed) Pure hypercholesterolemia(Confirmed)12 Active Sleep apnea(Confirmed) Active patient Diabetes type 2, Active uncontrolled(Confirmed) Vitamin D deficiency(Confirmed) Active [id number] conversion document.3mild concentrical VH, mild pulmo. ECHO [...] Daily, # 30 tabs, 0 Refill(s), Pharmacy: [facility] # [id number], 1 tabs Oral Daily Start Date: 09/20/15 Status: OrderedDiflucan 150 mg oral tablet 150 mg 1 tabs, Oral, qWeek, # 4 tabs, 0 Refill(s), Pharmacy: [facility] # [id number], 1 tabs Oral qWeek Start Date: 09/20/15 Stop Date: 10/25/15 Status: OrderedEcotrin mg, Oral, Daily, 0 Refill(s) Start Date: 04/25/15 Status: OrderedglipiZIDE 5 mg oral tablet 5 mg 1 tabs, Oral, BID, # 180 tabs, 3 Refill(s), Pharmacy: [facility] # [id number], 1 tabs Oral BID,x90 days Start Date: 10/10/15 Stop Date: 10/04/16 Status: OrderedglipiZIDE 5 mg oral tablet, extended release 5 mg 1 tabs, Oral, BID, # 180 tabs, 1 Refill(s), Pharmacy: [facility] # [id number], 1 tabs Oral BID,x90 days Start Date: 10/10/15 Stop Date: 04/07/16 Status: OrderedLevemir FlexPen 100 units/mL subcutaneous solution 32 units, SubCutaneous, Bedtime (once a day), 32 units at bedtime, # 2 boxes, 6 Refill(s), Pharmacy:[facility] #[id number], 32 units SubCutaneous Bedtime ( once a day),Instr:32 units at bedtime Start Date: 03/21/15 Status: Orderedlosartan 100 mg oral tablet See Instructions, TAKE ONE TABLET BY MOUTH ONCE DAILY, # 30 tabs, 5 Refill(s), eRx: [id number], TAKE ONE TABLET BY MOUTH ONCE DAILY Start Date: 03/08/15 Status: OrderedMetoprolol Succinate ER 50 mg oral tablet, extended release See Instructions, TAKE ONE TABLET BY MOUTH ONCE DAILY, # 60 tabs, 2 Refill(s), Pharmacy: [facility] #[id number] Start Date: 06/01/15 Status: OrderedMiraLax 17 g, Oral, Daily, 0 Refill(s) Start Date: 04/24/15 Status: OrderedMiscellaneous DME DME Item One Touch Ultra blue test strip. To test in am and evening and prn Diag - E11.65, See Instructions, # 50 Each, 1 Refill(s), Pharmacy: [facility] #[id number], One Touch Ultra blue test strip. To test in am and evening and prn; Diag - E11.6... Start Date: 05/21/15 Status: OrderedMiscellaneous DME DME Item One Touch Ultra 2 Glucose Test Strips Test once am & once pm DX - 250.00, See Instructions, # 100 Each, 0 Refill(s), Pharmacy: [id number], One Touch Ultra 2 Glucose Test Strips; Test once am & once pm ; DX - 250.00, Supply Start Date: 06/27/14 Status: OrderedONETOUCH ULTRA TEST STRIPS See Instructions, USE ONE STRIP TO TEST EVERY MORNING AND EVERY EVENING, # 50 strip, 1 Refill(s), eRx: [facility] #[id number], USE ONE STRIP TO TEST EVERY MORNING AND EVERY EVENING Start Date: 08/20/15 Status: Orderedpotassium gluconate 595 mg oral tablet 1 tabs, Oral, Daily, # 100 tabs, 0 Refill(s) Start Date: 02/01/14 Status: Orderedspironolactone 25 mg oral tablet See Instructions, TAKE ONE TABLET BY MOUTH DAILY, # 90 tabs, eRx: [facility] #[id number], TAKE ONETABLET BY MOUTH DAILY Start Date: 08/20/15 Status: OrderedVitamin D3 2000 intl units oral tablet tabs, Oral, Daily, 0 Refill(s) Start Date: 02/01/14 Status: Ordered Results Chemistry Most recent to oldest [Reference Range]: 1 Sodium Lvl [135-144 mEq/L] 136 mEq/L (10/10/15 10:43 AM) Potassium Lvl [3.5-5.2 mEq/L] 4.7 mEq/L (10/10/15 10:43 AM) Chloride [99-111 mEq/L] 101 mEq/L (10/10/15 10:43 AM) CO2 [22-31 mEq/L] 26 mEq/L (10/10/15 10:43 AM) AGAP [3-20] 9 (10/10/15 10:43 AM) BUN [10-20 mg/dL] 16 mg/dL (10/10/15 10:43 AM) Glucose Lvl [70-99 mg/dL] 176 mg/dL *HI* (10/10/15 10:43 AM) Creatinine Lvl [0.57-1.11 mg/dL] 0.97 mg/dL (10/10/15 10:43 AM) eGFR [>60 mL/min] 56 mL/min 1 *ABN* (10/10/15 10:43 AM) Calcium Lvl [8.9-10.5 mg/dL] 10.1 mg/dL (10/10/15 10:43 AM) Albumin Lvl [3.4-4.8 gm/dL] 4.5 gm/dL (10/10/15 10:43 AM) Total Protein [6.0-7.6 gm/dL] 7.0 gm/dL 2 (10/10/15 10:43 AM) Globulin [1.8-4.0 gm/dL] 2.5 gm/dL (10/10/15 10:43 AM) ALT [0-55 U/L] 15 U/L (10/10/15 10:43 AM) AST [5-34 U/L] 17 U/L (10/10/15 10:43 AM) Alk Phos [40-150 U/L] 72 U/L (10/10/15 10:43 AM) Bili Total [0.2-1.2 mg/dL] 0.7 mg/dL (10/10/15 10:43 AM) Hgb A1c [4.1-5.6 %] 6.9 % *HI* (10/10/15 10:43 AM) eAvg Glucose 151.3 mg/dL (10/10/15 10:43 AM) 1Result Comment: Multiply eGFR results by 1.21 for race.2Result Comment: Please note new reference range for adult Protein. Immunizations Vaccine Date Refusal Reason influenza virus vaccine, inactivated 02/13/14 pneumococcal 13-valent conjugate vaccine 01/31/15 tetanus-diphth toxoids (Td) adult/adol 09/24/99 Procedures Procedure Date Related Diagnosis Body Site Mammogram - screening1 07/20/15 Parathyroidectomy or exploration of 10/16/14 parathyroid(s);.. 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 No mammographic evidence of malignancy. See scanned [id number] Coaptite suburethral bulking implant.3Coaptite suburethral bulking implant.4Dr. Merced. See conversion document.5She had surgery for ovarian cyst. She reports she has one ovary remaining.6without SO. See conversion document.73 bladder [id number] polyp Social History Social History Type Response Smoking Status Never smoker Assessment and Plan Extracted from: Title: Office Visit Note Author: Vipul Jaimes DO Date: 10/10/15 Assessment/Plan Anxiety and depression 1. Continue with the citalopram at 10 mg daily. If her symptoms of shakiness with the medication continues for another month, then we may consider changing it to a different SSRI or Wellbutrin. Ordered: Office Visit Level 4 Est 87696 Diabetic neuropathy 1. She does appear to have some neuropathy on microfilament testing. 2. We may consider gabapentin, she would like to hold off on any new medications at this time. Ordered: Office Visit Level 4 Est 99102 Shakiness 1. Shakiness is still not a common side effect of citalopram however, if the symptoms started after she was started on this medication it could very well be related. 2. If this is bothersome then we may discontinue this medication and change it to something different. Ordered: Office Visit Level 4 Est 32467 Uncontrolled type 2 diabetes mellitus 1. Recommended increasing glyburide to 5 mg twice a day to get better control of her blood sugars. 2. Continue with Levemiras previous. 3. Follow-up in 3 months for reevaluation. Ordered: Comprehensive Metabolic Panel Hemoglobin A1c Office Visit Level 4 Est 37267 Orders: glipiZIDE, 5 mg 1 tabs, Oral, BID, # 180 tabs, 1 Refill(s), Pharmacy : [facility] #[id number], 1 tabs Oral BID,x90 days glipiZIDE, 5 mg 1 tabs, Oral, BID, # 180 tabs, 3 Refill(s), Pharmacy: [facility] #[id number], 1 tabs Oral BID,x90 days
[2016-11-23] MEDS ORDERED: IOHEXOL 300mg/ml 100ml INJECTION ONE (10:02)
[2016-11-23] MEDS ORDERED: NS 1,000 ML IV ONE (10:02)
[2016-11-23] MEDS ORDERED: NS 100 ML ONE (10:03)
[2016-11-23] MEDS ORDERED: SALINE FLUSH 10ml SYRINGE ONE (10:03)
[2016-11-23] MEDS ORDERED: LIDOCAINE 1% (10mg/ml) 30ml SDV INJ INJ ONE (10:30)
--- NOTE | 2016-11-23 10:43 | XRay Report ---
Indication: Fall with right hand pain PROCEDURE: XR hand RT min 3V: Encounter: Initial Comparison: None Findings: Oblique nondisplaced fracture of the middle phalanx of the small finger. There is also a nondisplaced fracture of the base of the small finger distal phalanx extending into the DIP joint superimposed upon large osteophytes. No additional acute fracture or dislocation seen. Moderate osteoarthritis. Impression: Closed posttraumatic nondisplaced fractures of the small finger middle and distal phalanges. .
[2016-11-23] MEDS ORDERED: TETANUS, DIPHTHERIA, a PERTUSSIS (Tdap) 0.5ml INJECTION IM ONE (10:58)
[2016-11-23] MEDS ORDERED: Tdap VACCINE ADMINISTR CHARGE INJ ONE (11:04)
--- NOTE | 2016-11-23 12:43 | History & Physical Report ---
<Tawana Birmingham - Last Filed: 11/23/16 13:39> History of Present Illness Date: 11/23/16 Chief complaint: closed head injury without loss of consciousness, fall HPI: La Beatty is a very pleasant 76-year-old female who presented to [facility] today for evaluation after sustaining a mechanical fall. She reports that this morning around 0845 she was on the front porch of her home, watering her amaya , when she suddenly found herself falling. She reports that she fell about 4 feet off her porch, striking her head on a garden sculpture. She denies any loss of consciousness or proceeding symptoms including no chest pain, shortness of breath, abdominal pain, nausea, vomiting, lightheadedness, dizziness, syncope or headache. She immediately pushed her life alert button to call for help. Upon arrival to the ED, she was alert and orientated x 3. In addition to having a 3 cm laceration to her left eye brow, she complained of slight headache and pain to her mid abdomen as well as pain in her right hand. She believes that she may have hit her abdomen when falling. Bruise noted to the anterior surface of her abdomen with mild tenderness with palpation. CT head, CT cervical spine and CT abdomen/pelvis were obtained and all were negative for acute changes or injury. X-ray of her Labs were obtained and were unremarkable. X-ray of her right hand revealed a closed, nondisplaced fracture of the right 5th middle and distal phalanges. Labs were obtained and were unremarkable. UA revealed trace bacteria with 1-3 WBC and 0-1 RBC. Her right 5th finger was placed in a long finger splint. Her brow laceration required 6 sutures. Given her age and mechanism of her fall, Dr. Lee was contacted and she was admitted into observation status for further evaluation, close neurologic and cardiac monitoring and pain control. Her length of stay is not expected to exceed more than 2 over nights. Mrs. Beatty is seen upon her arrival to her room, with her son, [id number] and 2 grandsons present on exam. She is alert and orientated and answers all questions easily and appropriately. She complains of a slight headache and right finger pain, currently rating her pain at 2/10. She also complains of new pain to her right great toe and foot. She has a history of diabetic neuropathy with decreased sensation to her feet. Exam of her feet reveals 1+ pedal edema bilaterally with 1+ pedal pulses bilaterally. Swelling with ecchymosis noted to the anterior aspect of the right foot between the 1st and 2nd toes and no obvious deformity. Tenderness to palpation noted to base of right great toe. Her past medical history is significant for Parkinson's disease, diabetes, hypertension, CAD and mild dysphagia. Review of Systems Comprehensive ROS: completed and no additional positive findings except those as stated - Constitutional Constitutional: Present: headache(s). Absent: chills, fatigue, fever(s), lethargy, night sweats, weakness - EENMT Eyes: Absent: blurry vision, change in vision, diplopia, loss of vision, photophobia Ears: Absent: ear pain Balance: Absent: falling to one side Nose: Absent: nosebleeds Mouth/Throat: Absent: sore throat, changes in swallowing, loose teeth - Cardiovascular Cardiovascular: Present: edema. Absent: chest pain, palpitations, syncope, dyspnea on exertion, orthopnea, cyanosis Vascular: Present: pedal edema, varicosities. Absent: unilateral swelling - Respiratory Respiratory: Absent: cough, dyspnea, hemoptysis, dyspnea on exertion, wheezing - Gastrointestinal Gastrointestinal: Present: abdominal pain (abdominal wall), constipation. Absent: change in bowel habits, melena, nausea, vomiting - Genitourinary Genitourinary: Absent: dysuria, flank pain, hematuria, pelvic pain - Musculoskeletal Musculoskeletal: Present: abnormal gait (history of parkinson's). Absent: neck pain - Integumentary/Breasts Integumentary: Present: as per HPI. Absent: jaundice - Neurological Neurological: Present: abnormal gait, headache(s), tremor(s). Absent: confusion , dizziness, focal weakness, memory loss - Psychiatric Psychiatric: Present: depression - Endocrine Endocrine: Absent: palpitations, polydipsia, polyphagia, polyuria - Hematologic/Lymphatic Hematologic/Lymphatic: Present: easy bruising - Allergic/Immunologic Allergic/Immunologic: Absent: itchy eyes [facility] Medical History Chronic kidney disease, stage III. Cancer of face Diabetes, Type II. Hypertension. CAD. Hypoparathyroid. Parkinson's disease. History of DC. Constipation. Osteoarthritis. Diabetic neuropathy. Mild dysphagia. History of carotid stenosis. Depression. Obstructive sleep apnea. Lumbar spondylosis. Morbid obesity. Surgical History: Left knee total arthroplasty, 04/17/15, Dr. Bailey. Echocardiogram 04/09/15: EF 63%, diastolic dysfunction I, mild aortic valve sclerosis. Carotid duplex 04/09/15: Less than 20% stenosis bilaterally. Parathyroidectomy, 10/14. CABG 2005. Oopherectomy, 1983. Hysterectomy, 1981. Cystoscopy, 06/14. Bypass graft x2, 10/2005. Colonoscopy. Family History: Family History Mother: Breast cancer. Father: Coronary artery disease, High blood pressure. Sister: Coronary artery disease, High blood pressure, Diabetes. - Social History Smoking status: Never smoker Substance use type: does not use Alcohol intake frequency: does not drink Housing: house Household members: none Current occupational status: retired Current residence: Apartment/Private Home Social history: PCP - Dr. Rommel Cruz. Medications Home Medications Medication Instructions Recorded Confirmed Type Spironolactone [Aldactone] 25 mg PO DAILY #0 08/29/08 11/23/16 History Citalopram Hydrobromide 10 mg PO DAILY #0 11/09/15 11/23/16 History [Citalopram HBr] Losartan Potassium 100 mg PO DAILY #0 11/09/15 11/23/16 History glipizide 5 mg tablet 5 mg PO BID 90 Days #180 tab 09/08/16 11/23/16 History Tresiba FlexTouch U-100 (insulin 36 unit SQ HS ml 09/18/16 11/23/16 History degludec) 100 unit/mL (3 mL) PEN Acetaminophen 1,000 mg PO HS 11/23/16 11/23/16 History Aspirin [Jacki Chewable Aspirin] 81 mg PO DAILY 11/23/16 11/23/16 History Atorvastatin [Lipitor] 40 mg PO HS 11/23/16 11/23/16 History Cholecalciferol (Vitamin D3) 1,000 unit PO DAILY 11/23/16 11/23/16 History [Vitamin D3] Metoprolol Tartrate [Lopressor] 50 mg PO BID 11/23/16 11/23/16 History Nitroglycerin 0.4 mg SL Q5M PRN 11/23/16 11/23/16 History Potassium 99 mg PO DAILY 11/23/16 11/23/16 History Allergies Allergy/AdvReac Type Severity Reaction Status Date / Time No Known Drug Allergies Allergy Unknown Verified 11/23/16 10:07 Exam Vital Signs: Pulse Rate 65 11/23/16 11:46 Respiratory Rate 24 11/23/16 11:46 Blood Pressure 135/62 11/23/16 11:46 Pulse Oximetry 96 11/23/16 10:14 - Constitutional Present: no acute distress, well nourished, well developed, morbidly obese, cooperative - Routine HEENT Exam Head: Present: normocephalic, laceration (left eye brow - [address] hematoma (left eye brow), scalp tenderness (top of scalp - abrasion). Absent: CSF otorrhea Eye: Present: EOMI, PERRL, normal accommodation, periorbital ecchymosis (left), periorbital swelling (left), periorbital tenderness (left). Absent: conjunctival icterus ENT: Present: mucous membranes moist, oropharynx clear, dentition normal - Routine Neck Exam Present: supple, full ROM, trachea midline Comments: no tenderness to midline. - Routine Chest/Breast/Axilla Exam Chest wall: Absent: tenderness, pacemaker - Routine Respiratory Exam Present: CTA bilaterally. Absent: accessory muscle use, stridor, wheezes, crackles - Routine Cardiovascular Exam Present: RRR, S1, S2 - Routine Abdominal Exam Present: soft, normoactive bowel sounds, tenderness (epigastric/mid-abdomen), distended, guarding (voluntary). Absent: bruit - Routine Extremities Exam Present: edema (1+ pedal, bilateral), pulses intact (1+ pedal, bilaterally.) Comments: tenderness to base of right great toe with swelling and ecchymosis. Right 5th finger in long finger splint secondary to nondisplaced fracture. - Routine Back/Spine/Pelvis Exam Back/Spine: Absent: vertebral tenderness - Routine Skin Exam Present: dry, warm. Absent: jaundice Comments: afebrile; 3 cm laceration with swelling and ecchymosis noted to left eye brow with 6 sutures intact, clean and dry. - Routine Neurological Exam Present: alert, oriented X3, CN II-XII intact, moving all extremities, normal tone, hearing grossly intact, normal speech, tremors. Absent: facial asymmetry decreased touch sensation bilateral feet secondary to neuropathy. - Routine Psychiatric Exam Present: normal affect, cooperative, good insight Results - Labs CBC & Chem 7: 11/23/16 09:41 11/23/16 09:41 - Imaging and Cardiology CT scan - abdomen Status: image reviewed by me Additional comments: 11/23/16: no acute abnormality per virtual radiology. CT scan - head Status: image reviewed by me Additional comments: 11/23/16: no acute intracranial or cervical spine abnormality per virtual radiology. Assessment and Plan (1) Closed head injury without loss of consciousness Current visit: Yes Status: Acute (2) Accidental fall Current visit: Yes Status: Acute (3) Closed fracture of finger Current visit: Yes Status: Acute (4) Abdominal contusion Current visit: Yes Status: Acute DVT Prophylaxis: SCD's Assessment and Plan: 11/23/16: [facility]. Admission. Assessment Closed head injury without loss of consciousness secondary to mechanical fall, acute. Laceration and contusion to left eyebrow, acute. Closed, nondisplaced fractures of the right 5th middle and distal phalanges, acute. Abdominal contusion, acute. Right great toe injury, acute. Parkinson's disease, chronic. Hypertension, chronic. Hypercholesterolemia, chronic. Diabetes, Type II, chronic. Constipation, chronic. Osteoarthritis, chronic. Parathyroid abnormality, chronic. Chronic kidney disease, stage III. Lumbar spondylosis, chronic. Depression, chronic. Gait instability, chronic. Morbid obesity, chronic. Plan Admit to observation status under the care of Dr. Lee. Close neurologic monitoring in light of head injury. CT head and c-spine were negative for acute changes. Patient complains of new right great toe and foot pain. Obtain foot x-ray now for further evaluation - results pending. Monitor cardiac function closely on telemetry. Continue home blood pressure medications (spironolactone, losartan, ASA, metoprolol). Continue home Lipitor for hypercholesterolemia. 1+ pedal edema noted on exam. Monitor daily weights closely for signs of fluid overload. History of Type II DM. Continue home glipizide and Tresiba insulin 36 units QHS. Monitor BGMs closely ACHS. [employer] 5mg as needed for pain control. Encourage bowel motivation in light of narcotic pain control and history of constipation with Colace and miralax. SCDs for DVT prophylaxis. Will hold ASA in light of recent head injury. History of Parkinson's disease. Patient follows with Dr. Alseoudi. Continue home sinemet. Prior clinic notes reveal concern for mild dysphagia. Will obtain speech evaluation. May consider PT/OT evaluation in light of recent fall and gait instability secondary to Parkinson's. Encourage incentive spirometry for pulmonary toileting. Contusion to abdomen secondary to fall. UA revealed no hematuria. CT abdomen/pelvis was negative for acute changes. Monitor closely for signs of worsening or deteriorating condition. 6 suture placed to left eye brow. Recommend monitor laceration closely for signs of infection. Keep incision clean and dry. Recommend suture removal in 5 -7 days. Ice as needed for swelling. Avoid ibuprofen for pain control in light of CKD. Will recheck CBC and BMP in AM to monitor blood counts, electrolytes and renal function. Upon discharge, patient's care will be returned to her PCP. - Time spent with patient greater than 35 minutes Hospital Course Summary Disclaimer: The visit summary below is not to be considered part of the above Progress Note. Hospital Course: 11/23/16: Vinnie. Admission. Assessment Closed head injury without loss of consciousness secondary to mechanical fall, acute. Laceration and contusion to left eyebrow, acute. Closed, nondisplaced fractures of the right 5th middle and distal phalanges, acute. Abdominal contusion, acute. Right great toe injury, acute. Parkinson's disease, chronic. Hypertension, chronic. Hypercholesterolemia, chronic. Diabetes, Type II, chronic. Constipation, chronic. Osteoarthritis, chronic. Parathyroid abnormality, chronic. Chronic kidney disease, stage III. Lumbar spondylosis, chronic. Depression, chronic. Gait instability, chronic. Morbid obesity, chronic. Plan Admit to observation status under the care of Dr. Lee. Close neurologic monitoring in light of head injury. CT head and c-spine were negative for acute changes. Patient complains of new right great toe and foot pain. Obtain foot x-ray now for further evaluation - results pending. Monitor cardiac function closely on telemetry. Continue home blood pressure medications (spironolactone, losartan, ASA, metoprolol). Continue home Lipitor for hypercholesterolemia. 1+ pedal edema noted on exam. Monitor daily weights closely for signs of fluid overload. History of Type II DM. Continue home glipizide and Tresiba insulin 36 units QHS. Monitor BGMs closely ACHS. [employer] 5mg as needed for pain control. Encourage bowel motivation in light of narcotic pain control and history of constipation with Colace and miralax. SCDs for DVT prophylaxis. Will hold ASA in light of recent head injury. History of Parkinson's disease. Patient follows with Dr. Cruz. Continue home Sinemet. Prior clinic notes reveal concern for mild dysphagia. Will obtain speech evaluation. May consider PT/OT evaluation in light of recent fall and gait instability secondary to Parkinson's. Encourage incentive spirometry for pulmonary toileting. Contusion to abdomen secondary to fall. UA revealed no hematuria. CT abdomen/pelvis was negative for acute changes. Monitor closely for signs of worsening or deteriorating condition. 6 suture placed to left eye brow. Recommend monitor laceration closely for signs of infection. Keep incision clean and dry. Recommend suture removal in 5 -7 days. Ice as needed for swelling. Avoid ibuprofen for pain control in light of CKD. Will recheck CBC and BMP in AM to monitor blood counts, electrolytes and renal function. Upon discharge, patient's care will be returned to her PCP. <Ralph Lee - Last Filed: 11/23/16 15:55> History of Present Illness Date: 11/23/16 [facility] Patient Stated Medical History Parkinson's Disease Yes Congestive Heart Failure Yes Coronary Artery Disease Yes Hypertension Yes Myocardial Infarction STATES NOT ACTUAL HEART ATTACK Bronchitis Yes Diabetes Mellitus Type 2 Yes Other GI Yes: CONSTIPATION AND DIARRHEA Hx Incontinence Yes: partially Hx Urinary Tract Infection Yes Osteoarthritis Yes Other Musculoskeletal Yes: often has very sore great toes Depression Yes Clinic Medical History Acute arthritis (Acute Medical) Cancer of face (Acute Medical) Diabetes (Acute Medical) HTN (hypertension) (Acute Medical) Heart disease (Acute Medical) Parathyroid abnormality (Acute Medical) Family History: Family History Mother Breast cancer Father Coronary artery disease High blood pressure Sister Coronary artery disease High blood pressure Diabetes Exam Vital Signs: Temperature 97.9 F 11/23/16 12:00 Pulse Rate 65 11/23/16 13:02 Respiratory Rate 20 11/23/16 12:00 Blood Pressure 155/63 H 11/23/16 12:00 Pulse Oximetry 95 11/23/16 12:00 Height/Weight/BMI: Height 1.57 m Weight 94.6 kg Body Mass Index 38.1 Results - Labs CBC & Chem 7: 11/23/16 09:41 11/23/16 09:41 Assessment and Plan (1) Closed head injury without loss of consciousness Current visit: Yes Status: Acute (2) Accidental fall Current visit: Yes Status: Acute (3) Closed fracture of finger Current visit: Yes Status: Acute (4) Abdominal contusion Current visit: Yes Status: Acute Assessment and Plan: Assessment Closed head injury without loss of consciousness secondary to mechanical fall, acute Laceration and contusion to left eyebrow, acute Closed, nondisplaced fractures of the right 5th middle and distal phalanges, acute Abdominal contusion, acute Right great toe injury, acute Parkinson's disease, chronic Hypertension, chronic Hypercholesterolemia, chronic Diabetes, Type II, chronic Constipation, chronic Osteoarthritis, chronic Parathyroid abnormality, chronic Chronic kidney disease, stage III Lumbar spondylosis, chronic Depression, chronic Gait instability, chronic Obesity, chronic Have independently interviewed and examined pt. Chart reviewed. Case discussed with ED physician and my PA. Care plan developed with my supervision; agree with above except BMI 38.1 indicated Obesity (not Morbid) and patient had not had Hx of DC. Presents to [facility] via EMS secondary to fall. Reports she was bent over watering flower when the next thing she knew she was flying through the air. Not sure what caused her to fall. Did not feel dizzy. Did not have LOC. Not able to get up-activated her alert button to summon help. Has been in her typical state of health until the fall. Parkinson's has really slowed her down- reports days earlier this week when she was feeling too shaky and unsteady to do much. Today, however, she work feeling well and wanting to go to [employer]. Breathing stable. No chest pressure or pain. Appetite fair. Stools variable- either too slow or too urgent. No urinary pain. Lungs: clear CV: regular AB: soft nt/nd +BS Plan: OBS admission to monitor neurological status secondary to closed head injury and abdominal status secondary to blunt force trauma to abdomen. Will need PT/OT evaluation to assess functional status to help determine if patient able to return home-worry recovery will be slowed secondary to her Parkinson's. Routine neurochecks. Pain control. SCD for DVT prevention-with trauma, hold ASA and avoid Lovenox. Recheck Lipase in am to monitor for pancreatic inflammation due to trauma. IS for pulmonary toilet. Care to return to Dr Cruz at time of discharge from [facility] Hospital Course Summary Disclaimer: The visit summary below is not to be considered part of the above Progress Note.
[2016-11-23] MEDS ORDERED: ACETAMINOPHEN 325 MG TABLET PO PRN (12:50)
[2016-11-23] MEDS ORDERED: NITROGLYCERIN 0.4 MG SUBLINGUAL TABLET SL PRN (13:34)
[2016-11-23] MEDS ORDERED: FALL RISK - PHARMACY CONSULT XX ONE (13:55)
[2016-11-23] MEDS: HYDROCODONE/APAP 5mg/325mg TABLET PO PRN ×3 (14:01→23:07)
[2016-11-23] MEDS: LEVODOPA PO SCH ×2 (14:02→20:43)
[2016-11-23] MEDS: CARBIDOPA PO SCH ×2 (14:02→20:43)
[2016-11-23] MEDS: DOCUSATE SODIUM 100 MG CAPSULE PO SCH (14:20)
[2016-11-23 14:28] VITALS: BMI 38.1
[2016-11-23] MEDS ORDERED: BISACODYL 10 MG SUPPOSITORY RECTALLY PRN (15:40)
[2016-11-23] MEDS ORDERED: ONDANSETRON 4 MG/2 ML INJECTION IVP PRN (15:41)
[2016-11-23] MEDS: GLIPIZIDE 5 MG PO SCH (17:56)
[2016-11-23] MEDS: METOPROLOL TARTRATE 50 MG PO SCH (17:56)
[2016-11-23] MEDS: INSULIN DEGLUDEC SQ SCH (20:43)
[2016-11-23] MEDS: ATORVASTATIN 40 MG PO SCH (20:43)
[2016-11-24] MEDS: HYDROCODONE/APAP 5mg/325mg TABLET PO PRN ×3 (04:06→22:20)
[2016-11-24] MEDS: CYCLOBENZAPRINE 5 MG TABLET PO PRN ×2 (04:58→22:20)
[2016-11-24] MEDS: LEVODOPA PO SCH ×3 (07:02→22:22)
[2016-11-24] MEDS: CARBIDOPA PO SCH ×3 (07:02→22:22)
--- NOTE | 2016-11-24 08:26 | XRay Report ---
Indication: fall, right great toe and foot pain/swelling PROCEDURE: XR foot RT min 3V: Encounter: Initial Comparison: None. Findings: There is moderate diffuse osteopenia. There is a severe flexion deformity of the great toe IP joint with hyperextension of the MTP joint. No definite cortical destruction. There is a bone anchor in the calcaneus with hypertrophic bony changes of the proximal calcaneus that are probably reactive. There is also a moderate plantar calcaneal heel spur. Impression: Hyperextension of the first MTP joint with flexion of the IP joint of the great toe. Osteopenia without definite cortical destruction. .
--- NOTE | 2016-11-24 08:36 | CT Scan Report ---
Indication: Pain, bruising of abdomen PROCEDURE: CT abdomen pelvis w con: Encounter: Initial Comparison: None. Findings: CT ABDOMEN: Included portions of the lung bases are clear. Heart size normal. No pleural effusion. There is some presumed ecchymosis over the anterior abdominal wall. The liver, spleen, kidneys, pancreas, and adrenal glands are normal. The gallbladder is thin walled and nondistended, without stones. The abdominal aorta is non-aneurysmal, with moderate calcific atherosclerotic disease. There is no retroperitoneal or mesenteric adenopathy. CT PELVIS: There is no significant distal colonic diverticulosis or evidence for diverticulitis. A normal appendix is not identified with certainty. There is no pelvic sidewall adenopathy. No free fluid. No definite bony destructive process. The vertebral body heights and the alignments appear relatively well-preserved. There is no definite acute appearing displaced lower thoracic or lumbar fracture. IMPRESSION: No evidence for infectious or inflammatory process. No evidence for mass or adenopathy. No evidence for solid organ or hollow viscus injury. .
--- NOTE | 2016-11-24 08:38 | CT Scan Report ---
Indication: Fall, CHI PROCEDURE: CT head/brain wo con: Encounter: Initial Comparison: 11/23/2016 FINDINGS: There is mild prominence of the ventricles and sulci compatible with cortical atrophy. There is no mass, mass effect, or midline shift. No evidence for intracranial hemorrhage. No intra or extra-axial fluid collections. No evidence for depressed skull fracture. The included portions of the sinuses are clear. IMPRESSION: Mild cortical atrophy. No evidence for acute cortical infarct, intracranial hemorrhage, or mass. .
--- NOTE | 2016-11-24 08:42 | CT Scan Report ---
Indication: Pain PROCEDURE: CT cervical spine wo con: Encounter: Initial Comparison: None. Three-dimensional volumetric MIP reconstructions were performed. Automated Exposure Control and Iterative Reconstruction dose reducing techniques were utilized. FINDINGS: The vertebral body heights and the alignments appear relatively well-preserved. There is no definite subluxation. There is mild diffuse posterior facet arthropathy. There is moderate degenerative disc disease maximal at C5-6 and C6-7. There is a suspicious lesion in the right parotid gland that measures 14 x 16.8 mm. The included portions of the lung apices are unremarkable. IMPRESSION: No definite displaced fracture or subluxation. Suspicious parotid lesion on the right. Consider ultrasound-guided percutaneous needle biopsy. .
[2016-11-24] MEDS: GLIPIZIDE 5 MG PO SCH ×2 (08:47→18:13)
[2016-11-24] MEDS: POTASSIUM 99 MG PO SCH (08:50)
[2016-11-24] MEDS: CITALOPRAM 10 MG PO SCH (08:51)
[2016-11-24] MEDS: LOSARTAN 100 MG TAB - PT OWN PO SCH (08:52)
[2016-11-24] MEDS: CHOLECALCIFEROL 1000 UNIT PO SCH (08:53)
[2016-11-24] MEDS: DOCUSATE SODIUM 100 MG CAPSULE PO SCH (09:06)
[2016-11-24] MEDS: POLYETHYL GLYCOL 3350 17gm PACKET PO SCH (09:06)
[2016-11-24] MEDS: SPIRONOLACTONE 25 MG PO SCH (09:07)
[2016-11-24] MEDS: METOPROLOL TARTRATE 50 MG PO SCH (11:02)
--- NOTE | 2016-11-24 12:26 | Progress Note ---
<Maisha Winchester - Last Filed: 11/24/16 12:22> Subjective: Patient seen today sitting in her chair. She reports she is "sore all over." She reports her right toe and her right fifth finger are the most painful at this point. Otherwise, she only hurts if she moves-mostly in the chest and abdomen. She reports her appetite is good. Denies shortness of breath. She wonders if she can go home today. The nurses report her pulse has been running 40s to 50s. Wondering if they should hold Lopressor. Patient denies lightheadedness or dizziness. Objective Vital signs: Temperature 98.2 F 11/24/16 07:40 Pulse Rate 47 L 11/24/16 08:00 Respiratory Rate 16 11/24/16 07:40 Blood Pressure 145/60 H 11/24/16 07:40 Pulse Oximetry 95 11/24/16 07:40 Height/Weight/BMI: Height 1.57 m Weight 95.64 kg Body Mass Index 38.1 - Constitutional Present: no acute distress, well nourished, well developed - Routine HEENT Exam Head: Present: normocephalic, laceration (above left eye, with ecchymosis) ENT: Present: mucous membranes moist - Routine Respiratory Exam Present: CTA bilaterally. Absent: wheezes - Routine Cardiovascular Exam Present: RRR, S1, S2. Absent: murmur - Routine Abdominal Exam Present: soft, normoactive bowel sounds, non distended. Absent: tenderness - Routine Extremities Exam Present: edema (1+ right foot with ecchymosis over the base of the great toe.), normal capillary refill Comments: Right fifth digit is splinted. She does have normal sensation with touch to the distal end of the finger. - Routine Skin Exam Present: dry, warm - Routine Neurological Exam Present: alert, oriented X3, CN II-XII intact - Routine Lymphatic Exam Lymphatic: Absent: adenopathy - Routine Psychiatric Exam Present: normal affect, normal thought process, cooperative Results - Labs CBC & Chem 7: 11/24/16 03:55 11/24/16 03:55 Assessment and Plan (1) Closed head injury without loss of consciousness Current visit: Yes Status: Acute (2) Accidental fall Current visit: Yes Status: Acute (3) Closed fracture of finger Current visit: Yes Status: Acute (4) Abdominal contusion Current visit: Yes Status: Acute Assessment and Plan: Assessment Closed head injury without loss of consciousness secondary to mechanical fall, acute Laceration and contusion to left eyebrow, acute Closed, nondisplaced fractures of the right 5th middle and distal phalanges, acute Abdominal contusion, acute Right great toe injury, acute leukocytosis - acute Bradycardia - acute Parkinson's disease, chronic Hypertension, chronic Hypercholesterolemia, chronic Diabetes, Type II, chronic Constipation, chronic Osteoarthritis, chronic Parathyroid abnormality, chronic Chronic kidney disease, stage III Lumbar spondylosis, chronic Depression, chronic Gait instability, chronic Obesity, chronic Plan White count is up slightly to 12.0 compared to a normal reading of 9.7 yesterday. Could be related to her recent trauma. Will repeat CBC tomorrow. Repeat lipase remains within the normal range. She's had no neurologic changes. Lopressor held this a.m. due to bradycardia. Will continue to monitor heart rate. Pt on telemetry. We'll have PT/OT evaluate and determine if she is a candidate for rehabilitation or she can be dismissed home. Hospital Course Summary Disclaimer: The visit summary below is not to be considered part of the above Progress Note. Hospital Course: Assessment Closed head injury without loss of consciousness secondary to mechanical fall, acute. Laceration and contusion to left eyebrow, acute. Closed, nondisplaced fractures of the right 5th middle and distal phalanges, acute. Abdominal contusion, acute. Right great toe injury, acute. Parkinson's disease, chronic. Hypertension, chronic. Hypercholesterolemia, chronic. Diabetes, Type II, chronic. Constipation, chronic. Osteoarthritis, chronic. Parathyroid abnormality, chronic. Chronic kidney disease, stage III. Lumbar spondylosis, chronic. Depression, chronic. Gait instability, chronic. Morbid obesity, chronic. 11/23/16-Hospital admission for observation Admit to observation status under the care of Dr. Lee. Close neurologic monitoring in light of head injury. CT head and c-spine were negative for acute changes. Patient complains of new right great toe and foot pain. Obtain foot x-ray now for further evaluation - results pending. Monitor cardiac function closely on telemetry. Continue home blood pressure medications (spironolactone, losartan, ASA, metoprolol). Continue home Lipitor for hypercholesterolemia. 1+ pedal edema noted on exam. Monitor daily weights closely for signs of fluid overload. History of Type II DM. Continue home glipizide and Tresiba insulin 36 units QHS. Monitor BGMs closely ACHS. Ferguson 5mg as needed for pain control. Encourage bowel motivation in light of narcotic pain control and history of constipation with Colace and miralax. SCDs for DVT prophylaxis. Will hold ASA in light of recent head injury. History of Parkinson's disease. Patient follows with Dr. Cruz. Continue home Sinemet. Prior clinic notes reveal concern for mild dysphagia. Will obtain speech evaluation. May consider PT/OT evaluation in light of recent fall and gait instability secondary to Parkinson's. Encourage incentive spirometry for pulmonary toileting. Contusion to abdomen secondary to fall. UA revealed no hematuria. CT abdomen/pelvis was negative for acute changes. Monitor closely for signs of worsening or deteriorating condition. 6 suture placed to left eye brow. Recommend monitor laceration closely for signs of infection. Keep incision clean and dry. Recommend suture removal in 5 -7 days. Ice as needed for swelling. Avoid ibuprofen for pain control in light of CKD. Will recheck CBC and BMP in AM to monitor blood counts, electrolytes and renal function. Upon discharge, patient's care will be returned to her PCP. 11/24/16 White count is up slightly to 12.0 compared to a normal reading of 9.7 yesterday. Could be related to her recent trauma. Will repeat CBC tomorrow. Repeat lipase remains within the normal range. She's had no neurologic changes. We'll have PT/OT evaluate and determine if she is a candidate for rehabilitation or she can be dismissed home. <Ralph Lee - Last Filed: 11/24/16 13:28> Objective Vital signs: Temperature 98.2 F 11/24/16 07:40 Pulse Rate 47 L 11/24/16 08:00 Respiratory Rate 16 11/24/16 07:40 Blood Pressure 145/60 H 11/24/16 07:40 Pulse Oximetry 95 11/24/16 07:40 Height/Weight/BMI: Height 1.57 m Weight 95.64 kg Body Mass Index 38.1 Results - Labs CBC & Chem 7: 11/24/16 03:55 11/24/16 03:55 Assessment and Plan (1) Closed head injury without loss of consciousness Current visit: Yes Status: Acute (2) Accidental fall Current visit: Yes Status: Acute (3) Closed fracture of finger Current visit: Yes Status: Acute (4) Abdominal contusion Current visit: Yes Status: Acute DVT Prophylaxis: SCD's Assessment and Plan: Assessment Closed head injury without loss of consciousness secondary to mechanical fall, acute Laceration and contusion to left eyebrow, acute Closed, nondisplaced fractures of the right 5th middle and distal phalanges, acute Abdominal contusion, acute Right great toe injury, acute leukocytosis - acute Bradycardia - acute Parkinson's disease, chronic Hypertension, chronic Hypercholesterolemia, chronic Diabetes, Type II, chronic Constipation, chronic Osteoarthritis, chronic Parathyroid abnormality, chronic Chronic kidney disease, stage III Lumbar spondylosis, chronic Depression, chronic Gait instability, chronic Obesity, chronic Have independently interviewed and examined pt. Chart reviewed. Case discussed with CM, my PA, and family. Care plan developed with my supervision; agree with above. Doing fair today-much more still and sore today. Activities with therapy helped decreased the stiffness. Pain medications helping her discomfort-tolerating pain medicines. Being up and mobile very challenging-significant limitations due to her injuries and subsequent pain. Her Parkinson's not helping, either. Denies pain or nausea with eating. Ab wall sore from trauma yesterday. Breathing well. No new neurological changes. Lungs: decreased, no distress CV: bradycardic AB: soft nt/nd +BS; bruising present on anterior ab wall. MSE: awake alert appropriate Plan: IRU evaluation - Concern with patient's decrease functional status she would not do well at home. Continue pain control. Decrease Metoprolol to 25mg BID due to bradycardia - dose held this am. Continue to hold ASA secondary to head injury-avoid Lovenox/Heparin. Encourage IS use. Hospital Course Summary Disclaimer: The visit summary below is not to be considered part of the above Progress Note.
[2016-11-24] MEDS ORDERED: Ipatropium/Albuterol 20/100mcg INHALER (4gm) ORAL INH SCH (19:00)
[2016-11-24] MEDS: ATORVASTATIN 40 MG PO SCH (22:22)
[2016-11-24] MEDS: INSULIN DEGLUDEC SQ SCH (22:24)
[2016-11-25] MEDS: HYDROCODONE/APAP 5mg/325mg TABLET PO PRN (05:49)
[2016-11-25] MEDS: CYCLOBENZAPRINE 5 MG TABLET PO PRN (05:49)
[2016-11-25] MEDS: LEVODOPA PO SCH ×2 (05:51→14:17)
[2016-11-25] MEDS: CARBIDOPA PO SCH ×2 (05:51→14:17)
[2016-11-25] MEDS: POLYETHYL GLYCOL 3350 17gm PACKET PO SCH (08:37)
[2016-11-25] MEDS: DOCUSATE SODIUM 100 MG CAPSULE PO SCH (08:37)
[2016-11-25] MEDS: GLIPIZIDE 5 MG PO SCH ×2 (08:38→17:33)
[2016-11-25] MEDS: POTASSIUM 99 MG PO SCH (08:42)
[2016-11-25] MEDS: CITALOPRAM 10 MG PO SCH (08:43)
[2016-11-25] MEDS: SPIRONOLACTONE 25 MG PO SCH (08:43)
[2016-11-25] MEDS: LOSARTAN 100 MG TAB - PT OWN PO SCH (08:44)
[2016-11-25] MEDS: CHOLECALCIFEROL 1000 UNIT PO SCH (08:44)
[2016-11-25 15:30] VITALS: BP 119/49; PULSE 60; RESP 18; TEMP 97.9; O2SAT 92
--- NOTE | 2016-11-25 15:59 | Progress Note ---
Subjective: F/U: Closed head injury without loss of consciousness secondary to mechanical fall. Laceration and contusion to left eyebrow. Closed, nondisplaced fractures of the right 5th middle and distal phalanges. Abdominal contusion. Right great toe injury. Doing okay. Pain varies-Suffield helps, but did make her sleepy. No nausea. Eating well. Ab wall sore. Breathing well. Tolerating therapy. No f/c. Objective Vital signs: Temperature 97.9 F 11/25/16 15:29 Pulse Rate 60 11/25/16 15:29 Respiratory Rate 18 11/25/16 15:29 Blood Pressure 119/49 11/25/16 15:29 Pulse Oximetry 92 11/25/16 15:29 Height/Weight/BMI: Height 1.57 m Weight 95.36 kg Body Mass Index 38.1 - Constitutional Present: no acute distress, well nourished, well developed, obese, cooperative - Routine HEENT Exam Head: Present: normocephalic, atraumatic Eye: Present: EOMI, PERRL ENT: Present: mucous membranes moist - Routine Respiratory Exam Present: CTA bilaterally. Absent: respiratory distress, rhonchi, wheezes, crackles - Routine Cardiovascular Exam Present: RRR - Routine Abdominal Exam Present: soft, normoactive bowel sounds, non distended, non tender - Routine Extremities Exam Present: edema (+1BLE ). Absent: cyanosis, clubbing Comments: SCD in place - Routine Skin Exam Present: dry, warm - Routine Neurological Exam Present: alert, oriented X3, CN II-XII intact, moving all extremities, vision grossly intact, hearing grossly intact - Routine Psychiatric Exam Present: normal thought process, cooperative. Absent: anxious, agitated Results - Labs CBC & Chem 7: 11/24/16 03:55 11/24/16 03:55 Assessment and Plan (1) Closed head injury without loss of consciousness Current visit: Yes Status: Acute (2) Accidental fall Current visit: Yes Status: Acute (3) Closed fracture of finger Current visit: Yes Status: Acute (4) Abdominal contusion Current visit: Yes Status: Acute DVT Prophylaxis: SCD's Resuscitation Status: Full Code Assessment and Plan: Assessment Closed head injury without loss of consciousness secondary to mechanical fall, acute Laceration and contusion to left eyebrow, acute Closed, nondisplaced fractures of the right 5th middle and distal phalanges, acute Abdominal contusion, acute Right great toe injury, acute leukocytosis - acute Bradycardia - acute Parkinson's disease, chronic Hypertension, chronic Hypercholesterolemia, chronic Diabetes, Type II, chronic Constipation, chronic Osteoarthritis, chronic Parathyroid abnormality, chronic Chronic kidney disease, stage III Lumbar spondylosis, chronic Depression, chronic Gait instability, chronic Obesity, chronic Plan Discussed case with CM. IRU accepted patient, but insurance declined IRU stay. Did get approval for skilled stay at [facility]. Will stop Metoprolol due to persistent bradycardia. Continue with pain control. May restart ASA tomorrow. Continue with PT/OT to help maximize functional status to allow patient to return to home independent living. Arrangements for skilled care at made. Will discharge patient for skilled care - PT/OT. F/U with Dr Cruz in 1 week Suture removal in 5-8 days. Continue splint to right 5th digit due to fracture. See orders for details. - Time spent with patient Time with patient PN: 35 minutes (35 mintues spent with patient care and discharge.) Hospital Course Summary Disclaimer: The visit summary below is not to be considered part of the above Progress Note. Hospital Course: Assessment Closed head injury without loss of consciousness secondary to mechanical fall, acute. Laceration and contusion to left eyebrow, acute. Closed, nondisplaced fractures of the right 5th middle and distal phalanges, acute. Abdominal contusion, acute. Right great toe injury, acute. Parkinson's disease, chronic. Hypertension, chronic. Hypercholesterolemia, chronic. Diabetes, Type II, chronic. Constipation, chronic. Osteoarthritis, chronic. Parathyroid abnormality, chronic. Chronic kidney disease, stage III. Lumbar spondylosis, chronic. Depression, chronic. Gait instability, chronic. Obesity, chronic. 11/23/16-Hospital admission for observation Admit to observation status under the care of Dr. Lee. Close neurologic monitoring in light of head injury. CT head and c-spine were negative for acute changes. Patient complains of new right great toe and foot pain. Obtain foot x-ray now for further evaluation - results pending. Monitor cardiac function closely on telemetry. Continue home blood pressure medications (spironolactone, losartan, ASA, metoprolol). Continue home Lipitor for hypercholesterolemia. 1+ pedal edema noted on exam. Monitor daily weights closely for signs of fluid overload. History of Type II DM. Continue home glipizide and Tresiba insulin 36 units QHS. Monitor BGMs closely ACHS. Suffield 5mg as needed for pain control. Encourage bowel motivation in light of narcotic pain control and history of constipation with Colace and miralax. SCDs for DVT prophylaxis. Will hold ASA in light of recent head injury. History of Parkinson's disease. Patient follows with Dr. Cruz. Continue home Sinemet. Prior clinic notes reveal concern for mild dysphagia. Will obtain speech evaluation. May consider PT/OT evaluation in light of recent fall and gait instability secondary to Parkinson's. Encourage incentive spirometry for pulmonary toileting. Contusion to abdomen secondary to fall. UA revealed no hematuria. CT abdomen/pelvis was negative for acute changes. Monitor closely for signs of worsening or deteriorating condition. 6 suture placed to left eye brow. Recommend monitor laceration closely for signs of infection. Keep incision clean and dry. Recommend suture removal in 5 -7 days. Ice as needed for swelling. Avoid ibuprofen for pain control in light of CKD. Will recheck CBC and BMP in AM to monitor blood counts, electrolytes and renal function. Upon discharge, patient's care will be returned to her PCP. 11/24/16 White count is up slightly to 12.0 compared to a normal reading of 9.7 yesterday. Could be related to her recent trauma. Will repeat CBC tomorrow. Repeat lipase remains within the normal range. She's had no neurologic changes. We'll have PT/OT evaluate and determine if she is a candidate for rehabilitation or she can be dismissed home. 11/25/16 Discussed case with CM. IRU accepted patient, but insurance declined IRU stay. Did get approval for skilled stay at [facility]. Will stop Metoprolol due to persistent bradycardia. Continue with pain control. May restart ASA tomorrow. Continue with PT/OT to help maximize functional status to allow patient to return to home independent living. Arrangements for skilled care at made. Will discharge patient for skilled care - PT/OT. F/U with Dr Cruz in 1 week Suture removal in 5-8 days. Continue splint to right 5th digit due to fracture. See orders for details.
--- NOTE | 2016-11-25 16:12 | Discharge Summary ---
Discharge Information Date of admission: 11/23/16 11:03 Anticipated date of discharge: 11/25/16 Attending Physician: Ralph Lee MD Primary care physician: Rommel Cruz MD Consults: PT/OT/Speech IRU Screening - Discharge Diagnosis (1) Closed head injury without loss of consciousness Status: Acute (2) Accidental fall Status: Acute (3) Closed fracture of finger Status: Acute (4) Abdominal contusion Status: Acute Discharge Diagnosis: Discharge diagnosis Closed head injury without loss of consciousness secondary to mechanical fall, acute Associated conditions and complications Mechanical fall Laceration and contusion to left eyebrow, acute Closed, nondisplaced fractures of the right 5th middle and distal phalanges, acute Abdominal contusion, acute Right great toe injury, acute leukocytosis - acute Bradycardia - acute Parotid lesion on the right - etiology uncertain; Consider ultrasound-guided percutaneous needle biopsy in outpatient setting. Parkinson's disease, chronic Hypertension, chronic Hypercholesterolemia, chronic Diabetes, Type II, chronic Constipation, chronic Osteoarthritis, chronic Chronic kidney disease, stage III Lumbar spondylosis, chronic Depression, chronic Gait instability, chronic Obesity, chronic - Laboratory Labs: Admit Lab 11/23/16 09:41 WBC 9.7 Hgb 13.0 Hct 40.3 MCV 89.4 Plt Count 280 Neut % (Auto) 38.8 Admit Lab 11/23/16 09:41 Sodium 141 Potassium 4.3 Chloride 101 Carbon Dioxide 28 Anion Gap 12 BUN 15.0 Creatinine 0.9 GFR Calculation 61 Glucose 168 H Calcium 9.6 Total Bilirubin 0.70 AST 23 ALT 32 Albumin 4.4 Lipase 109 11/24/16 03:55 11/24/16 03:55 - Radiology Radiology: Date of Exam: 11/23/16 Type of Exam: CT abdomen pelvis w con Findings: CT ABDOMEN: Included portions of the lung bases are clear. Heart size normal. No pleural effusion. There is some presumed ecchymosis over the anterior abdominal wall. The liver, spleen, kidneys, pancreas, and adrenal glands are normal. The gallbladder is thin walled and nondistended, without stones. The abdominal aorta is non-aneurysmal, with moderate calcific atherosclerotic disease. There is no retroperitoneal or mesenteric adenopathy. CT PELVIS: There is no significant distal colonic diverticulosis or evidence for diverticulitis. A normal appendix is not identified with certainty. There is no pelvic sidewall adenopathy. No free fluid. No definite bony destructive process. The vertebral body heights and the alignments appear relatively well-preserved. There is no definite acute appearing displaced lower thoracic or lumbar fracture. IMPRESSION: No evidence for infectious or inflammatory process. No evidence for mass or adenopathy. No evidence for solid organ or hollow viscus injury. Date of Exam: 11/23/16 Type of Exam: CT cervical spine wo con FINDINGS: The vertebral body heights and the alignments appear relatively well- preserved. There is no definite subluxation. There is mild diffuse posterior facet arthropathy. There is moderate degenerative disc disease maximal at C5-6 and C6-7. There is a suspicious lesion in the right parotid gland that measures 14 x 16.8 mm. The included portions of the lung apices are unremarkable. IMPRESSION: No definite displaced fracture or subluxation. Suspicious parotid lesion on the right. Consider ultrasound-guided percutaneous needle biopsy. Date of Exam: 11/23/16 PROCEDURE: XR hand RT min 3V Findings: Oblique nondisplaced fracture of the middle phalanx of the small finger. There is also a nondisplaced fracture of the base of the small finger distal phalanx extending into the DIP joint superimposed upon large osteophytes. No additional acute fracture or dislocation seen. Moderate osteoarthritis. Impression: Closed posttraumatic nondisplaced fractures of the small finger middle and distal phalanges. Date of Exam: 11/23/16 PROCEDURE: XR foot RT min 3V Findings: There is moderate diffuse osteopenia. There is a severe flexion deformity of the great toe IP joint with hyperextension of the MTP joint. No definite cortical destruction. There is a bone anchor in the calcaneus with hypertrophic bony changes of the proximal calcaneus that are probably reactive. There is also a moderate plantar calcaneal heel spur. Impression: Hyperextension of the first MTP joint with flexion of the IP joint of the great toe. Osteopenia without definite cortical destruction. Date of Exam: 11/23/16 PROCEDURE: CT head/brain wo con FINDINGS: There is mild prominence of the ventricles and sulci compatible with cortical atrophy. There is no mass, mass effect, or midline shift. No evidence for intracranial hemorrhage. No intra or extra-axial fluid collections. No evidence for depressed skull fracture. The included portions of the sinuses are clear. IMPRESSION: Mild cortical atrophy. No evidence for acute cortical infarct, intracranial hemorrhage, or mass. History of Present Illness HPI: La Beatty is a very pleasant 76-year-old female who presented to [facility] today for evaluation after sustaining a mechanical fall. She reports that this morning around 0845 she was on the front porch of her home, watering her amaya , when she suddenly found herself falling. She reports that she fell about 4 feet off her porch, striking her head on a garden sculpture. She denies any loss of consciousness or proceeding symptoms including no chest pain, shortness of breath, abdominal pain, nausea, vomiting, lightheadedness, dizziness, syncope or headache. She immediately pushed her life alert button to call for help. Upon arrival to the ED, she was alert and orientated x 3. In addition to having a 3 cm laceration to her left eye brow, she complained of slight headache and pain to her mid abdomen as well as pain in her right hand. She believes that she may have hit her abdomen when falling. Bruise noted to the anterior surface of her abdomen with mild tenderness with palpation. CT head, CT cervical spine and CT abdomen/pelvis were obtained and all were negative for acute changes or injury. X-ray of her Labs were obtained and were unremarkable. X-ray of her right hand revealed a closed, nondisplaced fracture of the right 5th middle and distal phalanges. Labs were obtained and were unremarkable. UA revealed trace bacteria with 1-3 WBC and 0-1 RBC. Her right 5th finger was placed in a long finger splint. Her brow laceration required 6 sutures. Given her age and mechanism of her fall, Dr. Lee was contacted and she was admitted into observation status for further evaluation, close neurologic and cardiac monitoring and pain control. Her length of stay is not expected to exceed more than 2 over nights. Mrs. Beatty is seen upon her arrival to her room, with her son, [id number] and 2 grandsons present on exam. She is alert and orientated and answers all questions easily and appropriately. She complains of a slight headache and right finger pain, currently rating her pain at 2/10. She also complains of new pain to her right great toe and foot. She has a history of diabetic neuropathy with decreased sensation to her feet. Exam of her feet reveals 1+ pedal edema bilaterally with 1+ pedal pulses bilaterally. Swelling with ecchymosis noted to the anterior aspect of the right foot between the 1st and 2nd toes and no obvious deformity. Tenderness to palpation noted to base of right great toe. Her past medical history is significant for Parkinson's disease, diabetes, hypertension, CAD and mild dysphagia. For complete details of the H&P refer to that document. Objective Vital signs: Temperature 97.9 F 11/25/16 15:29 Pulse Rate 60 11/25/16 15:29 Respiratory Rate 18 11/25/16 15:29 Blood Pressure 119/49 11/25/16 15:29 Pulse Oximetry 92 11/25/16 15:29 Height/Weight/BMI: Height 1.57 m Weight 95.36 kg Body Mass Index 38.1 Hospital Course This is a general summary of the patient's hospital course. For more details refer to the complete medical record. Hospital course: Assessment Closed head injury without loss of consciousness secondary to mechanical fall, acute. Laceration and contusion to left eyebrow, acute. Closed, nondisplaced fractures of the right 5th middle and distal phalanges, acute. Abdominal contusion, acute. Right great toe injury, acute. Parkinson's disease, chronic. Hypertension, chronic. Hypercholesterolemia, chronic. Diabetes, Type II, chronic. Constipation, chronic. Osteoarthritis, chronic. Parathyroid abnormality, chronic. Chronic kidney disease, stage III. Lumbar spondylosis, chronic. Depression, chronic. Gait instability, chronic. Obesity, chronic. 11/23/16-Observation Admit to observation status under the care of Dr. Lee. Close neurologic monitoring in light of head injury. CT head and c-spine were negative for acute changes. Patient complains of new right great toe and foot pain. Obtain foot x-ray now for further evaluation - results pending. Monitor cardiac function closely on telemetry. Continue home blood pressure medications (spironolactone, losartan, ASA, metoprolol). Continue home Lipitor for hypercholesterolemia. 1+ pedal edema noted on exam. Monitor daily weights closely for signs of fluid overload. History of Type II DM. Continue home glipizide and Tresiba insulin 36 units QHS. Monitor BGMs closely ACHS. [place] 5mg as needed for pain control. Encourage bowel motivation in light of narcotic pain control and history of constipation with Colace and miralax. SCDs for DVT prophylaxis. Will hold ASA in light of recent head injury. History of Parkinson's disease. Patient follows with Dr. Cruz. Continue home Sinemet. Prior clinic notes reveal concern for mild dysphagia. Will obtain speech evaluation. May consider PT/OT evaluation in light of recent fall and gait instability secondary to Parkinson's. Encourage incentive spirometry for pulmonary toileting. Contusion to abdomen secondary to fall. UA revealed no hematuria. CT abdomen/pelvis was negative for acute changes. Monitor closely for signs of worsening or deteriorating condition. 6 suture placed to left eye brow. Recommend monitor laceration closely for signs of infection. Keep incision clean and dry. Recommend suture removal in 5 -7 days. Ice as needed for swelling. Avoid ibuprofen for pain control in light of CKD. Will recheck CBC and BMP in AM to monitor blood counts, electrolytes and renal function. Upon discharge, patient's care will be returned to her PCP. 11/24/16 White count is up slightly to 12.0 compared to a normal reading of 9.7 yesterday. Could be related to her recent trauma. Repeat lipase remains within the normal range. She's had no neurologic changes. We'll have PT/OT evaluate and determine if she is a candidate for rehabilitation or she can be dismissed home. 11/25/16 Discussed case with CM. IRU accepted patient, but insurance declined IRU stay. Did get approval for skilled stay at [facility]. Will stop Metoprolol due to persistent bradycardia. Continue with pain control. May restart ASA tomorrow. Continue with PT/OT to help maximize functional status to allow patient to return to home independent living. Arrangements for skilled care at made. Will discharge patient for skilled care - PT/OT. F/U with Dr Cruz in 1 week Suture removal in 5-8 days. Continue splint to right 5th digit due to fracture. After recovery from her acute injury, further evaluation of her right parotid lesion could be performed. Consider ultrasound-guided percutaneous needle biopsy. See orders for details. DVT Prophylaxis: SCD's Discharge Plan - Med Rec/Dispo Referrals/Follow Up: Rommel Cruz MD [Family Provider] - [facility] Instructions: Fall Prevention for Older Adults (GEN) Prescriptions: New Cyclobenzaprine [Flexeril] 5 mg PO TID PRN #30 tab PRN Reason: Muscle Spasm Hydrocodone/APAP 5/325 [[place] 5/325] 1 tab PO Q4H PRN #30 tab PRN Reason: Pain Acetaminophen [Tylenol] 650 mg PO Q5H PRN tablet PRN Reason: Discomfort Bisacodyl Supp [Dulcolax] 10 mg RECTALLY DAILY PRN supp PRN Reason: Constipation Milk of Magnesia [Mom] 30 ml PO DAILY PRN udc PRN Reason: Constipation Continue Atorvastatin [Lipitor] 40 mg PO HS Acetaminophen 1,000 mg PO HS Spironolactone [Aldactone] 25 mg PO DAILY #0 Losartan Potassium 100 mg PO DAILY #0 Citalopram Hydrobromide [Citalopram HBr] 10 mg PO DAILY #0 Cholecalciferol (Vitamin D3) [Vitamin D3] 1,000 unit PO DAILY Aspirin [Jacki Chewable Aspirin] 81 mg PO DAILY Nitroglycerin 0.4 mg SL Q5M PRN PRN Reason: Chest Pain glipizide 5 mg tablet 5 mg PO BID 90 Days #180 tab Tresiba FlexTouch U-100 (insulin degludec) 100 unit/mL (3 mL) PEN 36 unit SQ HS ml carbidopa 25 mg-levodopa 100 mg tablet 1 tab PO TID #90 tab Discontinued Metoprolol Tartrate [Lopressor] 50 mg PO BID Potassium 99 mg PO DAILY Discharge Instructions/Outpatient Orders: Final Provider Discharge Instructions Location: Determined By Patient - Disposition [facility] ([facility]NF) - Attestation Attestation Narrative: 11/25/16 16:34 I have independently interviewed and examined patient prior to discharge. See my progress note for details. Medically stable for [facility] to [facility].
--- NOTE | 2016-11-25 16:39 | Extended Care Facility Orders ---
Admission Orders Admit to:: Shelter Allergies/Adverse Reactions: Allergies No Known Drug Allergies Allergy (Unknown, Verified 11/23/16 10:07) Admitting Diagnosis: fall, closed head injury Admitting Physician: Ralph Lee MD Attending Physician: Dr Cruz Code Status: Full Code Anticiapted Length of Stay: 30 days or less Rehab Potential: fair Rehab Prognosis: fair Diet: No added salt, no concentrated sweets. Speech recommends avoiding bread due to swallow problems. Wound/Incision Care: Remove suture in 5-8 days. Keep dry. May shower. May use Facility Protocol or Standing Orders: Yes May have flu vaccine: Yes Evaluations/Treatment: Speech, PT, OT Shelter Certification: I certify that SNF services are required to be given on an Inpatient basis because of the patients need for longterm care on a continuing basis for the condition(s) for which he/she received inpatient hospital services prior to his/her transfer to the SNF. SNF inpatient care is necessary for the following reasons Indication for Shelter: Diabetic Assessment, Med Admininistration, Other (Skilled PT/OT/Speech to maximize functional status ) - Additional Information In Event of Arrest: Start CPR,call 911,send patient to the ER Resident is Aware of Diagnosis: Yes Referrals: Rommel Cruz MD [Family Provider] - Additional Orders: Follow up with Dr Cruz in 1 week. Use IS 4-6 times a day. Keep right 5th finger in splint. Remove sutures in 5-8 days - keep dry but may shower. Accuchecks ac meal, q hs and prn.
== END 2016-11-25 18:55 ==
LOC: ED 09:34 → MED 09:34
PROVIDERS: ADMIT Hospitalist; ATTEND Hospitalist